=== PATIENT | male | born 1950 | race Two or more races ===

== ENCOUNTER 2024-08-26 13:01 | Outpatient (RCR) | payer MEDICAID, SELFPAY ==
--- NOTE | 2024-08-26 14:53 | CTCCONSULT_ITS ---
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 Jayden Kingston MD [facility] Referring physician. Ramesh Mercedes MD Reason for consultation. 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 History of Present Illness: Patient is a 74-year-old lady who noted a growing mass in the right groin [address] 10/04/2022 at [facility] 3 cm right groin soft tissue mass right external iliac lymphadenopathy and biopsy was performed 10/04/2022 which just revealed fibroepithelial tissue negative for malignancy. On 07/15/2024 the mass suspected to be infected underwent an excisional biopsy revealing invasive squamous SCCA moderate to poorly differentiated suspicious for lymphovascular invasion. Ultrasound and CT scan have been ordered not immediately available for my review. Patient reportedly has another CT scan and PET scan pending along with port placement. Patient now referred for radiation oncology consultation. is making daily wound bandage changes Past Medical History: Atrial fibrillation hypothyroidism hypertension acid reflux chronic constipation allergic rhinitis chronic sinusitis type 2 diabetes BPH kidney stones Medications iron Flomax levothyroxine Xarelto albuterol Cozaar Allergies none to meds Family history. Denies family history of cancer. Social History: Social drinker. Denies smoking has 5 children with current partner. Lives in [place] Review of Systems: Has right lower extremity pain headaches heartburn muscle pain cough discharge from penis easy bruising concern for sexual function rash Physical Exam: General: Well-appearing gentleman no acute distress HEENT: Atraumatic no cephalic extraocular is intact no oral lesion no cervical or supraclavicular adenopathy CV: Chest clear to auscultation heart regular rate and rhythm ABD: Soft no Juliette tenderness EXT: Right inguinal adenopathy noted with wound and packing in place. Assessment:#1. SCCA right groin and biopsy + 07/15/2024. #2. Workup including PET scan and various labs in progress under Dr. Mercedes?s direction. #3. Shall review the imaging studies already performed along with PET scan and labs pending. #4. Briefly reviewed the likely radiation therapy that would be needed for local regional control. #5, Thank you much allow me to evaluate and manage this patient Cc: Ramesh Mercedes MD: Electronically signed by: James Vasquez MD, DABR 08/26/2024 2:51 PM
--- NOTE | 2024-08-26 14:55 | CTCTXPLN_ITS ---
[facility] [place] [address] [place], [place] [address] Physician Clinical Treatment Planning Note Date of Service: 08/26/2024 Name: SIDNEY PEREZ : 1950 The patient has agreed to proceed with Radiation therapy. Tests and supporting medical records were interpreted to assist in defining the tumor location and extent of disease. Further imaging will be necessary to contour and delineate the volume to which the XRT will be provided. A. Treatment Intent: Curative B. Modality: 6 MV C. Requested Technique: VMAT D. Treatment Site: Right groin E. Critical structures to be contoured on plan: F. In order to accomplish this plan, I am ordering/Prescribing the followin. Simulations (s) will be performed to accomplish a reproducible treatment position, to determine optimal treatment portals/beam arrangements, to design beam modifying devices and verify treatment portals on patient prior to the commencement of Radiation Therapy. Pelvis 2. Devices; for immobilization and beam shaping: Right groin 3. CT Guidance for placement of XRT arguello Scan area: 4. Portal images Frequency: 5. Invivo transit dose measurement once per week on all VMAT patients. 6. Special Physics Consult Requested for: 7. Other requests: Special procedure chemo and radiation G. Dose Objectives: Palliative Electronically signed by: James Vasquez M.D. 08/26/2024 2:52 PM
--- NOTE | 2024-08-26 14:57 | CTCTXPLNST_ITS ---
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 Pt Treatment Intent: curative palliative other: Stage: Procedure CPT # Ordered Spec. Procedure 40325 1 Escobedo Complex (set-up) 84784 pelvis 1 Escobedo Simple 13448 IMRT Plan 66834 1 MLC Devices VMAT 98311 3 Escobedo 3 D 31630 TRTMT dev Complex 97039 Vac-Niurka 1 TRTMT dev simple 37712 Basic Kang 18942 9 Special Dosimetry 32536 Spec Physics 30817 Port Films 55198 SRS Cranial/1FX 36062 SBR 5 FX or Less /ex: 5 = 5 fx 04363 IMRT Simple 89342 5940 33 IMRT Complex 80240 IGRT 29008 35 Rad del com 6- 57839 Rad del com 11 98910 Cont Med Physics 60715 1 Treatment Planning 40359 1 Rad del com 20 mev 24422 Rad del inter 11-04 18486 Rad del inter 04-15 38224 Rad del simple 610 62550 Rad del simple 04-15 96823 Special Port Plan 00217 TRTMT dev inter 72347 Isodose Complex 41974 Isodose simple 85103 Resp Motion Mgmt Simulation 05912 Placement of Fiducial Markers 74022 Electronically Signed By: James Vasquez MD, ASHLEYR 08/26/2024 2:55 PM
== END 2024-09-24 23:59 | disposition home or self-care (01) ==
LOC: SCTC 13:01
PROVIDERS: PCP Internal Medicine; Referring Provider Radiology Therapeutic Radiology; Visit Provider Radiology Therapeutic Radiology
DX: C76.3 Malignant neoplasm of pelvis (principal)
CPT/HCPCS: 77470; 99213; G0463

== ENCOUNTER → 2024-09-16 | Outpatient (CLI) | payer MEDICAID, SELFPAY ==
--- NOTE | 2024-09-16 15:30 | XR_ITS ---
EXAMINATION: PET/CT FUSION SKULL TO THIGH EXAM DATE AND TIME: September 16, 2024 1550 hrs. Indications: Diagnosis unspecified cancer, prior to treatment, staging, CT pelvis October 04, 2022 right groin mass right pelvic lymphadenopathy CTDI:vol (mGy) 15.76 DLP: (mGycm) 1626 PROCEDURE: 15.7 mCi FDG was administered intravenously To allow for distribution and uptake of radiotracer, the patient was allowed to rest quietly in a shielded room. Imaging was performed on an integrated 16-slice PET/CT scanner, with scanning from the skull base to the mid thigh. Serum blood glucose at the time of the injection was measured 104 mg/dL. CT scanning was performed without oral or intravenous contrast material. FINDINGS: Head and Neck: There is no eden hypermetabolism in the neck. The visualized portions of the brain are normal in appearance on CT. Chest: 6 mm right infrahilar hypermetabolic lymph node Non hypermetabolic parenchymal disease in both lower lobes Abdomen and Pelvis: 10 mm hypermetabolic focus medial right lobe liver axial image 163 10 mm retrocaval hypermetabolic lymph node axial image 193 Multiple weakly hypermetabolic periaortic lymph nodes, the largest, axial image 197 measures 18 mm and more caudad left lateral periaortic lymph node 25 mm 15 mm hypermetabolic left common iliac lymph nodes 5 cm hypermetabolic right common femoral lymph node with multiple bilateral smaller hypermetabolic inguinal lymph nodes Anterior thigh on the right 28 mm hypermetabolic lymph node Musculoskeletal: Hypermetabolic right transverse process T1 IMPRESSION: 6 mm hypermetabolic right infrahilar lymph node 8mm hypermetabolic focus medial right lobe the liver, recommend MRI liver follow-up pre and post intravenous gadolinium Extensive hypermetabolic abdominal and pelvic lymphadenopathy as above, including large right common femoral and anterior right thigh lymphadenopathy, the latter amenable to CT-guided percutaneous biopsy as clinically warranted
== END | disposition home or self-care (01) ==
PROVIDERS: PCP Nurse Practitioner Family; Referring Provider Internal Medicine Hematology & Oncology; Visit Provider Internal Medicine Hematology & Oncology
DX: C77.4 Secondary and unspecified malignant neoplasm of inguinal and lower limb lymph nodes (principal); R59.0 Localized enlarged lymph nodes
CPT/HCPCS: 78816; A9552

== ENCOUNTER 2024-10-24 08:36 | Outpatient (RCR) | payer MEDICAID, SELFPAY ==
--- NOTE | 2024-09-26 10:22 | CTCSNOTE_ITS ---
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 (C) CT slices included pelvis (D) VMAT Will be needed for maximum sparing of adjacent normal critical structures. (E) Patient tolerated the simulation well and left the room in good condition. Electronically signed by: James Vasquez MD, MITZI 09/26/2024 10:20 AM
== END 2024-10-25 23:59 | disposition home or self-care (01) ==
LOC: SCTC 08:36
PROVIDERS: PCP Nurse Practitioner Family; Referring Provider Nurse Practitioner Family; Visit Provider Radiology Therapeutic Radiology
DX: Z51.0 Encounter for antineoplastic radiation therapy (principal); C49.5 Malignant neoplasm of connective and soft tissue of pelvis
CPT/HCPCS: 77014; 77290; 77300; 77301; 77334; 77336; 77338; 77385; 99424; 99425

== ENCOUNTER 2024-11-17 07:53 | Outpatient (RCR) | payer MEDICAID, SELFPAY ==
--- NOTE | 2024-10-27 09:59 | CTCTRTNOTE_ITS ---
[facility] [address] [place], [place] [address] Weekly Management Date: 10/27/2024 ?? Name: SIDNEY PEREZ : 1950 A. Patient is currently at 1620cGy. B. Patient is experiencing difficulty voiding urine. Also is having chest pain with imaging study showing possible aortic aneurysm. To be referred to thoracic surgery by primary MD.. BP noted to be elevated and this will be brought up with primary care physician as well. C. Resume radiation therapy. Flomax ordered. Electronically signed by: James Vasquez M.D. 10/27/2024 9:57 AM
== END 2024-11-24 23:59 | disposition home or self-care (01) ==
LOC: SCTC 07:53
PROVIDERS: PCP Nurse Practitioner Family; Referring Provider Nurse Practitioner Family; Visit Provider Radiology Therapeutic Radiology
DX: Z51.0 Encounter for antineoplastic radiation therapy (principal); C77.4 Secondary and unspecified malignant neoplasm of inguinal and lower limb lymph nodes; C80.1 Malignant (primary) neoplasm, unspecified; L59.9 Disorder of the skin and subcutaneous tissue related to radiation, unspecified; K12.33 Oral mucositis (ulcerative) due to radiation; Y84.2 Radiological procedure and radiotherapy as the cause of abnormal reaction of the patient, or of later complication, without mention of misadventure at the time of the procedure
CPT/HCPCS: 77336; 77385; 99211; G0463

== ENCOUNTER 2024-12-05 07:49 | Outpatient (CLI) | payer MEDICAID, SELFPAY ==
[2024-12-01 07:25] LABS: Basophils # (Auto) 0.1 Thou/mm3 (0.0-0.2); Basophils % (Auto) 1 % (0-2.5); Eosinophils # (Auto) 0.6 Thou/mm3 (0.0-0.5); Eosinophils % (Auto) 9 % (0-10); Hematocrit 35.5 % (41.0-53.0); Hemoglobin 11.6 g/dL (13.5-16.0); Immature Granulocytes Auto 0.01 Thou/mm3 (0.00-0.00); Lymphocytes # (Auto) 1.3 Thou/mm3 (1.0-4.8); Lymphocytes % (Auto) 21 % (10-50); Mean Corpuscular HGB Conc 32.7 g/dl (31.0-37.0); Mean Corpuscular Hemoglobin 25.3 pg (25.0-35.0); Mean Corpuscular Volume 78 fL (80-100); Monocytes # (Auto) 0.6 Thou/mm3 (0.0-0.8); Monocytes % (Auto) 9 % (0-12); Neutrophils # (Auto) 3.9 Thou/mm3 (1.8-7.7); Neutrophils % (Auto) 60 % (37-80); Nucleated Red Blood Cell # 0.00 Thou/mm3 (0.00-0.00); Nucleated Red Blood Cell % 0 /100 WBC (0); Platelet Count 245 Thou/mm3 (140-440); RDW Standard Deviation 50.8 fL (35.1-43.9); Red Blood Count 4.58 Miln/mm3 (4.50-5.90); White Blood Count 6.4 Thou/mm3 (3.8-10.6)
[2024-12-01 07:41] LABS: Anion Gap 10 (7-16); BUN/Creatinine Ratio 8 Ratio (12-20); Blood Urea Nitrogen 10 mg/dL (9-23); Calcium 9.4 mg/dL (8.3-10.6); Carbon Dioxide 25.8 mMol/L (20.0-31.0); Chloride 102 mMol/L (98-107); Creatinine (Component) 1.2 mg/dL (0.6-1.3); Glucose 102 mg/dL (74-106); INR 1.0 (0.9-1.3); Osmolality,Calculated 274 (275-295); Partial Thromboplastin Time 27.4 Seconds (22.0-36.0); Potassium 4.0 mMol/L (3.4-5.1); Prothrombin Time 10.9 Seconds (9.0-12.2); Sodium 138 mMol/L (136-145); eGFR > 60 See Note
[2024-12-02 08:58] VITALS: BP 132/78; PULSE 61; RESP 12; TEMP 36.1; O2SAT 95; BMI 31.0
--- NOTE | 2024-12-02 09:19 | PC.NURSE ---
patient scheduled for port placement and taking blood thinners. Dr. Vernon notified of patient last dose of Xarelto was 11/27/2024 and last aspirin dose sunday11/28/2024. Doctor wants patient off both blood thinners for 5 days, procedure rescheduled for 12/04/2024, patient and made aware to hold blood thinners until day of procedure.
[2024-12-05] VITALS (14 sets, daily range): BP systolic 121–134; BP diastolic 63–74; PULSE 47–64; RESP 12–22; TEMP 36.6; O2SAT 96–100; BMI 31.8
--- NOTE | 2024-12-05 09:30 | XR_ITS ---
Examination: IR venous implantation Port-A-Cath. Ultrasound-guided needle placement right internal jugular vein. Fluoroscopy AP Chest, portable single view Exam date and time: December 05, 2024 0848 hours INDICATIONS: Diagnosis squamous cell carcinoma, need for long-term intravenous chemotherapy. Informed consent provided Technique: A timeout was completed, verifying correct patient, procedure, site, positioning, and special equipment if applicable The patient was placed in a dependent position appropriate for central line placement based on the vein to be cannulated. The patient's right neck and chest was prepped and draped in sterile fashion. Maximum Sterile Barrier Technique used including cap, mask, sterile gown, sterile gloves, and sterile full body drape. If ultrasound technique used: sterile gel and sterile probe covers. Hand Hygiene performed using proper scrub, soap and water, or alcohol-based hand rub. Site right portable apparatus utilized to confirm patency of the right internal jugular vein Utilizing ultrasonographic guidance successful 21-gauge needle puncture into the right internal jugular vein Ultrasound images were recorded and stored. Successful micropuncture with a 21-gauge needle was performed. Blunt dissection utilized to form pocket in the subcutaneous chest 8 Gabonese 23 cm Port-A-Cath line connected to the Port-A-Cath reservoir and placed through a venous sheath into the superior vena cava in proper position Perfusion to the extremity distal to the point of catheter insertion was checked and found to be adequate The attending radiologist was present for the entire procedure Estimated blood loss3 cc. Findings: Under fluoroscopy, the tip of the Port-A-Cath is in good position in the vena cava. Portable chest x-ray, post Port-A-Cath, as ordered. Impression: Successful ultrasound-guided needle placement right internal jugular vein. Successful IR venous implantation [id number]-[id number]-[id number] 0.1 minute radiation dose 0.81 milligray. One spot fluoroscopic chest film AP portable chest completion procedure demonstrates satisfactory position Port-A-Cath May use Port-A-Cath.
[2024-12-05] MEDS: SODIUM CHLORIDE 0.9% 500 ML 500 ML 20 ML IV (09:34)
[2024-12-05] MEDS: fentaNYL CIT INJ 50 mCg/ML AMP 2ML 100 MCG IVP (09:57)
[2024-12-05] MEDS: LIDOCAINE INJ PF 1% 30 ML VIAL 8 ML INFL (09:59)
[2024-12-05] MEDS: LIDOCAINE 1% W/EPI 1:100K 20 ML VIAL 7 ML INFL (09:59)
[2024-12-05] MEDS: HEPARIN SOD LOCK SYR 100 UNIT/ML 500 UNIT STFIELD (09:59)
--- NOTE | 2024-12-05 17:17 | PC.NURSE ---
1022 patient is awake, alert, breathing unlabored, s/p port placement to right IJ, dressing dry with no bleeding, patient transferred to lab technician for 1hr recovery. 1155 patient is awake, alert, breathing unlabored, dressing dry with no bleeding, patient able to drink water with no nausea or vomiting, able to ambulate to bathroom with cane and void, mets discharge criteria, discharge instructions given in fijian and gibraltarian per patient' family member request, patient discharged home in wheelchair with all belongings.
== END 2024-12-05 11:55 | disposition home or self-care (01) ==
PROVIDERS: Radiology Diagnostic Radiology; PCP Nurse Practitioner Family; Referring Provider Internal Medicine Hematology & Oncology; Visit Provider Internal Medicine Hematology & Oncology
DX: C44.722 Squamous cell carcinoma of skin of right lower limb, including hip (principal); Z01.812 Encounter for preprocedural laboratory examination
CPT/HCPCS: 36558; 36415; 76937; 77001; 80048; 85025; 85610; 85730; C1769; C1788; C1894; J0689; J0690; J1642; J3010; J3490; J7050; J7999

== ENCOUNTER 2024-12-17 07:19 | Outpatient (RCR) | payer MEDICAID, SELFPAY ==
--- NOTE | 2024-11-26 08:36 | CTCTRTNOTE_ITS ---
[facility] [address] [place], [place] [address] Weekly Management Date: 11/26/2024 ?? Name: SIDNEY KWON : 1950 A. Patient is currently at 3780 cGy. B. Patient is well-healed from the period of rest. C. Resume radiation therapy. Has about 3 more weeks of radiation left. Electronically signed by: James Vasquez M.D. 11/26/2024 8:34 AM
== END 2024-12-25 23:59 | disposition home or self-care (01) ==
LOC: SCTC 07:19
PROVIDERS: PCP Nurse Practitioner Family; Referring Provider Nurse Practitioner Family; Visit Provider Radiology Therapeutic Radiology
DX: Z51.0 Encounter for antineoplastic radiation therapy (principal); C76.3 Malignant neoplasm of pelvis; L59.9 Disorder of the skin and subcutaneous tissue related to radiation, unspecified; Y84.2 Radiological procedure and radiotherapy as the cause of abnormal reaction of the patient, or of later complication, without mention of misadventure at the time of the procedure
CPT/HCPCS: 77336; 77385

== ENCOUNTER 2024-12-31 07:53 | Outpatient (RCR) | payer MEDICAID, SELFPAY ==
--- NOTE | 2024-12-31 08:36 | CTCTSUMM_ITS ---
[facility] 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 (C) Concomitant Chemotherapy: Yes (D) Radiation Dates: 10/13/2024 through 12/17/2024 patient seen for first follow-up on Treatment Prescription R groin VMAT 6 MV PHOT 5,940 cGy 33 180 cGy Approved (E) All arguello were treated using customized MLC Blocks (F) Finding at Discharge: Patient seen for first follow-up on 12/31/2024. There was significant decrease in the size of the right groin mass. (G) Discharge Instructions and F/U Appt was given: The patient was also advised to continue follow-up with Dr. Mercedes and primary care physician: Cc: Ramesh Mercedes MD Electronically signed by: James Vasquez MD, ASHLEYR 12/31/2024 8:34 AM
== END 2025-01-25 23:59 | disposition home or self-care (01) ==
LOC: SCTC 07:53
PROVIDERS: PCP Nurse Practitioner Family; Referring Provider Nurse Practitioner Family; Visit Provider Radiology Therapeutic Radiology
DX: C77.4 Secondary and unspecified malignant neoplasm of inguinal and lower limb lymph nodes (principal)
CPT/HCPCS: 99212; G0463

== ENCOUNTER → 2025-03-26 | Outpatient (CLI) | payer MEDICAID, SELFPAY ==
--- NOTE | 2025-03-26 07:30 | XR_ITS ---
Examination: CT chest, without intravenous contrast. CT abdomen, without intravenous contrast. CT pelvis, without intravenous contrast. 2-D sagittal and coronal reconstructions. 3-D reconstructions. Date and time of exam: March 26, 2025, 0737 hours, comparison October 04, 2022 CT pelvis, CT scan September 16, 2024 CTDI vol (mgy) 10.4 DLP (MGycm) 875 Technique: Multiple CT images, 3.0 mm slice thickness, obtained chest, abdomen, pelvis, with the high-resolution 64 slice scanner.. Sagittal and coronal 2-D reconstructions are obtained. 3-D reconstructions Low dose protocols were performed. One or more of the following dose reduction techniques were used; automated exposure control, adjustment of the mA and/or KV according to patient size, use of iterative reconstruction technique. Findings: Aneurysmal dilatation ascending thoracic aorta 4.3 cm Pulmonary artery segments are not enlarged On this noncontrast study no definite mediastinal lymphadenopathy Heavy calcification left anterior descending coronary artery Scarring in the upper lung zones and fairly diffusely in the left lung No pulmonary edema or yenifer lobar pneumonia Elevation left hemidiaphragm No liver lesions on this noncontrast study Gallbladder wall appears mildly thickened Spleen is not enlarged No pancreatic or adrenal mass Significant improvement in periaortic lymphadenopathy, remaining subcentimeter lymph nodes However, left common iliac lymph node measures 23 mm compared to 11 mm on September 16, 2024 with additional external iliac lymph nodes, the largest 25 mm Mild prostatomegaly Urinary bladder intact Merissa mass in the right groin is smaller, 40 mm compared with 7 cm Severe osteopenia IMPRESSION: Mild aneurysmal dilatation ascending thoracic aorta On this study no definite mediastinal lymphadenopathy Left lateral para-aortic lymphadenopathy has improved compared to the prior CT scan September 16, 2024 However, left common iliac lymph node measures 23 mm compared to 11 mm on September 16, 2024 with additional external iliac lymph nodes, the largest 25 mm Lymph merissa mass in the right groin measures 4.0 cm compared to 7.0 cm on September 16, 2024
== END | disposition home or self-care (01) ==
PROVIDERS: Referring Provider Internal Medicine Hematology & Oncology; Visit Provider Internal Medicine Hematology & Oncology
DX: I71.21 Aneurysm of the ascending aorta, without rupture (principal); R59.1 Generalized enlarged lymph nodes; R19.09 Other intra-abdominal and pelvic swelling, mass and lump; C77.4 Secondary and unspecified malignant neoplasm of inguinal and lower limb lymph nodes
CPT/HCPCS: 71250; 74176

== ENCOUNTER 2025-04-23 13:07 | Inpatient (IN) | payer MEDICAID, SELFPAY ==
[2025-04-23] VITALS (12 sets, daily range): BP systolic 95–130; BP diastolic 69–88; PULSE 78–150; RESP 16–20; TEMP 36.4–37.1; O2SAT 94–100; BMI 25.8
--- NOTE | 2025-04-23 13:40 | XR_ITS ---
EXAMINATION: AP chest single view TECHNIQUE: AP portable semiupright chest single view Date and time: April 23, 2025, 1351 hours, comparison June 07, 2020 INDICATION: Cough and chest pain beginning 2 days ago. FINDINGS: Prominent elevation left hemidiaphragm Subsegmental atelectasis left base Pneumonia right base obscuring detail lateral portion right hemidiaphragm Mild to moderate enlargement cardiac contour with ectatic enlarged thoracic aorta Right internal jugular Port-A-Cath tip SVC IMPRESSION: Pneumonia right base
--- NOTE | 2025-04-23 14:11 | PC.NURSE ---
PT REMOVED IV THAT WAS PLACED BY JALEESA MAYNARD, DR. AREVALO MADE AWARE.
--- NOTE | 2025-04-23 14:47 | PD.EDARRY ---
ED Arrhythmia Palp. 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 Per medics, [place] staff reported the patient had complained of feeling short of breath and saturating 88% on room air. State they placed the patient on oxygen prior to calling 911. On their arrival and once connected to the heart monitor, patient appeared to be in ventricular tachycardia. No other complaints reported to them. In the ED, patient reports feeling fine and has no complaints. Denies chest pain, cough, abdominal pain, n/v/d, or urinary symptoms. Related Data Home Medications ?Medication ?Instructions ?Recorded ?Confirmed amiodarone 200 mg tablet 200 mg PO QDAY 10/04/22 12/02/24 rivaroxaban 20 mg tablet (Xarelto) 20 mg PO QDAY 10/04/22 12/02/24 Held on 12/05/24. Instructions: Resume on 12/07/24. hold xarento until Sunday12/07/2024 tamsulosin 0.4 mg capsule 0.4 mg PO QDAY 10/04/22 12/02/24 aspirin 81 mg tablet,delayed 81 mg PO QDAY 12/02/24 12/02/24 release Held on 12/05/24. Instructions: Resume on 12/07/24. hold aspirin until Sunday12/07/2024 docusate sodium 100 mg capsule 100 mg PO QDAY 12/02/24 12/02/24 furosemide 20 mg tablet 20 mg PO QDAY 12/02/24 12/02/24 levothyroxine 50 mcg tablet 50 mcg PO QDAY 12/02/24 12/02/24 (Synthroid) losartan 50 mg tablet 50 mg PO QDAY 12/02/24 12/02/24 tramadol 50 mg tablet 50 mg PO Q8H 12/02/24 12/02/24 Allergies Allergy/AdvReac Type Severity Reaction Status Date / Time No Known Allergies Allergy Verified 07/11/25 09:01 Review of Systems Review of Systems Systems Reviewed: All systems reviewed, normal except as documented Past Medical History Past Medical History NEUROLOGIC: Positive Transient Ischemic Attacks (TIA) CARDIAC: Positive Atrial Fibrillation, Congestive Heart Failure and Hypertension GASTROINTESTINAL: Positive Gastrointestinal Disorders and Hiatal Hernia GENITOURINARY: Positive Benign Prostatic Hyperplasia MUSCULOSKELETAL: Positive Musculoskeletal Disorders ENT: Positive Cataracts ENDOCRINE: Positive Hypothyroidism OTHER HISTORY: Positive Chemotherapy, Radiation Therapy, Chicken Pox, Cancer and Lung Cancer Family History FAMILY HISTORY: Positive Family Cancer (mother) Surgical History SURGICAL: Positive Cardiac Surgery, Cardiac Catheterization and Angiogram (2020) Social History SMOKING STATUS: Former smoker SUBSTANCE USE: does not use ED Exam General Limitations: Present no limitations General appearance: Present alert and in no apparent distress Head Head exam: Present atraumatic Eye Eye exam: Present normal appearance, PERRL and EOMI ENT ENT exam: Present normal exam, normal oropharynx and mucous membranes moist Neck Neck exam: Present normal inspection, full ROM and trachea midline Chest Chest inspection: Present normal inspection and symmetric chest wall rise Respiratory Respiratory exam: Present normal lung sounds bilaterally Cardiovascular Cardiovascular exam: Present regular rate, normal rhythm and normal heart sounds Abdominal Exam Abdominal exam: Present soft and normal bowel sounds Extremities Exam Extremities exam: Present normal inspection, full ROM and other (No leg edema ) Back Exam Back exam: Present normal inspection and full ROM Neurological Exam Neurological exam: Present alert and CN II-XII intact Psychiatric Psychiatric exam: Present normal affect and normal mood Skin Skin exam: Present warm, dry, intact and normal color Course Quality Measures none Orders Category Date Time Status Roustabout Supervisor NOW Care 04/23/25 13:40 Active Continuous Pulse Oximetry NOW Care 04/23/25 13:40 Completed EKG (ED ONLY) *Do not use* NOW Care 04/23/25 13:09 Completed Insert IV NOW Care 04/23/25 13:40 Active EKG (ED Only) Stat Exams 04/23/25 13:09 Ordered XR chest 1V portable Stat Exams 04/23/25 13:40 Taken CBC Stat Lab 04/23/25 13:40 Ordered Comprehensive Metabolic Panel Stat Lab 04/23/25 13:40 Ordered Partial Thromboplastin Time Stat Lab 04/23/25 13:40 Ordered Prothrombin Time with INR Stat Lab 04/23/25 13:40 Ordered Troponin I Stat Lab 04/23/25 13:40 Ordered Urinalysis Stat Lab 04/23/25 13:40 Ordered Amiodarone Inj [Cordarone Inj] 200 mg Med 04/23/25 13:43 Discontinued Dextrose 5%-Water [D5w] 100 ml IV X1 Amiodarone [Cordarone] Med 04/23/25 14:22 Discontinued 200 mg PO X1 ONE LORazepam [Ativan] Med 04/23/25 14:22 Discontinued 1 mg PO X1 ONE Sodium Chloride 0.9% 1000 ml [Ns] 1,000 ml Med 04/23/25 13:40 Active IV 50 mls/hr Oxygen Delivery NOW RT 04/23/25 13:40 Active Vital Signs Vital signs: Vital Signs Temperature 98.5 F 04/23/25 13:15 Pulse Rate 150 H 04/23/25 13:15 Respiratory Rate 20 04/23/25 13:15 Blood Pressure 112/77 04/23/25 13:15 Pulse Oximetry (%) 98 04/23/25 13:15 Oxygen Delivery Method Room Air 04/23/25 13:15 Arrhythmia/Palpitations MDM Narrative MDM Narrative:: Fátima Krause am scribing for and in the presence of Dr. Turk. 1811: I spoke with hospitalist team C for admission. 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 ) Lab and/or radiology exams considered but not ordered:: None Interpretation Summary: Ordering Physician: Macario Turk MD Date of Service: 04/23/25 Procedure(s): XR chest 1V portable Accession Number(s): [id number] cc: Macario Turk MD; Nathan Sigala MD; Zay Vernon MD~ EXAMINATION: AP chest single view TECHNIQUE: AP portable semiupright chest single view Date and time: April 23, 2025, 1351 hours, comparison June 07, 2020 INDICATION: Cough and chest pain beginning 2 days ago. FINDINGS: Prominent elevation left hemidiaphragm Subsegmental atelectasis left base Pneumonia right base obscuring detail lateral portion right hemidiaphragm Mild to moderate enlargement cardiac contour with ectatic enlarged thoracic aorta Right internal jugular Port-A-Cath tip SVC IMPRESSION: Pneumonia right base Dictated By: Zay Vernon MD Signed By: <Electronically signed by Zay Vernon MD in OV> 04/23/25 1507 Medications / Prescriptions Medications or Prescriptions considered but not ordered:: None Medication administrations:: Medication Administration History Sodium Chloride (Ns) 1,000 mls @ 50 mls/hr IV .Q20H ONE Stop: 04/24/25 09:39 Discontinued Medications Amiodarone HCl (Amiodarone Hcl 200 Mg Tablet) 200 mg PO X1 ONE Stop: 04/23/25 14:23 Amiodarone HCl 200 mg/ (Dextrose) 104 mls @ 600 mls/hr IV X1 ONE Stop: 04/23/25 13:53 Lorazepam (Lorazepam 0.5 Mg Tablet) 1 mg PO X1 ONE Stop: 04/23/25 14:23 Consultations Consultation(s) initiated? (list below): No Diagnosis Most likely diagnosis given after review of the tests above:: Rapid afib/aflutter dementia Admission Indicated Admission indicated?: indicated Admission Request Was there a request for admission?: Yes Admission Attestation Admission request attestation: Discussed case with [] from Hospitalist service regarding admission. Discussed patients ED course, exam findings, labs, and radiology results. The Hospitalist [agrees,declines] to accept the patient for admission. Disposition Plan Disposition Plan: Admit Discharge Plan Plan Patient Disposition: Admit Acute Care w/in Hospital Prescriptions/Referrals Prescriptions/Med Rec: No Action amiodarone 200 mg Tablet 200 mg PO QDAY tamsulosin 0.4 mg Capsule 0.4 mg PO QDAY Xarelto 20 mg Tablet 20 mg PO QDAY Rx Instructions: must administer with evening meal docusate sodium 100 mg capsule 100 mg PO QDAY tramadol 50 mg tablet 50 mg PO Q8H levothyroxine [Synthroid] 50 mcg tablet 50 mcg PO QDAY furosemide 20 mg tablet 20 mg PO QDAY aspirin 81 mg tablet,delayed release (DR/EC) 81 mg PO QDAY Patient Comments: TAKE 1 TABLET BY MOUTH ONCE DAILY losartan 50 mg tablet 50 mg PO QDAY Referrals: Nathan Sigala MD [Primary Care Provider] - In 1 week Problem List Clinical Impression: Rapid atrial fibrillation, Dementia Patient/Caregiver Discharge Instructions Print Language: Nauruan Stand Alone Forms: Nedra Award Info., Patient Portal Info Letter
[2025-04-23] MEDS: AMIODARONE HCL 200 MG TABLET PO (15:11)
--- NOTE | 2025-04-23 16:59 | PC.NURSE ---
Pt. pulled out IV and pulled off all cardiac monitor technician leads as well as Sp02. Pt. is confused and trying to get out of bed. Pt. has a philippe draining to bag below bed. Pt. has a brief and had another BM. Pt. cleaned and brief changed. Pt. has BM today X 3. Pt. has a port to left upper chest.
--- NOTE | 2025-04-23 17:04 | XR_ITS ---
Examination: CT brain head without contrast. 2-D sagittal coronal reconstructions Date and time of exam: April 23, 2025, 1956 hours INDICATIONS: Altered mental status today CTDI: vol (mGy): 56 DLP: (mGycm): 1126 Technique: Multiple CT axial sections of the brain have been obtained, 5 mm slice thickness. Contrast has not been administered. 2-D sagittal, coronal reconstructions have been obtained Low dose protocols were performed. One or more of the following dose reduction techniques were used; automated exposure control, adjustment of the mA and/or KV according to patient size, use of iterative reconstruction technique. Findings: No significant ventricular enlargement. Frontal atrophy Intra-axial or extra-axial hemorrhage density is not seen. No mass effect or midline shift Basal cisterns are not remarkable. Fourth ventricle is midline. Cranial vault intact. Impression: Negative for acute hemorrhage, mass effect or midline shift
[2025-04-23 17:10] LABS: Collection Type, Urine Clean Catch
[2025-04-23 17:27] LABS: Bilirubin,Urine Negative (Negative); Blood,Urine Trace (Negative); Calcium Oxalate Crystals,Urine 2+; Clarity,Urine Turbid (Clear/Hazy); Color,Urine Yellow (Lt Yel-Yel); Glucose, Urine Negative (Negative); Ketones,Urine Negative (Negative); Leukocyte Esterase,Urine Positive (Negative); Nitrite,Urine Negative (Negative); PH,Urine 7.0 (5.0-7.0); Protein,Urine Trace (Neg - Trace); RBC,Urine 29 /hpf (0-3); Specific Gravity,Urine 1.018 (1.001-1.035); Squamous Epithelial Cell,Urine < 1 /hpf (0-5); Urobilinogen,Urine Negative mg/dL (0.0-1.0); WBC,Urine 20 /hpf (0-5)
[2025-04-23] MEDS: LORazepam 2 MG/ML VIAL 1 MG IVP (17:42)
[2025-04-23] MEDS: AMIODARONE 150 MG IVPB 150 MG/100 ML BAG 600 MG IV (17:45)
[2025-04-23 17:54] LABS: Basophils # (Auto) 0.1 Thou/mm3 (0.0-0.2); Basophils % (Auto) 1 % (0-2.5); Eosinophils # (Auto) 0.1 Thou/mm3 (0.0-0.5); Eosinophils % (Auto) 1 % (0-10); Hematocrit 33.0 % (41.0-53.0); Hemoglobin 10.6 g/dL (13.5-16.0); Immature Granulocytes Auto 0.05 Thou/mm3 (0.00-0.00); Lymphocytes # (Auto) 0.6 Thou/mm3 (1.0-4.8); Lymphocytes % (Auto) 6 % (10-50); Mean Corpuscular HGB Conc 32.1 g/dl (31.0-37.0); Mean Corpuscular Hemoglobin 26.6 pg (25.0-35.0); Mean Corpuscular Volume 83 fL (80-100); Monocytes # (Auto) 0.6 Thou/mm3 (0.0-0.8); Monocytes % (Auto) 6 % (0-12); Neutrophils # (Auto) 9.4 Thou/mm3 (1.8-7.7); Neutrophils % (Auto) 87 % (37-80); Nucleated Red Blood Cell # 0.00 Thou/mm3 (0.00-0.00); Nucleated Red Blood Cell % 0 /100 WBC (0); Platelet Count 259 Thou/mm3 (140-440); RDW Standard Deviation 51.3 fL (35.1-43.9); Red Blood Count 3.98 Miln/mm3 (4.50-5.90); White Blood Count 10.9 Thou/mm3 (3.8-10.6)
[2025-04-23] MEDS: AMIODARONE 360 MG IVPB 360 MG/200 ML BAG 33.333 MG IV (18:03)
[2025-04-23 18:05] LABS: Alanine Aminotransferase 30 U/L (10-49); Albumin, Serum 4.4 gm/dL (3.4-4.8); Albumin/Globulin Ratio 1.1 (1.2-2.2); Alkaline Phosphatase 125 U/L (46-116); Anion Gap 11 (7-16); Aspartate Amino Transferase 38 U/L (0-34); BUN/Creatinine Ratio 12 Ratio (12-20); Bilirubin,Total 0.7 mg/dL (0.3-1.2); Blood Urea Nitrogen 22 mg/dL (9-23); Calcium 9.2 mg/dL (8.3-10.6); Calcium (Corrected) 9.2 mg/dL (8.5-10.1); Carbon Dioxide 25.5 mMol/L (20.0-31.0); Chloride 100 mMol/L (98-107); Creatinine (Component) 1.8 mg/dL (0.6-1.3); Estimated Creatinine Clearance 33.3 mL/min (>60); Globulin 3.9 gm/dL (2.3-3.5); Glucose 133 mg/dL (74-106); Osmolality,Calculated 277 (275-295); Potassium 4.4 mMol/L (3.4-5.1); Sodium 136 mMol/L (136-145); Total Protein 8.3 gm/dL (5.7-8.2); Troponin I < 0.020 ng/mL (0.0-0.045); eGFR 38 See Note
[2025-04-23 18:08] LABS: INR 1.0 (0.9-1.3); Partial Thromboplastin Time 29.6 Seconds (22.0-36.0); Prothrombin Time 10.8 Seconds (9.0-12.2)
[2025-04-23] MEDS: ZIPRASIDONE INJ 20 MG/ML VIAL (NON-FORMULARY) 10 MG IM (18:08)
--- NOTE | 2025-04-23 18:12 | PC.NURSE ---
Pt. resting in bed, pt. is confused he asked me how much for an oil change? Pt.'s is bedside and states that pt. was in [facility] and fell last night trying to get out of bed. Vanna GOULD is bedside watching pt. for his safety.
[2025-04-23] MEDS: SODIUM CHLORIDE 0.9% 1000 ML 1,000 ML 999 ML IV (21:50)
--- NOTE | 2025-04-23 21:58 | PD.RESHP ---
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 Patient admitted for a fib with RVR. ED Course Summary Vitals: BP 112/77 HR 150 RR 20 R 98.5F O2 sat 98% RA Labs: WBC 10.9 Hgb 10.6 coag wnl BUN 22 Cr 1.8 Cr Cl 33.3 AST 38 ALP 125 UA Turbid LE + 29 RBC 20 WBC +2 calcium oxalate Imaging: Head CT negative for acute hemorrhage, mass effect or midline shift CXR pneumonia right base EKG (in ED chart) HR 146 QTC 413 Treatment: NaCl 1 L, ziprasidone 10mg, amiodarone drip started, lorazepam 1mgx2, amiodarone 200mg Per medics, [place] staff reported the patient had complained of feeling short of breath and saturating 88% on room air. State they placed the patient on oxygen prior to calling 911. On their arrival and once connected to the heart monitor, patient appeared to be in ventricular tachycardia. No other complaints reported to them. Per ED note, patient reports feeling fine and has no complaints. Denies chest pain, cough, abdominal pain, n/v/d, or urinary symptoms. Dr. Patel is his ward assistant. On initial evaluation the patient is AOx1 and GCS 15 however incredibly somnolent most likely secondary to the 2mg of lorzaepam and 10mg of ziprasidone given due to his immense agitation on arrival. Fortunately his was present and assisted with the interview, unfortunately she is not able to articulate most of his medical history because she has been so stressed dealing with his health the last few weeks. Their eldest daughter is the most apt at explaining the recent events but she was unable to be reached by phone at the moment. The history the interviewer could obtain was that the patient was admitted to [facility] recently for about 3 weeks and was discharged to a rehab where he then needed a kidney stents due to a bladder infection. It is unclear how accurate this narrative is. Now at the rehab he had shortness of breath for the past day and was found to be in ventricular tachycardia. His reports patient has urinary discomfort but no chest pain. Family reports he drinks 12-24 beers most days. He has never had any withdrawals or seizures. The is unsure if that is too many beers, states he does not drink when he is sick like this in the hospital but cannot find other exceptions. Of note he drinks more beers when the day is hotter out. Code: Full per , but please re-check with patient when he is able to be more successfully roused and oriented Insulin: None Medical Hx: Please see 1-liner above Medications: metoprolol 25mg BID - all other meds family is unaware of - pending med rec Allergies: NKA Surgical history: Bx of squamous cell cancer Fhx: Noncontributory Living: with Work: [employer] Alcohol: 12-24 beers/ day Cigarettes/tobacco: None Recreational drugs: None All 12 systems reviewed and were negative except otherwise stated in HPI. Exam Vital Signs Temp Pulse Resp BP Pulse Ox O2 Del Method 97.7 F 78 20 107/73 97 Room Air 04/23/25 20:58 04/23/25 20:58 04/23/25 20:58 04/23/25 20:58 04/23/25 20:58 04/23/25 20:58 Narrative Exam GENERAL APPEARANCE: AOx1. Patient is deeply somnolent, however arousable. HEENT: Normocephalic atraumatic, no facial trauma, neck is supple. Lids/conjunctiva normal. Mucous membranes moist, nares normal, lips/teeth normal uvula midline without oral pharyngeal erythema, exudate or swelling TMs normal bilaterally. No lymphangitis/lymphedema. CARDIAC: Regular rate and rhythm, S1+S2 heard. No murmurs, rubs, or gallops noted RESPIRATORY: respiratory effort normal, speaks in full sentences, no tripod position, no accessory muscle use. R lung rales ABDOMINAL: NBS. Soft, ND/NT. No evidence of fluid wave. No pulsatile masses on exam, rebound tenderness, Bullock sign or pain over Mcburney's point. MUSCLES/EXTREMITIES: No abnormal range of motion, no swelling. +Suprapubic tenderness DERM: Warm, pink and dry. No rashes, dermatoses, petechiae or lesions. NEUROLOGICAL: Speech is clear and appropriate. Normal level of consciousness. Gait and coordination are normal. 5/5 strength in all extremities. PSYCH: Normal mood and affect. Judgement/competence is appropriate Results: Labs 04/25/25 03:17 04/25/25 03:17 Labs: Short CBC 04/23/25 Range/Units 17:25 WBC 10.9 H (3.8-10.6) Thou/mm3 Hgb 10.6 L (13.5-16.0) g/dL Hct 33.0 L (41.0-53.0) % Plt Count 259 (140-440) Thou/mm3 BMP 04/23/25 17:25 Sodium 136 Potassium 4.4 Chloride 100 Carbon Dioxide 25.5 BUN 22 Creatinine 1.8 H Glucose 133 H Calcium 9.2 Cardiac Enzymes 04/23/25 Range/Units 17:25 Troponin I < 0.020 (0.0-0.045) ng/mL Liver Function 04/23/25 Range/Units 17:25 Total Bilirubin 0.7 (0.3-1.2) mg/dL AST 38 H (0-34) U/L ALT 30 (10-49) U/L Alkaline Phosphatase 125 H (46-116) U/L Albumin 4.4 (3.4-4.8) gm/dL Urine 04/23/25 Range/Units 16:54 Urine Color Yellow (Lt Yel-Yel) Urine Clarity Turbid A (Clear/Hazy) Urine pH 7.0 (5.0-7.0) Ur Specific Aurora 1.018 (1.001-1.035) Urine Protein Trace (Neg - Trace) Urine Glucose (UA) Negative (Negative) Quality Measures Quality Measures VTE prophylaxis and none Advance care planning discussed with:: spouse Medications Home Medications and Allergies Home Medications ?Medication ?Instructions ?Recorded ?Confirmed ?Type amiodarone 200 mg tablet 200 mg PO QDAY 10/04/22 04/24/25 History rivaroxaban 20 mg tablet (Xarelto) 20 mg PO QDAY 10/04/22 04/24/25 History tamsulosin 0.4 mg capsule 0.4 mg PO QDAY 10/04/22 04/24/25 History aspirin 81 mg tablet,delayed 81 mg PO QDAY 12/02/24 04/24/25 History release docusate sodium 100 mg capsule 100 mg PO QDAY 12/02/24 04/24/25 History furosemide 20 mg tablet 20 mg PO QDAY 12/02/24 04/24/25 History levothyroxine 50 mcg tablet 50 mcg PO QDAY 12/02/24 04/24/25 History (Synthroid) losartan 50 mg tablet 50 mg PO QDAY 12/02/24 04/24/25 History tramadol 50 mg tablet 50 mg PO Q8H 12/02/24 04/24/25 History magnesium hydroxide 400 mg/5 mL 5 ml PO QDAY PRN constipation 04/24/25 04/24/25 History oral suspension (Gentle Laxative (magnesium hydroxide)) metoprolol tartrate 50 mg tablet 25 mg PO BID 04/24/25 04/24/25 History (Lopressor) montelukast 10 mg tablet 10 mg PO QDAY 04/24/25 04/24/25 History quetiapine 25 mg tablet 50 mg PO BID 04/24/25 04/24/25 History Allergies Allergy/AdvReac Type Severity Reaction Status Date / Time No Known Allergies Allergy Verified 12/05/24 09:01 Visit Medications Acetaminophen (Acetaminophen 325 Mg Tablet) 650 mg PO Q6H PRN PRN Reason: Fever >101.5 Stop: 05/23/25 21:23 Diazepam (Diazepam Inj 5 Mg/Ml Vial 2 Ml) 10 mg IVP X1 PRN PRN Reason: Breakthrough Agitation Folic Acid (Folic Acid 1 Mg Tablet) 1 mg PO QDAY SHONA Stop: 05/24/25 08:59 Sodium Chloride (Ns) 1,000 mls @ 50 mls/hr IV .Q20H ONE Stop: 04/24/25 09:39 Last Admin: 04/23/25 15:13 Dose: Not Given Amiodarone HCl/Dextrose (Nexterone Ivpb) 360 mg in 200 mls @ 33.333 mls/hr IV .Q6H ONE Stop: 04/23/25 23:02 Last Admin: 04/23/25 18:03 Dose: 33.333 mls/hr Amiodarone HCl/Dextrose (Nexterone Ivpb) 360 mg in 200 mls @ 16.667 mls/hr IV .Q12H SHONA Stop: 04/24/25 23:02 Sodium Chloride (Ns) 1,000 mls @ 999 mls/hr IV .Q1H1M ONE Stop: 04/23/25 22:33 Last Admin: 04/23/25 21:50 Dose: 999 mls/hr Ceftriaxone Sodium/Dextrose (Rocephin/D5w 1gm Iv Premix) 1 gm in 50 mls @ 100 mls/hr IV QDAY [facility] Stop: 04/30/25 21:57 Lorazepam (Lorazepam 0.5 Mg Tablet) 0.5 mg PO Q4HR PRN PRN Reason: CIWA Score 2-6 Stop: 04/28/25 21:23 Lorazepam (Lorazepam 0.5 Mg Tablet) 1 mg PO Q4HR PRN PRN Reason: CIWA SCORE 7-11 Stop: 04/28/25 21:29 Lorazepam (Lorazepam 0.5 Mg Tablet) 2 mg PO Q4HR PRN PRN Reason: CIWA SCORE 12-15 Stop: 04/28/25 21:29 Thiamine HCl (Thiamine Inj 100 Mg/Ml Vial 2 Ml) 100 mg IVP QDAY [facility] Stop: 05/24/25 08:59 Discontinued Medications Amiodarone HCl (Amiodarone Hcl 200 Mg Tablet) 200 mg PO X1 ONE Stop: 04/23/25 14:23 Last Admin: 04/23/25 15:11 Dose: 200 mg Amiodarone HCl 200 mg/ (Dextrose) 104 mls @ 600 mls/hr IV X1 ONE Stop: 04/23/25 13:53 Last Admin: 04/23/25 15:14 Dose: Not Given Amiodarone HCl/Dextrose (Nexterone Ivpb) 150 mg in 100 mls @ 600 mls/hr IV .Q10M ONE Stop: 04/23/25 17:10 Last Infusion: 04/23/25 17:56 Dose: Infused Lorazepam (Lorazepam 0.5 Mg Tablet) 1 mg PO X1 ONE Stop: 04/23/25 14:23 Last Admin: 04/23/25 15:11 Dose: 1 mg Lorazepam (Lorazepam 2 Mg/Ml Vial) 1 mg IVP X1 ONE Stop: 04/23/25 17:06 Last Admin: 04/23/25 17:42 Dose: 1 mg Ziprasidone (Ziprasidone Inj 20 Mg/Ml Vial (Non-Formulary)) 10 mg IM X1 ONE Stop: 04/23/25 17:19 Last Admin: 04/23/25 18:08 Dose: 10 mg Assessment & Plan Plan 75 year old male with history of atrial fibrillation, hypertension, diabetes, hyperlipidemia, hypothyroidism, BPH, 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 #A fib with RVR EKG (in ED chart) HR 146 QTC 413. Amiodarone drip started in ED HR resolved from 150 to 65. Plan: -Continue amio drip for 24 hours -Holding home metoprolol -Please consider speaking with Dr. Patel his ward assistant. #Acyte hypoxic respiratory failure #Squamous cell carcinoma malignant neoplasm with liver lung and bone metastasis and lower limb lymph nodes Ddx CAP atypicals gram negatives, or pulm mets [place] staff reported the patient had complained of feeling short of breath and saturating 88% on room air. Has lung pulmonary metastases. Rales heard on physical exam. CXR pneumonia right base, could be volume overload. Plan: -No antibiotics at the moment - patient just completed augmentin at [facility] -FUP sputum cx:___ #SITA Cr 1.6 Most likely secondary to volume depletion Plan: -IVF #UTI reports dysuria. Suprapubic tenderness on physical exam. UA Turbid LE + 29 RBC 20 WBC +2 calcium oxalate. No stones seen on imaging. Please consider CTAP for best visualization or concern for stones is enhanced. Plan: -Ceftriaxone 1g IV QD -FUP urine cx:___ #Alcohol abuse #[facility] Patient drinks 12-24 beers/day has never had alcohol withdrawals. Plan: -[facility] -Folic acid -Thiamine #Hypertension Patient family unable to assist with medications Plan -Restart pending med rec #Noninsulin dependent diabetes Patient was noted to be pre-diabetic. A1c 6.2 Plan: -Diabetes education #Hyperlipidemia Patient family unable to assist with medications Plan -Restart pending med rec #Hypothyroidism Patient family unable to assist with medications Plan -Restart pending med rec #BPH Patient family unable to assist with medications Plan -Restart pending med rec Health Maintenance: Code status: Full DVT prophylaxis: Heparin subq GI prophylaxis: protonix Diet: carb consistent Hearn: yes Lines: PIV Supplemental O2: NC Disposition: Tele bed afib with RVR Patient seen and reviewed with attending Dr. Hall. Note written by Ildefonso Konstantin MD PGY-1 Attending Provider Attestation/Addendum After examination of the patient and review of the clinical data I feel that this patient needs admission to the hospital for further treatment/evaluation. Plan of care discussed with patient and is in agreement. I Jericho Hall MD, attest that I was physically present for gruber portions of evaluation, and examined patient, labs and imagings and plan of care were discussed with IM residents team, and I agree with the findings and plans documented above.
[2025-04-23 22:46] LABS: Procalcitonin 0.13 ng/ml (0.0-0.49)
[2025-04-23 23:52] LABS: COVID-19 Antigen (In-House) Negative (Negative)
[2025-04-24] VITALS (13 sets, daily range): BP systolic 113–149; BP diastolic 54–85; PULSE 65–82; RESP 14–98; TEMP 36.1–36.7; O2SAT 92–98
[2025-04-24 01:09] LABS: Alcohol, Urine Negative (Negative)
[2025-04-24] MEDS: cefTRIAXone/D5w 1gm IV premix 1 GM/50 ML BAG IV ×2 (01:09→08:36)
[2025-04-24] MEDS: AMIODARONE 360 MG IVPB 360 MG/200 ML BAG 16.667 MG IV ×2 (01:16→14:24)
--- NOTE | 2025-04-24 01:22 | PC.NURSE ---
Late Note Entry: Normal Saline infused on left IV site.
[2025-04-24 05:00] LABS: Basophils # (Auto) 0.1 Thou/mm3 (0.0-0.2); Basophils % (Auto) 1 % (0-2.5); Eosinophils # (Auto) 0.3 Thou/mm3 (0.0-0.5); Eosinophils % (Auto) 4 % (0-10); Hematocrit 28.3 % (41.0-53.0); Hemoglobin 9.2 g/dL (13.5-16.0); Immature Granulocytes Auto 0.03 Thou/mm3 (0.00-0.00); Lymphocytes # (Auto) 0.6 Thou/mm3 (1.0-4.8); Lymphocytes % (Auto) 7 % (10-50); Mean Corpuscular HGB Conc 32.5 g/dl (31.0-37.0); Mean Corpuscular Hemoglobin 27.0 pg (25.0-35.0); Mean Corpuscular Volume 83 fL (80-100); Monocytes # (Auto) 0.5 Thou/mm3 (0.0-0.8); Monocytes % (Auto) 6 % (0-12); Neutrophils # (Auto) 6.5 Thou/mm3 (1.8-7.7); Neutrophils % (Auto) 82 % (37-80); Nucleated Red Blood Cell # 0.02 Thou/mm3 (0.00-0.00); Nucleated Red Blood Cell % 0 /100 WBC (0); Platelet Count 197 Thou/mm3 (140-440); RDW Standard Deviation 50.9 fL (35.1-43.9); Red Blood Count 3.41 Miln/mm3 (4.50-5.90); White Blood Count 7.9 Thou/mm3 (3.8-10.6)
[2025-04-24 05:22] LABS: Glucose Estimated Average 131 mg/dL (80-131); Hemoglobin A1C 6.2 % Hgb (4.8-6.0)
[2025-04-24 05:29] LABS: Alanine Aminotransferase 25 U/L (10-49); Albumin, Serum 3.7 gm/dL (3.4-4.8); Albumin/Globulin Ratio 1.2 (1.2-2.2); Alkaline Phosphatase 104 U/L (46-116); Anion Gap 11 (7-16); Aspartate Amino Transferase 35 U/L (0-34); BUN/Creatinine Ratio 14 Ratio (12-20); Bilirubin,Total 0.4 mg/dL (0.3-1.2); Blood Urea Nitrogen 23 mg/dL (9-23); Calcium 8.5 mg/dL (8.3-10.6); Calcium (Corrected) 8.7 mg/dL (8.5-10.1); Carbon Dioxide 24.6 mMol/L (20.0-31.0); Chloride 101 mMol/L (98-107); Creatinine (Component) 1.6 mg/dL (0.6-1.3); Estimated Creatinine Clearance 37.4 mL/min (>60); Globulin 3.1 gm/dL (2.3-3.5); Glucose 118 mg/dL (74-106); Magnesium 2.0 mg/dL (1.6-2.6); Osmolality,Calculated 278 (275-295); Phosphorous 3.4 mg/dL (2.4-5.1); Potassium 4.3 mMol/L (3.4-5.1); Sodium 137 mMol/L (136-145); Total Protein 6.8 gm/dL (5.7-8.2); eGFR 44 See Note
--- NOTE | 2025-04-24 07:55 | EKG_ITS ---
[facility] Test Date: 2025-04-24 Pat Name: SIDNEY KWON [facility] [employer] Photographer: SHANA : 1950 Requested By: Vamshi Ahn Order Number: [id number] Reading MD: Vamshi Ahn Measurements Intervals Anza Rate: 65 P: 25 CT: 187 QRS: -88 QRSD: 165 T: 59 QT: 496 QTc: 519 Interpretive Statements SINUS RHYTHM INTRAVENTRICULAR CONDUCTION DELAY No previous ECG available for comparison /[id number]/S0/[id number]
--- NOTE | 2025-04-24 07:56 | ECHO_ITS ---
Patient Info Name: Kraig Saul Age: 75 years : 1950 Gender: Male Ht: 173 cm Wt: 77 kg BSA: 1.93 m2 BP: 128 / 68 mmHg HR: 71 bpm Exam Date: 04/24/2025 1:04 PM Admit Date: 04/23/2025 Site: [facility] Room Number: [id number] Patient Status: I Technical Quality: Poor Exam Type: CA echo doppler complete Reason for Poor Study: poor echocardiographic windows [employer] Teacher: Viviana Jeffrey Ordering Physician: Vamshi Ahn Study Info Indications A Fib - Primary Location: S2NX Left Ventricular Outflow Tract Name Value Normal LVOT 2D LVOT Diameter 1.8 cm LVOT Doppler LVOT Peak Velocity 121 cm/s LVOT Mean Gradient 3 mmHg LVOT VTI 21 cm LVOT VTI/AV VTI Ratio 0.9 LVOT Stroke Volume 52 ml Mitral Valve Name Value Normal MV Doppler MV Decel [place] 315 cm/s2 MV PHT 54 ms MV Area (PHT) 4.1 cm2 4.0-5.0 MV Diastolic Function MV E Peak Velocity 59 cm/s MV A Peak Velocity 56 cm/s MV E/A 1.0 MV Annular TDI MV Septal e' Velocity 6.7 cm/s MV E/e' (Septal) 8.7 MV Lateral e' Velocity 5.4 cm/s MV E/e' (Lateral) 10.8 MV e' Average 6.09 cm/s MV E/e' (Average) 9.7 Tricuspid Valve Name Value Normal Estimated PAP/RSVP RA Pressure 3 mmHg <=5 TV Annular TDI TV Lateral Hannah s' Velocity 9.2 cm/s >=9.5 Aortic Valve Name Value Normal AV Doppler AV Peak Velocity 142 cm/s AV Mean Gradient 4 mmHg AV VTI 22 cm AV Area (Cont Eq VTI) 2.4 cm2 >=3.0 AV Area (Cont Eq Enoch) 2.2 cm2 AV DI (Enoch) 0.85 AV Regurgitation 2D LVOT Area 2.5 cm2 AV Regurgitation Doppler AR Decel [place] 155 cm/s2 AR PHT 438 ms Ventricles Name Value Normal LV Dimensions 2D/MM LVOT Diameter 1.8 cm LV Fractional Shortening/Ejection Fraction 2D/MM LV Diastolic Volume (4C MOD) 54 ml LV EF (4C MOD) 56 % LV Diastolic Volume (2C MOD) 47 ml LV EF (2C MOD) 55 % LV Diastolic Volume (BP MOD) 52 ml 62-150 LV Diastolic Volume Index (BP MOD) 27 ml/m2 34-74 LV Systolic Volume (BP MOD) 22 ml 21-61 LV Systolic Volume Index (BP MOD) 12 ml/m2 11-31 LV EF (BP MOD) 57 % 52-72 LV Diastolic Length (4C) 5.6 cm LV Systolic Length (4C) 5.9 cm LV Stroke Volume (4C MOD) 30 ml RV Dimensions 2D/MM TV Lateral Hannah s' Velocity 9.2 cm/s >=9.5 Atria Name Value Normal LA Dimensions LA Volume (4C A-L) 22 ml LA Volume (BP A-L) 34 ml Left Ventricle Left ventricular chamber dimension is decreased. Left ventricular systolic function is normal with visually estimated ejection fraction of 50-55%. There is normal geometry noted in the left ventricle. Left ventricular segmental wall motion is normal. There is normal diastolic function in the left ventricle. Right Ventricle Right ventricular chamber dimension is normal. Right ventricular systolic function is reduced. Left Atrium Left atrial chamber dimension is normal. Right Atrium Right atrial chamber dimension is normal. Aortic Valve The aortic valve is trileaflet. There is no aortic valve sclerosis. There is no aortic valve stenosis with a peak velocity of 142 cm/s, mean gradient of 4 mmHg, and aortic valve area of 2.4 cm2. There is mild aortic valve regurgitation. Pulmonic Valve The pulmonic valve is normal. There is no pulmonic valve stenosis. There is no pulmonic regurgitation. Mitral Valve The mitral valve has normal leaflets. There is no mitral valve stenosis. There is trace mitral valve regurgitation. Tricuspid Valve The tricuspid valve leaflets are normal. There is no tricuspid valve stenosis. There is trace tricuspid valve regurgitation. Unable to estimate pulmonary artery systolic pressure due to inadequate tricuspid regurgitant envelope. Pericardium/Pleural The pericardium appears normal. There is trivial pericardial effusion with no tamponade. No pleural effusion visualized. Inferior Vena Cava Normal inferior vena cava with >50% collapse upon inspiration consistent with normal right atrial pressure, 3 mmHg. Aorta The aortic measurements are indexed to age and body surface area. The aortic root at the sinus of Valsalva is not well visualized. The prox ascending aorta is not well visualized. Summary 1. Normal Left ventricle size and systolic function is normal. Estimated ejection fraction is 50-55%. 2. The right ventricle not well visualized but function appears normal. 3. There is mild aortic valve regurgitation. Mild AV sclerosis without stenosis. 4. There is trace mitral valve regurgitation. Mild MAC. 5. There is trace tricuspid valve regurgitation. Report Signatures Finalized by Jakob Milian on 04/25/2025 12:18 PM
[2025-04-24 08:34] LABS: Cardiac Risk Estimate 3.4 RATIO (4.0-6.7); Cholesterol 124 mg/dL (132-200); Free T4 (Free Thyroxine) 1.73 ng/dL (0.89-1.76); HDL Cholesterol 36 mg/dL (40-60); LDL Cholesterol,Calculated 74 mg/dL (0-130); Thyroid Stimulating Hormone 3.16 uIU/mL (0.55-4.78); Triglycerides 71 mg/dL (30-150)
[2025-04-24] MEDS: THIAMINE INJ 100 MG/ML VIAL 2 ML IVP (08:36)
[2025-04-24] MEDS: Magnesium Sulfate 2 GM Ivpb 2 GM/50 ML BAG IV (08:37)
[2025-04-24] MEDS: FOLIC ACID 1 MG TABLET PO (08:37)
[2025-04-24] MEDS: HEPARIN SOD INJ 5000 UNIT/ML VIAL SC (08:38)
--- NOTE | 2025-04-24 08:44 | PC.SS ---
Follow up note: On Amidodarone drip. On IV antibiotic. ECHO pending.
[2025-04-24 09:35] LABS: Iron 13 mcg/dL (65-175); Percent Iron Saturation 4 % (20-55); Total Iron Binding Capacity 271 mcg/dL (250-425); Unsaturated Iron Binding 258 (225-295)
[2025-04-24 09:50] LABS: Folate 21.18 ng/mL (>5.38); Vitamin B12 564 pg/mL (211-911)
[2025-04-24 10:27] LABS: Path Review Blood Smear Sent to Pathologist
[2025-04-24 12:40] LABS: Partial Thromboplastin Time 31.0 Seconds (22.0-36.0)
--- NOTE | 2025-04-24 12:56 | PD.RESCONSUL ---
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 The patient has completed radiation therapy under the care of Dr. Vasquez. He also has a history of atrial fibrillation hypertension, diabetes, hyperlipidemia, hypothyroidism, BPH, and dementia. The patient presents to the emergency department for evaluation of an abnormal heart rate. The patient is alert and oriented only to person and birthday and is a poor historian, with baseline confusion and dementia. He denies chest pain, palpitations, shortness of breath, dizziness, paroxysmal nocturnal dyspnea , or other associated symptoms. [facility] staff reported that the patient had complained of feeling short of breath and desaturated to 88%. He was placed on oxygen, and EMS was called. On EMS arrival, the patient was found to be in ventricular tachycardia, though he denied any associated symptoms such as chest pain or shortness of breath. The patient was recently admitted to [facility] for A-fib RVR, NSTEMI and SITA. Additional history is unavailable at this time. Recent Imaging: Chest CT (03/26/2025): Mild aneurysmal dilatation of the ascending thoracic aorta. Left lateral para-aortic lymphadenopathy has improved compared to the prior scan (August 2024). Notably, the left common iliac node measures 23 mm (compared to 11 mm in August 2024) and additional external iliac lymph nodes, with the largest measuring 25 mm. Lymph eden mass in the right groin measures 4 cm (down from 7 cm in August 2024). ED Course: Vitals: BP 112/77 mmHg, HR 150 bpm, RR 20, Temp 98.5?F, O2 saturation 98% on room air. Labs:WBC 10.9 x 10?/?L,Hemoglobin 10.6 g/dL, Coagulation profile within normal limits.BUN 22 mg/dL, Creatinine 1.8 mg/dL (Creatinine Clearance 33.3 mL/min),AST 38 U/L, ALP 125 U/L,Troponin: Negative Urinalysis: Turbid, leukocyte esterase (LE) +, 29 RBCs, 20 WBCs, calcium oxalate crystals. Imaging: Head CT: No acute hemorrhage, mass effect, or midline shift.,Chest X-ray: Pneumonia in the right base. EKG: Vtach vs Aflutter with 2;2;1 block, underlying RBBB. HR 146 bpm, QTc 413 ms. Treatment in ED:1 L Normal Saline bolus. Ziprasidone 10 mg for agitation..Amiodarone drip started. Lorazepam 1 mg x2 for anxiety/agitation. Amiodarone 200 mg IV bolus. Past medical history as above Home Medications:Amiodarone 200 mg daily.Aspirin 81 mg daily.Losartan 50 mg daily.Metoprolol tartrate 25 mg twice daily.Quetiapine 50 mg twice daily.Tamsulosin 0.4 mg daily.Tramadol (unspecified dosing).Xarelto 20 mg daily. Past Surgical History:Patient is unable to provide any surgical history at this time. Allergies: NKDA. Family History:The patient denies any history of heart disease in the family. Social History:The patient lives with his and has a history of alcohol use, consuming 12-24 beers daily. He denies smoking or recreational drug use. cc:: cc: Jericho Hall MD Review of Systems Review of Systems Systems Reviewed: All systems reviewed, normal except as documented Exam Vital Signs Temp Pulse Resp BP Pulse Ox O2 Del Method 96.9 F 68 19 128/68 97 Room Air 04/24/25 08:00 04/24/25 08:00 04/24/25 08:00 04/24/25 08:00 04/24/25 08:00 04/24/25 08:00 Narrative Exam GENERAL: no acute distress, AAO x2, well nourished. HEENT: Head AT/ NC. Mucous membranes moist. PERRL. NECK: Supple, no lymphadenopathy, no carotid bruits. CARDIOVASCULAR: RRR. Normal S1/S2, No m/r/g. No pitting edema of bilateral LEs. RESPIRATORY: CTAB. No wheezing, rhonchi, crackles. GASTROINTESTINAL: Abdomen soft, non tender no palpable masses. Bowel sounds present in all 4 quadrants. MUSCULOSKELETAL:? No cyanosis or edema, no visible joint swelling. NEUROLOGICAL: CN II-XII grossly intact. No focal deficits. Sensation intact, symmetric. PSYCHIATRIC: Awake and alert, not agitated, normal mood and affect. INTEGUMENTARY: No obvious rashes, no jaundice, normal turgor. Results Labs 04/25/25 03:17 04/25/25 03:17 Labs: Short CBC 04/23/25 04/24/25 Range/Units 17:25 04:20 WBC 10.9 H 7.9 (3.8-10.6) Thou/mm3 Hgb 10.6 L 9.2 L (13.5-16.0) g/dL Hct 33.0 L 28.3 L (41.0-53.0) % Plt Count 259 197 D (140-440) Thou/mm3 BMP 04/23/25 04/24/25 17:25 04:20 Sodium 136 137 Potassium 4.4 4.3 Chloride 100 101 Carbon Dioxide 25.5 24.6 BUN 22 23 Creatinine 1.8 H 1.6 H Glucose 133 H 118 H Calcium 9.2 8.5 Cardiac Enzymes 04/23/25 Range/Units 17:25 Troponin I < 0.020 (0.0-0.045) ng/mL Liver Function 04/23/25 04/24/25 Range/Units 17:25 04:20 Total Bilirubin 0.7 0.4 (0.3-1.2) mg/dL AST 38 H 35 H (0-34) U/L ALT 30 25 (10-49) U/L Alkaline Phosphatase 125 H 104 D (46-116) U/L Albumin 4.4 3.7 D (3.4-4.8) gm/dL Urine 04/23/25 Range/Units 16:54 Urine Color Yellow (Lt Yel-Yel) Urine Clarity Turbid A (Clear/Hazy) Urine pH 7.0 (5.0-7.0) Ur Specific Pierce 1.018 (1.001-1.035) Urine Protein Trace (Neg - Trace) Urine Glucose (UA) Negative (Negative) Quality Measures Quality Measures none Advance care planning discussed with:: patient Medications Home Medications and Allergies Home Medications ?Medication ?Instructions ?Recorded ?Confirmed ?Type amiodarone 200 mg tablet 200 mg PO QDAY 10/04/22 04/24/25 History rivaroxaban 20 mg tablet (Xarelto) 20 mg PO QDAY 10/04/22 04/24/25 History tamsulosin 0.4 mg capsule 0.4 mg PO QDAY 10/04/22 04/24/25 History aspirin 81 mg tablet,delayed 81 mg PO QDAY 12/02/24 04/24/25 History release docusate sodium 100 mg capsule 100 mg PO QDAY 12/02/24 04/24/25 History furosemide 20 mg tablet 20 mg PO QDAY 12/02/24 04/24/25 History levothyroxine 50 mcg tablet 50 mcg PO QDAY 12/02/24 04/24/25 History (Synthroid) losartan 50 mg tablet 50 mg PO QDAY 12/02/24 04/24/25 History tramadol 50 mg tablet 50 mg PO Q8H 12/02/24 04/24/25 History magnesium hydroxide 400 mg/5 mL 5 ml PO QDAY PRN constipation 04/24/25 04/24/25 History oral suspension (Gentle Laxative (magnesium hydroxide)) metoprolol tartrate 50 mg tablet 25 mg PO BID 04/24/25 04/24/25 History (Lopressor) montelukast 10 mg tablet 10 mg PO QDAY 04/24/25 04/24/25 History quetiapine 25 mg tablet 50 mg PO BID 04/24/25 04/24/25 History Allergies Allergy/AdvReac Type Severity Reaction Status Date / Time No Known Allergies Allergy Verified 12/05/24 09:01 Visit Medications Acetaminophen (Acetaminophen 325 Mg Tablet) 650 mg PO Q6H PRN PRN Reason: Fever >101.5 Stop: 05/23/25 21:23 Aspirin (Aspirin Ec 81 Mg Tabec) 81 mg PO QDAY SHONA Stop: 05/24/25 12:59 Diazepam (Diazepam Inj 5 Mg/Ml Vial 2 Ml) 10 mg IVP X1 PRN PRN Reason: Breakthrough Agitation Folic Acid (Folic Acid 1 Mg Tablet) 1 mg PO QDAY SHONA Stop: 05/24/25 08:59 Last Admin: 04/24/25 08:37 Dose: 1 mg Amiodarone HCl/Dextrose (Nexterone Ivpb) 360 mg in 200 mls @ 16.667 mls/hr IV .Q12H SHONA Stop: 04/24/25 23:02 Last Admin: 04/24/25 01:16 Dose: 16.667 mls/hr Ceftriaxone Sodium/Dextrose (Rocephin/D5w 1gm Iv Premix) 1 gm in 50 mls @ 100 mls/hr IV QDAY SHONA Stop: 04/30/25 21:57 Last Admin: 04/24/25 08:36 Dose: 100 mls/hr Heparin Sodium/Dextrose (Heparin In D5w Ivpb) 25,000 unit in 250 mls @ 9.24 mls/hr IV .Q24H SHONA; Protocol Stop: 05/08/25 12:14 Amiodarone HCl/Dextrose (Nexterone Ivpb) 360 mg in 200 mls @ 16.667 mls/hr IV .Q12H SHONA Stop: 04/25/25 10:59 Levothyroxine Sodium (Levothyroxine Sodium 25 Mcg Tablet) 50 mcg PO ACBR SHONA Stop: 05/24/25 11:44 Lorazepam (Lorazepam 0.5 Mg Tablet) 0.5 mg PO Q4HR PRN PRN Reason: CIWA Score 2-6 Stop: 04/28/25 21:23 Lorazepam (Lorazepam 0.5 Mg Tablet) 1 mg PO Q4HR PRN PRN Reason: CIWA SCORE 7-11 Stop: 04/28/25 21:29 Lorazepam (Lorazepam 0.5 Mg Tablet) 2 mg PO Q4HR PRN PRN Reason: CIWA SCORE 12-15 Stop: 04/28/25 21:29 Montelukast Sodium (Montelukast Sodium 10 Mg Tablet) 10 mg PO QPM SHONA Stop: 05/25/25 20:59 Pantoprazole Sodium (Pantoprazole Inj 40 Mg Vial) 40 mg IVP QDAY SHONA Stop: 05/24/25 08:59 Last Admin: 04/24/25 08:36 Dose: 40 mg Quetiapine Fumarate (Quetiapine Fumarate 25 Mg Tablet) 50 mg PO BID SHONA Stop: 05/24/25 11:44 Tamsulosin HCl (Tamsulosin Hcl 0.4 Mg Capsule) 0.4 mg PO QDAY SHONA Stop: 05/24/25 11:59 Thiamine HCl (Thiamine Inj 100 Mg/Ml Vial 2 Ml) 100 mg IVP QDAY SHONA Stop: 05/24/25 08:59 Last Admin: 04/24/25 08:36 Dose: 100 mg Discontinued Medications Amiodarone HCl (Amiodarone Hcl 200 Mg Tablet) 200 mg PO X1 ONE Stop: 04/23/25 14:23 Last Admin: 04/23/25 15:11 Dose: 200 mg Aspirin (Aspirin Ec 81 Mg Tabec) 81 mg PO QDAY SHONA Stop: 05/24/25 12:14 Heparin Sodium (Porcine) (Heparin Sod Inj 5000 Unit/Ml Vial) 5,000 unit SC Q12HR SHONA Stop: 05/08/25 08:59 Last Admin: 04/24/25 08:38 Dose: 5,000 unit Heparin Sodium (Porcine) (Heparin Sod Inj 5000 Unit/Ml Vial) 4,000 unit IV X1 ONE; Protocol Stop: 04/24/25 12:16 Sodium Chloride (Ns) 1,000 mls @ 50 mls/hr IV .Q20H ONE Stop: 04/24/25 09:39 Last Admin: 04/23/25 15:13 Dose: Not Given Amiodarone HCl 200 mg/ (Dextrose) 104 mls @ 600 mls/hr IV X1 ONE Stop: 04/23/25 13:53 Last Admin: 04/23/25 15:14 Dose: Not Given Amiodarone HCl/Dextrose (Nexterone Ivpb) 150 mg in 100 mls @ 600 mls/hr IV .Q10M ONE Stop: 04/23/25 17:10 Last Infusion: 04/23/25 17:56 Dose: Infused Amiodarone HCl/Dextrose (Nexterone Ivpb) 360 mg in 200 mls @ 33.333 mls/hr IV .Q6H ONE Stop: 04/23/25 23:02 Last Infusion: 04/24/25 01:19 Dose: Infused Sodium Chloride (Ns) 1,000 mls @ 999 mls/hr IV .Q1H1M ONE Stop: 04/23/25 22:33 Last Infusion: 04/23/25 22:51 Dose: Infused Magnesium Sulfate (Magnesium Sulfate Ivpb) 2 gm in 50 mls @ 25 mls/hr IV X1 ONE Stop: 04/24/25 09:54 Last Admin: 04/24/25 08:37 Dose: 25 mls/hr Lorazepam (Lorazepam 0.5 Mg Tablet) 1 mg PO X1 ONE Stop: 04/23/25 14:23 Last Admin: 04/23/25 15:11 Dose: 1 mg Lorazepam (Lorazepam 2 Mg/Ml Vial) 1 mg IVP X1 ONE Stop: 04/23/25 17:06 Last Admin: 04/23/25 17:42 Dose: 1 mg Rivaroxaban (Rivaroxaban 10 Mg Tablet) 20 mg PO QDAY SHONA Stop: 05/24/25 12:14 Sodium Chloride (Sodium Chloride Rt 10% 15 Ml Nebu) 5 ml INH X1 ONE Stop: 04/24/25 05:34 Ziprasidone (Ziprasidone Inj 20 Mg/Ml Vial (Non-Formulary)) 10 mg IM X1 ONE Stop: 04/23/25 17:19 Last Admin: 04/23/25 18:08 Dose: 10 mg Assessment & Plan Plan A 74-year-old male with a significant past medical history of 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 The patient has completed radiation therapy under the care of Dr. Vasquez. He also has a history of atrial fibrillation hypertension, diabetes, hyperlipidemia, hypothyroidism, BPH, and dementia was admitted for V. tach versus a flutter with 2-1 block treatment and management. 1 A-flutter with a 2:1 block with underlying RBBB(as a DDx) 2. Paroxysmal atrial fibrillation 3. Acute kidney injury 4. Hypertension 5. Hyperlipidemia 6. Diabetes mellitus type 2 7. Metastatic squamous cell carcinoma stage IV 8. BPH 9: Possible UTI, 10 Iron deficiency anemia The patient presents with abnormal heart rate and upon EMS arrival was found to be ventricular tachycardia. However considering the patient history of A-fib, a flutter with 2-1 block and underlying right bundle branch block is more likely as noted on the rhythm strip Patient denies any chest pain, shortness of breath, palpitation which is atypical for V. tach, vitals were appeared to be stable Troponin x 1 was negative, Home medication is metoprolol, amiodarone, Xarelto Recommendations Given the hx there is a likelihood of a flutter with 2-1 block and underlying RBBB, patient is currently rate controlled, Continue amiodarone drip for rhythm stabilization, patient responded well, we will consider adding metoprolol as an additionall antiarrhythmic therapy based on response Continue conveyor monitor, repeat EKG Will recommend to repeat the troponin, BNP Continue aspirin, Start heparin drip, hold Xarelto Oxygen support Strict control of risk factors such as hypertension, hyperlipidemia, diabetes Keep electrolytes within normal limits, magnesium above 2 and potassium above 4 We will obtain echo to evaluate LVEF, structural abnormalities, RV function. We will recommend to obtain the records, cardiology notes from [facility] Given patient history of recent hospitalization for non-STEMI, arrhythmia event, coronary artery disease is a strong differential diagnosis. Patient will need further evaluation for coronary artery disease with echo which will be obtained here to assess for any regional wall motion abnormalities or evidence of ischemia. And if there is a concern for significant coronary artery disease and evidence of ischemia further evaluation with [facility] will be discussed after. The rest of the chronic condition to be managed by primary team. Patient care was discussed with attending physician Dr. Rukhsana Lucas MD PGY-3 I have carefully reviewed this document. Due to imperfections in the voice software, there could be grammatical errors including phonetic/typographic errors. This in no way compromises the medical care the patient is receiving Attending Provider Attestation/Addendum I have personally seen and examined the patient separately on the above date of service and discussed the plan of care with the resident. I reviewed the resident Dr. Beth Rivera consultation progress note and agree with the resident findings and plan in the note above and have also edited the documentation to reflect my findings and plan. A 75-year-old male with a past medical history of metastatic squamous cell carcinoma stage IV of right inguinal region metastasis to bone and lung s/p radiation therapy and follows Dr. Vasquez, paroxysmal atrial fibrillation, mild CAD by cardiac cath in 2020, dilated dilated ascending thoracic aorta at 4.5 cm, essential hypertension, type 2 diabetes mellitus, hyperlipidemia, SITA on CKD, hydronephrosis with ureteral stent in 03/2025 at [facility], BPH, mild cognitive deficiency versus dementia, significant lymphadenopathy including para-aortic as well as, iliac and external iliac lymph nodes, history of alcohol abuse for many years 12-24 beers daily presented to the emergency department for further evaluation of abnormal and elevated heart rate. Initial EKG in the emergency department showed, wide-complex tachycardia with regular rhythm and mostly atrial flutter with 2 is to [address]-T changes., Mild elevated WBC at 11, BP 112/77 mmHg, rest of vital stable, mild SITA with creatinine of 1.8. ALP of 125, troponin was negative.. UA was positive with leuk esterase as well as WBC. CT head negative. Cardiology was consulted for further evaluation of wide-complex tachycardia with possible VT versus atrial fibrillation. Reviewed the EKG and patient mostly has atrial flutter with 2 is to 1 block and underlying right bundle branch block giving the appearance of wide-complex tachycardia. Unlikely VT given the heart rate and the presentation with hemodynamic stability and his history of previous paroxysmal atrial fibrillation. Recent admission to [facility] when patient had hydronephrosis status post ureteral stent and developed atrial fibrillation with RVR during this admission and was started on amiodarone at that point of time. Acute kidney injury with electrolyte abnormalities is probably provoking the atrial fibrillation/flutter with RVR. Started on amiodarone drip and will completed as per protocol. Will need to be on amiodarone 200 mg twice daily as the patient needs complete loading. After a month patient should be converted to amiodarone 200 mg once daily. Keep potassium greater than 4 and magnesium greater than 2.2. Continue telemetry. Heparin drip for anticoagulation and eventually can be changed to Eliquis 5 mg twice daily rather than Xarelto. Echo ordered and showed normal LV function with the same as before [facility]. Patient does have a history of dilated ascending aorta at 4.5 cm. He does have a kaiako kohanga reo Dr. Patel who he follows regularly. Patient did have cardiac catheterization done in 2020 which showed only mild CAD around 20% stenosis in the distal RCA and some mild diffuse disease. He will need further ischemic workup given the nonspecific ST-T changes as well as some chest pain which can be completed as outpatient as troponins have been negative. Management of rest of the medical conditions as per primary team and other consultants. Thank you for the consult and allowing me to participate in the care of the patient. Cardiology will continue to follow. Jakob Milian M.D. Interventional Cardiology
[2025-04-24] MEDS: LEVOTHYROXINE SODIUM 25 MCG TABLET 50 MCG PO (13:03)
[2025-04-24] MEDS: ASPIRIN EC 81 MG TABEC PO (13:04)
[2025-04-24] MEDS: TAMSULOSIN HCL 0.4 MG CAPSULE PO (13:04)
[2025-04-24] MEDS: HEPARIN SOD INJ 5000 UNIT/ML VIAL 4000 UNIT IV (13:07)
[2025-04-24] MEDS: Heparin/D5w 25K 250 ML Ivpb 25,000 UNIT/250 ML BAG 9.24 UNIT IV (13:08)
--- NOTE | 2025-04-24 13:08 | PD.RESPRO ---
Documentation for date of: 04/24/25 Subjective Subjective Interval history: 75-year-old male admitted overnight for episode of V. tach, sinus rhythm noted on EKG obtained today. Patient denies any symptoms, on amiodarone drip, cardiology was consulted Will start patient on heparin drip due to high CHADVasc, will hold Xarelto will continue aspirin Pending echocardiogram Home levothyroxine, tamsulosin, quetiapine resumed Exam Vital Signs Temp Pulse Resp BP Pulse Ox O2 Del Method 96.9 F 68 19 128/68 97 Room Air 04/24/25 08:00 04/24/25 08:00 04/24/25 08:00 04/24/25 08:00 04/24/25 08:00 04/24/25 08:00 Narrative Exam GENERAL: no acute distress, AAO x2, well nourished. HEENT: Head AT/ NC. Mucous membranes moist. PERRL. NECK: Supple, no lymphadenopathy, no carotid bruits. CARDIOVASCULAR: RRR. Normal S1/S2, No m/r/g. No pitting edema of bilateral LEs. RESPIRATORY: CTAB. No wheezing, rhonchi, crackles. GASTROINTESTINAL: Abdomen soft, non tender no palpable masses. Bowel sounds present in all 4 quadrants. MUSCULOSKELETAL:? No cyanosis or edema, no visible joint swelling. NEUROLOGICAL: CN II-XII grossly intact. No focal deficits. Sensation intact, symmetric. PSYCHIATRIC: Awake and alert, not agitated, normal mood and affect. INTEGUMENTARY: No obvious rashes, no jaundice, normal turgor. Objective Labs 04/25/25 03:17 04/25/25 03:17 Labs: Laboratory Results - last 24 hr 04/23/25 04/23/25 04/23/25 00:15 16:54 17:25 WBC 10.9 H RBC 3.98 L Hgb 10.6 L Hct 33.0 L MCV 83 MCH 26.6 MCHC 32.1 RDW Std Deviation 51.3 H Plt Count 259 Neut % (Auto) 87 H Lymph % (Auto) 6 L Roberts % (Auto) 6 Eos % (Auto) 1 Baso % (Auto) 1 Neut # (Auto) 9.4 H Lymph # (Auto) 0.6 L Roberts # (Auto) 0.6 Eos # (Auto) 0.1 Baso # (Auto) 0.1 Immature Gran # (Auto) 0.05 H Absolute Nucleated RBC 0.00 Immature Gran % 1 H Nucleated RBC % 0 Smear Path Review PT 10.8 INR 1.0 APTT 29.6 Sodium 136 Potassium 4.4 Chloride 100 Carbon Dioxide 25.5 Anion Gap 11 BUN 22 Creatinine 1.8 H Estim Creat Clear Calc 33.3 L eGFR 38 L BUN/Creatinine Ratio 12 [address] Glu mg/dL Hemoglobin A1c Calculated Osmolality 277 Calcium 9.2 Corrected Calcium 9.2 Phosphorus Magnesium Iron TIBC Iron Saturation Unsat Iron Binding Total Bilirubin 0.7 AST 38 H ALT 30 Alkaline Phosphatase 125 H Troponin I < 0.020 Total Protein 8.3 H Albumin 4.4 Globulin 3.9 H Albumin/Globulin Ratio 1.1 L Triglycerides Cholesterol LDL Cholesterol, Calc HDL Cholesterol Cholesterol/HDL Ratio Vitamin B12 Folate Procalcitonin 0.13 TSH Free T4 Ur Collection Type Clean Catch Urine Color Yellow Urine Clarity Turbid A Urine pH 7.0 Ur Specific [place] 1.018 Urine Protein Trace Urine Glucose (UA) Negative Urine Ketones Negative Urine Blood Trace Urine Nitrite Negative Urine Bilirubin Negative Urine Urobilinogen (Auto) Negative Ur Leukocyte Esterase Positive Urine RBC 29 H Urine WBC 20 H Ur Squamous Epith Cells < 1 Calcium Oxalate Crystal 2+ A Urine Bacteria None Urine Alcohol Negative SARS-CoV-2 Ag (Rapid) 04/23/25 04/24/25 04/24/25 22:24 04:20 04:40 WBC 7.9 RBC 3.41 L Hgb 9.2 L Hct 28.3 L MCV 83 MCH 27.0 MCHC 32.5 RDW Std Deviation 50.9 H Plt Count 197 D Neut % (Auto) 82 H Lymph % (Auto) 7 L Roberts % (Auto) 6 Eos % (Auto) 4 Baso % (Auto) 1 Neut # (Auto) 6.5 Lymph # (Auto) 0.6 L Roberts # (Auto) 0.5 Eos # (Auto) 0.3 Baso # (Auto) 0.1 Immature Gran # (Auto) 0.03 H Absolute Nucleated RBC 0.02 H Immature Gran % 0 Nucleated RBC % 0 Smear Path Review Sent to Pathologist PT INR APTT Sodium 137 Potassium 4.3 Chloride 101 Carbon Dioxide 24.6 Anion Gap 11 BUN 23 Creatinine 1.6 H Estim Creat Clear Calc 37.4 L eGFR 44 L BUN/Creatinine Ratio 14 [address]ucose [address] Glu mg/dL 131 Hemoglobin A1c 6.2 H Calculated Osmolality 278 Calcium 8.5 Corrected Calcium 8.7 Phosphorus 3.4 Magnesium 2.0 Iron TIBC Iron Saturation Unsat Iron Binding Total Bilirubin 0.4 AST 35 H ALT 25 Alkaline Phosphatase 104 D Troponin I Total Protein 6.8 Albumin 3.7 D Globulin 3.1 Albumin/Globulin Ratio 1.2 Triglycerides 71 Cholesterol 124 L LDL Cholesterol, Calc 74 HDL Cholesterol 36 L Cholesterol/HDL Ratio 3.4 L Vitamin B12 Folate Procalcitonin TSH 3.16 Free T4 1.73 Ur Collection Type Urine Color Urine Clarity Urine pH Ur Specific [place] Urine Protein Urine Glucose (UA) Urine Ketones Urine Blood Urine Nitrite Urine Bilirubin Urine Urobilinogen (Auto) Ur Leukocyte Esterase Urine RBC Urine WBC Ur Squamous Epith Cells Calcium Oxalate Crystal Urine Bacteria Urine Alcohol SARS-CoV-2 Ag (Rapid) Negative 04/24/25 08:47 WBC RBC Hgb Hct MCV MCH MCHC RDW Std Deviation Plt Count Neut % (Auto) Lymph % (Auto) Roberts % (Auto) Eos % (Auto) Baso % (Auto) Neut # (Auto) Lymph # (Auto) Roberts # (Auto) Eos # (Auto) Baso # (Auto) Immature Gran # (Auto) Absolute Nucleated RBC Immature Gran % Nucleated RBC % Smear Path Review Cancelled PT INR APTT 31.0 Sodium Potassium Chloride Carbon Dioxide Anion Gap BUN Creatinine Estim Creat Clear Calc eGFR BUN/Creatinine Ratio Glucose Estimated Ave Glu mg/dL Hemoglobin A1c Calculated Osmolality Calcium Corrected Calcium Phosphorus Magnesium Iron 13 L TIBC 271 Iron Saturation 4 L Unsat Iron Binding 258 Total Bilirubin AST ALT Alkaline Phosphatase Troponin I Total Protein Albumin Globulin Albumin/Globulin Ratio Triglycerides Cholesterol LDL Cholesterol, Calc HDL Cholesterol Cholesterol/HDL Ratio Vitamin B12 564 Folate 21.18 Procalcitonin TSH Free T4 Ur Collection Type Urine Color Urine Clarity Urine pH Ur Specific [place] Urine Protein Urine Glucose (UA) Urine Ketones Urine Blood Urine Nitrite Urine Bilirubin Urine Urobilinogen (Auto) Ur Leukocyte Esterase Urine RBC Urine WBC Ur Squamous Epith Cells Calcium Oxalate Crystal Urine Bacteria Urine Alcohol SARS-CoV-2 Ag (Rapid) Quality Measures Quality Measures none Advance care planning discussed with:: patient Assessment & Plan Assessment Current Active Medications: Generic Name Dose Route Start Last Admin Trade Name Freq PRN Reason Stop Dose Admin Acetaminophen 650 mg 04/23/25 21:24 Acetaminophen 325 Mg Tablet PO 05/23/25 21:23 Q6H PRN Fever >101.5 Aspirin 81 mg 04/24/25 13:00 04/24/25 13:04 Aspirin Ec 81 Mg Tabec PO 05/24/25 12:59 81 mg QDAY SHONA Administration Diazepam 10 mg 04/23/25 21:24 Diazepam Inj 5 Mg/Ml Vial 2 Ml IVP X1 PRN Breakthrough Agitation Folic Acid 1 mg 04/24/25 09:00 04/24/25 08:37 Folic Acid 1 Mg Tablet PO 05/24/25 08:59 1 mg QDAY SHONA Administration Amiodarone HCl/Dextrose 360 mg in 200 mls @ 16.667 mls/hr 04/23/25 23:03 04/24/25 01:16 Nexterone Ivpb IV 04/24/25 23:02 16.667 mls/hr .Q12H SHONA Administration Ceftriaxone Sodium/Dextrose 1 gm in 50 mls @ 100 mls/hr 04/23/25 21:58 04/24/25 08:36 Rocephin/D5w 1gm Iv Premix IV 04/30/25 21:57 100 mls/hr QDAY SHONA Administration Heparin Sodium/Dextrose 25,000 unit in 250 mls @ 9.24 mls/hr 04/24/25 12:15 Heparin In D5w Ivpb IV 05/08/25 12:14 .Q24H SHONA Protocol 12 UNITS/KG/HR Amiodarone HCl/Dextrose 360 mg in 200 mls @ 16.667 mls/hr 04/24/25 23:00 Nexterone Ivpb IV 04/25/25 10:59 .Q12H SHONA Levothyroxine Sodium 50 mcg 04/24/25 11:45 04/24/25 13:03 Levothyroxine Sodium 25 Mcg Tablet PO 05/24/25 11:44 50 mcg ACBR SHONA Administration Lorazepam 0.5 mg 04/23/25 21:24 Lorazepam 0.5 Mg Tablet PO 04/28/25 21:23 Q4HR PRN CIWA Score 2-6 Lorazepam 1 mg 04/23/25 21:30 Lorazepam 0.5 Mg Tablet PO 04/28/25 21:29 Q4HR PRN CIWA SCORE 7-11 Lorazepam 2 mg 04/23/25 21:30 Lorazepam 0.5 Mg Tablet PO 04/28/25 21:29 Q4HR PRN CIWA SCORE 12-15 Montelukast Sodium 10 mg 04/25/25 21:00 Montelukast Sodium 10 Mg Tablet PO 05/25/25 20:59 QPM SHONA Pantoprazole Sodium 40 mg 04/24/25 09:00 04/24/25 08:36 Pantoprazole Inj 40 Mg Vial IVP 05/24/25 08:59 40 mg QDAY SHONA Administration Quetiapine Fumarate 50 mg 04/24/25 11:45 04/24/25 13:03 Quetiapine Fumarate 25 Mg Tablet PO 05/24/25 11:44 50 mg BID SHONA Administration Tamsulosin HCl 0.4 mg 04/24/25 12:00 04/24/25 13:04 Tamsulosin Hcl 0.4 Mg Capsule PO 05/24/25 11:59 0.4 mg QDAY SHONA Administration Thiamine HCl 100 mg 04/24/25 09:00 04/24/25 08:36 Thiamine Inj 100 Mg/Ml Vial 2 Ml IVP 05/24/25 08:59 100 mg QDAY SHONA Administration Plan 75 year old male with history of atrial fibrillation, hypertension, diabetes, hyperlipidemia, hypothyroidism, BPH, 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 #A fib with RVR, resolved #?V. tach episode, by history EKG (in ED chart) HR 146 QTC 413. Amiodarone drip started in ED HR resolved from 150 to 65. Patient in sinus rhythm today, going in and out of A-fib likely, possible V. 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 Has lung pulmonary metastases. Rales heard on physical exam. CXR pneumonia right base, could be volume overload. Plan: -No antibiotics at the moment - patient just completed augmentin at [facility] - Follow-up sputum culture #SITA Cr 1.6 Most likely secondary to volume depletion -suspicion of prerenal Plan: - Follow renal panel in a.m. - If creatinine is therapeutic we will consider renal ultrasound to rule out CKD #UTI reports dysuria. Suprapubic tenderness on physical exam. UA Turbid LE + 29 RBC 20 WBC +2 calcium oxalate. No stones seen on imaging. Please consider CTAP for best visualization or concern for stones is enhanced. Plan: -Ceftriaxone 1g IV QD - Follow-up urine culture #Alcohol dependence Patient drinks 12-24 beers/day has never had alcohol withdrawals. Plan: -CIWA -Folic acid -Thiamine #Hypertension Patient family unable to assist with medications Plan - Hold antihypertensive for now #Prediabetic Patient was noted to be pre-diabetic. A1c 6.2 Plan: -Diabetes education #Hyperlipidemia Patient family unable to assist with medications Plan - Lipid panel shows LDL 74, start atorvastatin 40 nightly #hx hypothyroidism Patient family unable to assist with medications Plan - Resume home levothyroxine #hx of BPH Patient family unable to assist with medications Plan - Resume home tamsulosin Health Maintenance: Code status: Full DVT prophylaxis: Heparin GTT GI prophylaxis: protonix Diet: carb consistent [place]: yes Lines: PIV Supplemental O2: NC Disposition: Tele bed afib with RVR Case discussed with Attending Physician Dr. Ernie Ahn MD Internal Medicine PGY-2 Disclaimer: This note was dictated by speech recognition. Minor errors in clothes marker may be present due to voice recognition software. Attending Provider Attestation/Addendum 75 mlae with SCC with liver, lung solomon involvement admitted for possible VT. HJe has afib on anticoagulation BP stable, Cardio consult requested, ? syncope. Treat UTI. Discussed with housestaff. Continue cardiac monitoring Check echocardiogram.
--- NOTE | 2025-04-24 13:20 | PD.ONCCONS ---
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 Has been receiving chemo with Dr. Mago Ndiaye and completed radiation therapy to the right groin November 2024. Patient was experiencing side effects and has been staying at [facility]. There was abnormal rhythm A-fib with rapid ventricular rate 146 and was referred to [facility] ER and now admitted. Was found to be in V. tach, but thought to be A flutter with 2-1 block and underlying right bundle branch block noted by supervisor cold rolling. Currently on amiodarone drip, and other antiarrhythmic therapy being considered. Most recent imaging studies 03/26/2025 showed improvement in the right groin and para-aortic but increase in size of left common iliac node. Patient now referred for oncological consultation. cc:: cc: Jericho Hall MD Past Medical History Past Medical History Comments PMH COMMENT: History of metastatic squamous SCCA received radiation undergoing chemo. Hypertension insulin dependent diabetes BPH hypothyroidism Meds Home Medications and Allergies Home Medications ?Medication ?Instructions ?Recorded ?Confirmed ?Type amiodarone 200 mg tablet 200 mg PO QDAY 10/04/22 04/24/25 History rivaroxaban 20 mg tablet (Xarelto) 20 mg PO QDAY 10/04/22 04/24/25 History tamsulosin 0.4 mg capsule 0.4 mg PO QDAY 10/04/22 04/24/25 History aspirin 81 mg tablet,delayed 81 mg PO QDAY 12/02/24 04/24/25 History release docusate sodium 100 mg capsule 100 mg PO QDAY 12/02/24 04/24/25 History furosemide 20 mg tablet 20 mg PO QDAY 12/02/24 04/24/25 History levothyroxine 50 mcg tablet 50 mcg PO QDAY 12/02/24 04/24/25 History (Synthroid) losartan 50 mg tablet 50 mg PO QDAY 12/02/24 04/24/25 History tramadol 50 mg tablet 50 mg PO Q8H 12/02/24 04/24/25 History magnesium hydroxide 400 mg/5 mL 5 ml PO QDAY PRN constipation 04/24/25 04/24/25 History oral suspension (Gentle Laxative (magnesium hydroxide)) metoprolol tartrate 50 mg tablet 25 mg PO BID 04/24/25 04/24/25 History (Lopressor) montelukast 10 mg tablet 10 mg PO QDAY 04/24/25 04/24/25 History quetiapine 25 mg tablet 50 mg PO BID 04/24/25 04/24/25 History Allergies Allergy/AdvReac Type Severity Reaction Status Date / Time No Known Allergies Allergy Verified 12/05/24 09:01 Exam Vital Signs Temp Pulse Resp BP Pulse Ox O2 Del Method 96.9 F 68 19 128/68 97 Room Air 04/24/25 08:00 04/24/25 08:00 04/24/25 08:00 04/24/25 08:00 04/24/25 08:00 04/24/25 08:00 Narrative Exam Appearing comfortable in no acute distress Results Labs 04/24/25 04:20 04/24/25 04:20 Labs: Short CBC 04/23/25 04/24/25 Range/Units 17:25 04:20 WBC 10.9 H 7.9 (3.8-10.6) Thou/mm3 Hgb 10.6 L 9.2 L (13.5-16.0) g/dL Hct 33.0 L 28.3 L (41.0-53.0) % Plt Count 259 197 D (140-440) Thou/mm3 BMP 04/23/25 04/24/25 17:25 04:20 Sodium 136 137 Potassium 4.4 4.3 Chloride 100 101 Carbon Dioxide 25.5 24.6 BUN 22 23 Creatinine 1.8 H 1.6 H Glucose 133 H 118 H Calcium 9.2 8.5 Cardiac Enzymes 04/23/25 Range/Units 17:25 Troponin I < 0.020 (0.0-0.045) ng/mL Liver Function 04/23/25 04/24/25 Range/Units 17:25 04:20 Total Bilirubin 0.7 0.4 (0.3-1.2) mg/dL AST 38 H 35 H (0-34) U/L ALT 30 25 (10-49) U/L Alkaline Phosphatase 125 H 104 D (46-116) U/L Albumin 4.4 3.7 D (3.4-4.8) gm/dL Urine 04/23/25 Range/Units 16:54 Urine Color Yellow (Lt Yel-Yel) Urine Clarity Turbid A (Clear/Hazy) Urine pH 7.0 (5.0-7.0) Ur Specific [place] 1.018 (1.001-1.035) Urine Protein Trace (Neg - Trace) Urine Glucose (UA) Negative (Negative) Assessment and Plan Additional Assessment & Plan Additional Plan: 1. History of stage IV metastatic squamous cell CA. completed palliative radiation therapy to the right groin earlier this summer. Still undergoing chemo with Dr. Mercedes in [place]. Last treatment 3 weeks ago. 2. Admitted with cardiac arrhythmia A-fib with rapid ventricular rate, meds being adjusted by the cardiology team. 3. Hypertension diabetes SITA problems being addressed. 4. Spoke with daughter today about follow-up upon discharge. Thank you for allowing me to evaluate this patient.
--- NOTE | 2025-04-24 13:54 | PC.SS ---
Pt is from [facility]. SS spoke to Veena from [facility] who explained they recently received pt on Sunday from [facility]. Pt had PT evaluation at [facility]. Per Veena, pt is modified assist, transfer sit to stand and transfers into chair. Pt is alert/oriented. Pt was admitted for Abnormal Rhythm. Veena from [facility] confirmed demographic and contact information is correct on facesheet. Per Veena from [facility], patient's Joanne Saul is his medical decision maker if he is unable. Per Veena from [facility], pt does not require insurance authorization to return over the weekend. D/C plan: Return to [facility] Next of Kin: Shalom Saul, , phone# [phone] PCP: Dr. Sigala Address: Correct on facesheet
[2025-04-24 14:44] LABS: Troponin I < 0.020 ng/mL (0.0-0.045)
[2025-04-24 15:37] LABS: Cocci Serology, IgM Negative (Negative)
[2025-04-24 16:18] LABS: B-Type Natriuretic Peptide 234 pg/mL (0-100)
[2025-04-24] MEDS: ATORVASTATIN CALCIUM 20 MG TABLET 40 MG PO (20:30)
[2025-04-24 21:11] LABS: Partial Thromboplastin Time 51.2 Seconds (22.0-36.0)
[2025-04-25] VITALS (15 sets, daily range): BP systolic 114–139; BP diastolic 70–86; PULSE 38–135; RESP 16–97; TEMP 35.8–36.7; O2SAT 95–97; BMI 30.2
[2025-04-25] MEDS: METOPROLOL TARTRATE 25 MG TABLET PO (01:32)
[2025-04-25] MEDS: AMIODARONE 360 MG IVPB 360 MG/200 ML BAG 16.667 MG IV (01:33)
[2025-04-25 04:15] LABS: Basophils # (Auto) 0.1 Thou/mm3 (0.0-0.2); Basophils % (Auto) 1 % (0-2.5); Eosinophils # (Auto) 0.4 Thou/mm3 (0.0-0.5); Eosinophils % (Auto) 5 % (0-10); Hematocrit 28.7 % (41.0-53.0); Hemoglobin 9.3 g/dL (13.5-16.0); Immature Granulocytes Auto 0.03 Thou/mm3 (0.00-0.00); Lymphocytes # (Auto) 0.9 Thou/mm3 (1.0-4.8); Lymphocytes % (Auto) 11 % (10-50); Mean Corpuscular HGB Conc 32.4 g/dl (31.0-37.0); Mean Corpuscular Hemoglobin 26.7 pg (25.0-35.0); Mean Corpuscular Volume 83 fL (80-100); Monocytes # (Auto) 0.5 Thou/mm3 (0.0-0.8); Monocytes % (Auto) 6 % (0-12); Neutrophils # (Auto) 6.4 Thou/mm3 (1.8-7.7); Neutrophils % (Auto) 77 % (37-80); Nucleated Red Blood Cell # 0.00 Thou/mm3 (0.00-0.00); Nucleated Red Blood Cell % 0 /100 WBC (0); Platelet Count 208 Thou/mm3 (140-440); RDW Standard Deviation 51.1 fL (35.1-43.9); Red Blood Count 3.48 Miln/mm3 (4.50-5.90); White Blood Count 8.3 Thou/mm3 (3.8-10.6)
[2025-04-25 04:34] LABS: Partial Thromboplastin Time 62.8 Seconds (22.0-36.0)
[2025-04-25 04:44] LABS: Alanine Aminotransferase 20 U/L (10-49); Albumin, Serum 3.8 gm/dL (3.4-4.8); Albumin/Globulin Ratio 1.1 (1.2-2.2); Alkaline Phosphatase 119 U/L (46-116); Anion Gap 10 (7-16); Aspartate Amino Transferase 29 U/L (0-34); BUN/Creatinine Ratio 9 Ratio (12-20); Bilirubin,Total 0.4 mg/dL (0.3-1.2); Blood Urea Nitrogen 17 mg/dL (9-23); Calcium 8.7 mg/dL (8.3-10.6); Calcium (Corrected) 8.9 mg/dL (8.5-10.1); Carbon Dioxide 24.1 mMol/L (20.0-31.0); Chloride 100 mMol/L (98-107); Creatinine (Component) 1.8 mg/dL (0.6-1.3); Estimated Creatinine Clearance 33.3 mL/min (>60); Globulin 3.5 gm/dL (2.3-3.5); Glucose 119 mg/dL (74-106); Magnesium 2.0 mg/dL (1.6-2.6); Osmolality,Calculated 270 (275-295); Phosphorous 3.1 mg/dL (2.4-5.1); Potassium 3.9 mMol/L (3.4-5.1); Sodium 134 mMol/L (136-145); Total Protein 7.3 gm/dL (5.7-8.2); eGFR 38 See Note
[2025-04-25] MEDS: LEVOTHYROXINE SODIUM 25 MCG TABLET 50 MCG PO (05:51)
[2025-04-25] MEDS: cefTRIAXone/D5w 1gm IV premix 1 GM/50 ML BAG IV (09:34)
[2025-04-25] MEDS: THIAMINE INJ 100 MG/ML VIAL 2 ML IVP (09:34)
[2025-04-25] MEDS: TAMSULOSIN HCL 0.4 MG CAPSULE PO (09:35)
[2025-04-25] MEDS: FOLIC ACID 1 MG TABLET PO (09:35)
[2025-04-25] MEDS: ASPIRIN EC 81 MG TABEC PO (09:35)
[2025-04-25] MEDS: Magnesium Sulfate 4 GM Ivpb 4 GM/50 ML BAG IV (09:55)
[2025-04-25] MEDS: POTASSIUM CHLORIDE 10% 20 MEQ/15 ML UDC PO (09:55)
--- NOTE | 2025-04-25 11:17 | ESPR_ITS ---
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 The patient has completed radiation therapy under the care of Dr. Vasquez. He also has a history of atrial fibrillation hypertension, diabetes, hyperlipidemia, hypothyroidism, BPH, and dementia. The patient presents to the emergency department for evaluation of an abnormal heart rate. The patient is alert and oriented only to person and birthday and is a poor historian, with baseline confusion and dementia. He denies chest pain, palpitations, shortness of breath, dizziness, paroxysmal nocturnal dyspnea , or other associated symptoms. [facility] staff reported that the patient had complained of feeling short of breath and desaturated to 88%. He was placed on oxygen, and EMS was called. On EMS arrival, the patient was found to be in ventricular tachycardia, though he denied any associated symptoms such as chest pain or shortness of breath. The patient was recently admitted to [facility] for A-fib RVR, NSTEMI and SITA. Additional history is unavailable at this time. Recent Imaging: Chest CT (03/26/2025): Mild aneurysmal dilatation of the ascending thoracic aorta. Left lateral para-aortic lymphadenopathy has improved compared to the prior scan (August 2024). Notably, the left common iliac node measures 23 mm (compared to 11 mm in August 2024) and additional external iliac lymph nodes, with the largest measuring 25 mm. Lymph [place] mass in the right groin measures 4 cm (down from 7 cm in August 2024). ED Course: Vitals: BP 112/77 mmHg, HR 150 bpm, RR 20, Temp 98.5?F, O2 saturation 98% on room air. Labs:WBC 10.9 x 10?/?L,Hemoglobin 10.6 g/dL, Coagulation profile within normal limits.BUN 22 mg/dL, Creatinine 1.8 mg/dL (Creatinine Clearance 33.3 mL/min),AST 38 U/L, ALP 125 U/L,Troponin: Negative Urinalysis: Turbid, leukocyte esterase (LE) +, 29 RBCs, 20 WBCs, calcium oxalate crystals. Imaging: Head CT: No acute hemorrhage, mass effect, or midline shift.,Chest X- ray: Pneumonia in the right base. EKG: Vtach vs Aflutter with 2;2;1 block, underlying RBBB. HR 146 bpm, QTc 413 ms. Treatment in ED:1 L Normal Saline bolus. Ziprasidone 10 mg for agitation..Amiodarone drip started. Lorazepam 1 mg x2 for anxiety/agitation. Amiodarone 200 mg IV bolus. Past medical history as above Home Medications:Amiodarone 200 mg daily.Aspirin 81 mg daily.Losartan 50 mg daily.Metoprolol tartrate 25 mg twice daily.Quetiapine 50 mg twice daily.Tamsulosin 0.4 mg daily.Tramadol (unspecified dosing).Xarelto 20 mg daily. Past Surgical History:Patient is unable to provide any surgical history at this time. Allergies: NKDA. Family History:The patient denies any history of heart disease in the family. Social History:The patient lives with his and has a history of alcohol use, consuming 12-24 beers daily. He denies smoking or recreational drug use. 04/25/2025. No acute overnight. Patient was seen and examined. On telemetry patient is found sinus rhythm, patient completed amiodarone drip, overnight patient had A-fib with RVR, received additional metoprolol tartrate 25 mg, recommend to restart home metoprolol tartrate 25 mg twice daily and amiodarone 200 mg twice daily. Can be transitioned from heparin drip to Xarelto. Patient will need extensive cardiac ischemic workup outpatient including LHC. However will need to follow-up with oncology regarding the treatment plan and prognosis before proceeding with invasive procedures. Exam Vital Signs Temp Pulse Resp BP Pulse Ox O2 Del Method 97.3 F 74 22 H 125/75 95 Room Air 04/25/25 08:00 04/25/25 08:11 04/25/25 08:11 04/25/25 08:00 04/25/25 08:00 04/25/25 08:00 Narrative Exam GENERAL: no acute distress, AAO x2, well nourished. HEENT: Head AT/ NC. Mucous membranes moist. PERRL. NECK: Supple, no lymphadenopathy, no carotid bruits. CARDIOVASCULAR: RRR. Normal S1/S2, No m/r/g. No pitting edema of bilateral LEs. RESPIRATORY: CTAB. No wheezing, rhonchi, crackles. GASTROINTESTINAL: Abdomen soft, non tender no palpable masses. Bowel sounds present in all 4 quadrants. MUSCULOSKELETAL:? No cyanosis or edema, no visible joint swelling. NEUROLOGICAL: CN II-XII grossly intact. No focal deficits. Sensation intact, symmetric. PSYCHIATRIC: Awake and alert, not agitated, normal mood and affect. INTEGUMENTARY: No obvious rashes, no jaundice, normal turgor. Objective Labs 04/25/25 03:17 04/25/25 03:17 Labs: Laboratory Results - last 24 hr 04/24/25 04/24/25 04/24/25 08:47 12:30 19:44 WBC RBC Hgb Hct MCV MCH MCHC RDW Std Deviation Plt Count Neut % (Auto) Lymph % (Auto) [place] % (Auto) Eos % (Auto) Baso % (Auto) Neut # (Auto) Lymph # (Auto) [place] # (Auto) Eos # (Auto) Baso # (Auto) Immature Gran # (Auto) Absolute Nucleated RBC Immature Gran % Nucleated RBC % APTT 31.0 51.2 H D Sodium Potassium Chloride Carbon Dioxide Anion Gap BUN Creatinine Estim Creat Clear Calc eGFR BUN/Creatinine Ratio Glucose Calculated Osmolality Calcium Corrected Calcium Phosphorus Magnesium Total Bilirubin AST ALT Alkaline Phosphatase Troponin I < 0.020 B-Natriuretic Peptide 234 H Total Protein Albumin Globulin Albumin/Globulin Ratio Coccidioides IgM Ab Negative 04/25/25 03:17 WBC 8.3 RBC 3.48 L Hgb 9.3 L Hct 28.7 L MCV 83 MCH 26.7 MCHC 32.4 RDW Std Deviation 51.1 H Plt Count 208 Neut % (Auto) 77 Lymph % (Auto) 11 [place] % (Auto) 6 Eos % (Auto) 5 Baso % (Auto) 1 Neut # (Auto) 6.4 Lymph # (Auto) 0.9 L [place] # (Auto) 0.5 Eos # (Auto) 0.4 Baso # (Auto) 0.1 Immature Gran # (Auto) 0.03 H Absolute Nucleated RBC 0.00 Immature Gran % 0 Nucleated RBC % 0 APTT 62.8 H D Sodium 134 L Potassium 3.9 Chloride 100 Carbon Dioxide 24.1 Anion Gap 10 BUN 17 Creatinine 1.8 H Estim Creat Clear Calc 33.3 L eGFR 38 L BUN/Creatinine Ratio 9 L Glucose 119 H Calculated Osmolality 270 L Calcium 8.7 Corrected Calcium 8.9 Phosphorus 3.1 Magnesium 2.0 Total Bilirubin 0.4 AST 29 ALT 20 Alkaline Phosphatase 119 H Troponin I B-Natriuretic Peptide Total Protein 7.3 Albumin 3.8 Globulin 3.5 Albumin/Globulin Ratio 1.1 L Coccidioides IgM Ab Quality Measures Quality Measures none Advance care planning discussed with:: patient Assessment & Plan Assessment Current Active Medications: Generic Name Dose Route Start Last Admin Trade Name Freq PRN Reason Stop Dose Admin Acetaminophen 650 mg 04/23/25 21:24 Acetaminophen 325 Mg Tablet PO 05/23/25 21:23 Q6H PRN Fever >101.5 Aspirin 81 mg 04/24/25 13:00 04/25/25 09:35 Aspirin Ec 81 Mg Tabec PO 05/24/25 12:59 81 mg QDAY SHONA Administration Atorvastatin Calcium 40 mg 04/24/25 21:00 04/24/25 20:30 Atorvastatin Calcium 20 Mg Tablet PO 05/24/25 20:59 40 mg HS SHONA Administration Diazepam 10 mg 04/23/25 21:24 Diazepam Inj 5 Mg/Ml Vial 2 Ml IVP X1 PRN Breakthrough Agitation Folic Acid 1 mg 04/24/25 09:00 04/25/25 09:35 Folic Acid 1 Mg Tablet PO 05/24/25 08:59 1 mg QDAY SHONA Administration Ceftriaxone Sodium/Dextrose 1 gm in 50 mls @ 100 mls/hr 04/23/25 21:58 04/25/25 09:34 Rocephin/D5w 1gm Iv Premix IV 04/30/25 21:57 100 mls/hr QDAY SHONA Administration Heparin Sodium/Dextrose 25,000 unit in 250 mls @ 9.24 mls/hr 04/24/25 12:15 04/25/25 07:25 Heparin In D5w Ivpb IV 05/08/25 12:14 12 units/kg/hr .Q24H SHONA 9.24 mls/hr Protocol Titration 12 UNITS/KG/HR Magnesium Sulfate 4 gm in 50 mls @ 12.5 mls/hr 04/25/25 09:33 04/25/25 09:55 Magnesium Sulfate Ivpb IV 04/25/25 13:32 12.5 mls/hr X1 ONE Administration Levothyroxine Sodium 50 mcg 04/24/25 11:45 04/25/25 05:51 Levothyroxine Sodium 25 Mcg Tablet PO 05/24/25 11:44 50 mcg ACBR SHONA Administration Lorazepam 0.5 mg 04/23/25 21:24 Lorazepam 0.5 Mg Tablet PO 04/28/25 21:23 Q4HR PRN CIWA Score 2-6 Lorazepam 1 mg 04/23/25 21:30 Lorazepam 0.5 Mg Tablet PO 04/28/25 21:29 Q4HR PRN CIWA SCORE 7-11 Lorazepam 2 mg 04/23/25 21:30 04/25/25 02:05 Lorazepam 0.5 Mg Tablet PO 04/28/25 21:29 2 mg Q4HR PRN Administration CIWA SCORE 12-15 Montelukast Sodium 10 mg 04/25/25 21:00 Montelukast Sodium 10 Mg Tablet PO 05/25/25 20:59 QPM SHONA Pantoprazole Sodium 40 mg 04/24/25 09:00 04/25/25 09:34 Pantoprazole Inj 40 Mg Vial IVP 05/24/25 08:59 40 mg QDAY SHONA Administration Quetiapine Fumarate 50 mg 04/24/25 11:45 04/25/25 09:35 Quetiapine Fumarate 25 Mg Tablet PO 05/24/25 11:44 50 mg BID SHONA Administration Tamsulosin HCl 0.4 mg 04/24/25 12:00 04/25/25 09:35 Tamsulosin Hcl 0.4 Mg Capsule PO 05/24/25 11:59 0.4 mg QDAY SHONA Administration Thiamine HCl 100 mg 04/24/25 09:00 04/25/25 09:34 Thiamine Inj 100 Mg/Ml Vial 2 Ml IVP 05/24/25 08:59 100 mg QDAY SHONA Administration Plan A 74-year-old male with a significant past medical history of 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 The patient has completed radiation therapy under the care of Dr. Vasquez. He also has a history of atrial fibrillation hypertension, diabetes, hyperlipidemia, hypothyroidism, BPH, and dementia was admitted for V. tach versus a flutter with 2-1 block treatment and management. 1 ventricular tachycardia 2 A-flutter with a 2:1 block with underlying RBBB(as a DDx) 3 history of A-fib with RVR 4 hypertension 5 hyperlipidemia 6 diabetes(A1c 6.2) 7 metastatic squamous cell carcinoma 8 BPH 9 SITA 10 Iron deficiency anemia The patient presents with abnormal heart rate and upon EMS arrival was found to be ventricular tachycardia. However considering the patient history of A-fib, a flutter with 2-1 block and underlying right bundle branch block is more likely as noted on the rhythm strip Patient denies any chest pain, shortness of breath, palpitation which is atypical for V. tach, vitals were appeared to be stable Troponin x 1 was negative, Home medication is metoprolol, amiodarone, Xarelto ECHO:04/24/25: Summary 1. Normal Left ventricle size and systolic function is normal. Estimated ejection fraction is 50-55%. 2. The right ventricle not well visualized but function appears normal. 3. There is mild aortic valve regurgitation. Mild AV sclerosis without stenosis. 4. There is trace mitral valve regurgitation. Mild MAC. 5. There is trace tricuspid valve regurgitation. Recommendations Given the hx there is a likelihood of a flutter with 2-1 block and underlying RBBB, patient is currently rate controlled, Completed amiodarone drip, can be transition to home regimen 200 mg amiodarone twice daily for now, continue with metoprolol to tartrate 25 mg twice daily, on DC decrease Amiodoron to 200 qday. Continue cardiac sonographer, repeat EKG Continue aspirin, Hep gtt can be switch to Xarelto Oxygen support Strict control of risk factors such as hypertension, hyperlipidemia, diabetes Keep electrolytes within normal limits, magnesium above 2 and potassium above 4 We will obtain echo to evaluate LVEF, structural abnormalities, RV function. We will recommend to obtain the records, cardiology notes from [facility] Given patient history of recent hospitalization for non-STEMI, arrhythmia event, coronary artery disease is a strong differential diagnosis. Patient will need further evaluation for coronary artery disease. Given the clinical presentation, risk factors patient will need extensive outpatient ischemic cardiac workup. However we need to follow-up with oncology Dr. Vasquez regarding the further treatment plan and prognosis before proceeding with any invasive procedures. The rest of the chronic condition to be managed by primary team. Patient care was discussed with attending physician Dr. Rukhsana Lucas MD PGY-3 I have carefully reviewed this document. Due to imperfections in the voice software, there could be grammatical errors including phonetic/typographic errors. This in no way compromises the medical care the patient is receiving Attending Provider Attestation/Addendum I have personally seen and examined the patient separately on the above date of service and discussed the plan of care with the resident. I reviewed the resident Dr. Beth Rivera consultation progress note and agree with the resident findings and plan in the note above and have also edited the documentation to reflect my findings and plan. A 75-year-old male with a past medical history of metastatic squamous cell carcinoma stage IV of right inguinal region metastasis to bone and lung s/p radiation therapy and follows Dr. Vasquez, paroxysmal atrial fibrillation, mild CAD by cardiac cath in 2020, dilated dilated ascending thoracic aorta at 4.5 cm, essential hypertension, type 2 diabetes mellitus, hyperlipidemia, SITA on CKD, hydronephrosis with ureteral stent in 03/2025 at [facility], BPH, mild cognitive deficiency versus dementia, significant lymphadenopathy including para-aortic as well as, iliac and external iliac lymph nodes, history of alcohol abuse for many years 12-24 beers daily presented to the emergency department for further evaluation of abnormal and elevated heart rate. Initial EKG in the emergency department showed, wide-complex tachycardia with regular rhythm and mostly atrial flutter with 2 is to [address]- T changes., Mild elevated WBC at 11, BP 112/77 mmHg, rest of vital stable, mild SITA with creatinine of 1.8. ALP of 125, troponin was negative.. UA was positive with leuk esterase as well as WBC. CT head negative. Cardiology was consulted for further evaluation of wide-complex tachycardia with possible VT versus atrial fibrillation. Reviewed the EKG and patient mostly has atrial flutter with 2 is to 1 block and underlying right bundle branch block giving the appearance of wide-complex tachycardia. Unlikely VT given the heart rate and the presentation with hemodynamic stability and his history of previous paroxysmal atrial fibrillation. Recent admission to [facility] when patient had hydronephrosis status post ureteral stent and developed atrial fibrillation with RVR during this admission and was started on amiodarone at that point of time. Acute kidney injury with electrolyte abnormalities is probably provoking the atrial fibrillation/flutter with RVR. Started on amiodarone drip and will completed as per protocol. Will need to be on amiodarone 200 mg twice daily as the patient needs complete loading. After a month patient should be converted to amiodarone 200 mg once daily. Keep potassium greater than 4 and magnesium greater than 2.2. Continue telemetry. Heparin drip for anticoagulation and eventually can be changed to Eliquis 5 mg twice daily rather than Xarelto. Echo ordered and showed normal LV function with the same as before [facility]. Patient does have a history of dilated ascending aorta at 4.5 cm. 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 Patient did have cardiac catheterization done in 2020 which showed only mild CAD around 20% stenosis in the distal RCA and some mild diffuse disease. He will need further ischemic workup given the nonspecific ST-T changes as well as some chest pain which can be completed as outpatient as troponins have been negative. Management of rest of the medical conditions as per primary team and other consultants. Thank you for the consult and allowing me to participate in the care of the patient. Cardiology will continue to follow. Jakob Milian M.D. Interventional Cardiology
[2025-04-25 11:33] LABS: Partial Thromboplastin Time 62.3 Seconds (22.0-36.0)
--- NOTE | 2025-04-25 11:39 | PC.RT ---
sputum sample collected and sent to lab.
[2025-04-25] MEDS: Heparin/D5w 25K 250 ML Ivpb 25,000 UNIT/250 ML BAG 9.24 UNIT IV (12:09)
--- NOTE | 2025-04-25 14:47 | PD.RESPRO ---
Documentation for date of: 04/25/25 Exam Vital Signs Temp Pulse Resp BP Pulse Ox O2 Del Method 97.3 F 65 22 H 125/75 95 Room Air 04/25/25 08:00 04/25/25 12:00 04/25/25 08:11 04/25/25 08:00 04/25/25 08:00 04/25/25 08:00 Objective Labs 04/25/25 03:17 04/25/25 03:17 Labs: Laboratory Results - last 24 hr 04/24/25 04/24/25 04/25/25 08:47 19:44 03:17 WBC 8.3 RBC 3.48 L Hgb 9.3 L Hct 28.7 L MCV 83 MCH 26.7 MCHC 32.4 RDW Std Deviation 51.1 H Plt Count 208 Neut % (Auto) 77 Lymph % (Auto) 11 [place] % (Auto) 6 Eos % (Auto) 5 Baso % (Auto) 1 Neut # (Auto) 6.4 Lymph # (Auto) 0.9 L [place] # (Auto) 0.5 Eos # (Auto) 0.4 Baso # (Auto) 0.1 Immature Gran # (Auto) 0.03 H Absolute Nucleated RBC 0.00 Immature Gran % 0 Nucleated RBC % 0 APTT 51.2 H D 62.8 H D Sodium 134 L Potassium 3.9 Chloride 100 Carbon Dioxide 24.1 Anion Gap 10 BUN 17 Creatinine 1.8 H Estim Creat Clear Calc 33.3 L eGFR 38 L BUN/Creatinine Ratio 9 L Glucose 119 H Calculated Osmolality 270 L Calcium 8.7 Corrected Calcium 8.9 Phosphorus 3.1 Magnesium 2.0 Total Bilirubin 0.4 AST 29 ALT 20 Alkaline Phosphatase 119 H B-Natriuretic Peptide 234 H Total Protein 7.3 Albumin 3.8 Globulin 3.5 Albumin/Globulin Ratio 1.1 L Coccidioides IgM Ab Negative 04/25/25 10:46 WBC RBC Hgb Hct MCV MCH MCHC RDW Std Deviation Plt Count Neut % (Auto) Lymph % (Auto) [place] % (Auto) Eos % (Auto) Baso % (Auto) Neut # (Auto) Lymph # (Auto) [place] # (Auto) Eos # (Auto) Baso # (Auto) Immature Gran # (Auto) Absolute Nucleated RBC Immature Gran % Nucleated RBC % APTT 62.3 H Sodium Potassium Chloride Carbon Dioxide Anion Gap BUN Creatinine Estim Creat Clear Calc eGFR BUN/Creatinine Ratio Glucose Calculated Osmolality Calcium Corrected Calcium Phosphorus Magnesium Total Bilirubin AST ALT Alkaline Phosphatase B-Natriuretic Peptide Total Protein Albumin Globulin Albumin/Globulin Ratio Coccidioides IgM Ab Quality Measures Quality Measures none Assessment & Plan Assessment Current Active Medications: Generic Name Dose Route Start Last Admin Trade Name Freq PRN Reason Stop Dose Admin Acetaminophen 650 mg 04/23/25 21:24 Acetaminophen 325 Mg Tablet PO 05/23/25 21:23 Q6H PRN Fever >101.5 Amiodarone HCl 200 mg 04/25/25 14:45 Amiodarone Hcl 200 Mg Tablet PO 05/25/25 14:44 BID SHONA Aspirin 81 mg 04/24/25 13:00 04/25/25 09:35 Aspirin Ec 81 Mg Tabec PO 05/24/25 12:59 81 mg QDAY SHONA Administration Atorvastatin Calcium 40 mg 04/24/25 21:00 04/24/25 20:30 Atorvastatin Calcium 20 Mg Tablet PO 05/24/25 20:59 40 mg HS SHONA Administration Diazepam 10 mg 04/23/25 21:24 Diazepam Inj 5 Mg/Ml Vial 2 Ml IVP X1 PRN Breakthrough Agitation Folic Acid 1 mg 04/24/25 09:00 04/25/25 09:35 Folic Acid 1 Mg Tablet PO 05/24/25 08:59 1 mg QDAY SHONA Administration Ceftriaxone Sodium/Dextrose 1 gm in 50 mls @ 100 mls/hr 04/23/25 21:58 04/25/25 09:34 Rocephin/D5w 1gm Iv Premix IV 04/30/25 21:57 100 mls/hr QDAY SHONA Administration Levothyroxine Sodium 50 mcg 04/24/25 11:45 04/25/25 05:51 Levothyroxine Sodium 25 Mcg Tablet PO 05/24/25 11:44 50 mcg ACBR SHONA Administration Lorazepam 0.5 mg 04/23/25 21:24 Lorazepam 0.5 Mg Tablet PO 04/28/25 21:23 Q4HR PRN CIWA Score 2-6 Lorazepam 1 mg 04/23/25 21:30 Lorazepam 0.5 Mg Tablet PO 04/28/25 21:29 Q4HR PRN CIWA SCORE 7-11 Lorazepam 2 mg 04/23/25 21:30 04/25/25 02:05 Lorazepam 0.5 Mg Tablet PO 04/28/25 21:29 2 mg Q4HR PRN Administration CIWA SCORE 12-15 Metoprolol Succinate 25 mg 04/25/25 14:45 Metoprolol Succinate Xl 25 Mg Tabcr PO 05/25/25 14:44 QDAY SHONA Montelukast Sodium 10 mg 04/25/25 21:00 Montelukast Sodium 10 Mg Tablet PO 05/25/25 20:59 QPM SHONA Pantoprazole Sodium 40 mg 04/24/25 09:00 04/25/25 09:34 Pantoprazole Inj 40 Mg Vial IVP 05/24/25 08:59 40 mg QDAY SHONA Administration Quetiapine Fumarate 50 mg 04/24/25 11:45 04/25/25 09:35 Quetiapine Fumarate 25 Mg Tablet PO 05/24/25 11:44 50 mg BID SHONA Administration Tamsulosin HCl 0.4 mg 04/24/25 12:00 04/25/25 09:35 Tamsulosin Hcl 0.4 Mg Capsule PO 05/24/25 11:59 0.4 mg QDAY SHONA Administration Thiamine HCl 100 mg 04/24/25 09:00 04/25/25 09:34 Thiamine Inj 100 Mg/Ml Vial 2 Ml IVP 05/24/25 08:59 100 mg QDAY SHONA Administration
--- NOTE | 2025-04-25 14:55 | ESPR_ITS ---
Documentation for date of: 04/25/25 Subjective Subjective Interval history: Patient was seen and examined at bedside. No acute events took place overnight. Patient has been resting well. He is lethargic. Denies chest pain right now and denies shortness of breath. On the last bag of amiodarone drip. Admits to lower abdominal pain, pain with urination and bowel movements. Pending echocardiogram will wait for normalization of kidney fx in the AM lab DC after PT eval tomorrow Exam Vital Signs Temp Pulse Resp BP Pulse Ox O2 Del Method 97.3 F 65 22 H 125/75 95 Room Air 04/25/25 08:00 04/25/25 12:00 04/25/25 08:11 04/25/25 08:00 04/25/25 08:00 04/25/25 08:00 Narrative Exam GENERAL: no acute distress, AAO x2, well nourished. HEENT: Head AT/ NC. Mucous membranes moist. PERRL. NECK: Supple, no lymphadenopathy, no carotid bruits. CARDIOVASCULAR: RRR. Normal S1/S2, No m/r/g. No pitting edema of bilateral LEs. RESPIRATORY: CTAB. No wheezing, rhonchi, crackles. GASTROINTESTINAL: Abdomen soft, non tender no palpable masses. Bowel sounds present in all 4 quadrants. MUSCULOSKELETAL:? No cyanosis or edema, no visible joint swelling. NEUROLOGICAL: CN II-XII grossly intact. No focal deficits. Sensation intact, symmetric. PSYCHIATRIC: Awake and alert, not agitated, normal mood and affect. INTEGUMENTARY: No obvious rashes, no jaundice, normal turgor. Objective Labs 04/25/25 03:17 04/25/25 03:17 Labs: Laboratory Results - last 24 hr 04/24/25 04/24/25 04/25/25 08:47 19:44 03:17 WBC 8.3 RBC 3.48 L Hgb 9.3 L Hct 28.7 L MCV 83 MCH 26.7 MCHC 32.4 RDW Std Deviation 51.1 H Plt Count 208 Neut % (Auto) 77 Lymph % (Auto) 11 [place] % (Auto) 6 Eos % (Auto) 5 Baso % (Auto) 1 Neut # (Auto) 6.4 Lymph # (Auto) 0.9 L [place] # (Auto) 0.5 Eos # (Auto) 0.4 Baso # (Auto) 0.1 Immature Gran # (Auto) 0.03 H Absolute Nucleated RBC 0.00 Immature Gran % 0 Nucleated RBC % 0 APTT 51.2 H D 62.8 H D Sodium 134 L Potassium 3.9 Chloride 100 Carbon Dioxide 24.1 Anion Gap 10 BUN 17 Creatinine 1.8 H Estim Creat Clear Calc 33.3 L eGFR 38 L BUN/Creatinine Ratio 9 L Glucose 119 H Calculated Osmolality 270 L Calcium 8.7 Corrected Calcium 8.9 Phosphorus 3.1 Magnesium 2.0 Total Bilirubin 0.4 AST 29 ALT 20 Alkaline Phosphatase 119 H B-Natriuretic Peptide 234 H Total Protein 7.3 Albumin 3.8 Globulin 3.5 Albumin/Globulin Ratio 1.1 L Coccidioides IgM Ab Negative 04/25/25 10:46 WBC RBC Hgb Hct MCV MCH MCHC RDW Std Deviation Plt Count Neut % (Auto) Lymph % (Auto) [place] % (Auto) Eos % (Auto) Baso % (Auto) Neut # (Auto) Lymph # (Auto) [place] # (Auto) Eos # (Auto) Baso # (Auto) Immature Gran # (Auto) Absolute Nucleated RBC Immature Gran % Nucleated RBC % APTT 62.3 H Sodium Potassium Chloride Carbon Dioxide Anion Gap BUN Creatinine Estim Creat Clear Calc eGFR BUN/Creatinine Ratio Glucose Calculated Osmolality Calcium Corrected Calcium Phosphorus Magnesium Total Bilirubin AST ALT Alkaline Phosphatase B-Natriuretic Peptide Total Protein Albumin Globulin Albumin/Globulin Ratio Coccidioides IgM Ab Quality Measures Quality Measures none Advance care planning discussed with:: patient Assessment & Plan Assessment Current Active Medications: Generic Name Dose Route Start Last Admin Trade Name Freq PRN Reason Stop Dose Admin Acetaminophen 650 mg 04/23/25 21:24 Acetaminophen 325 Mg Tablet PO 05/23/25 21:23 Q6H PRN Fever >101.5 Amiodarone HCl 200 mg 04/25/25 14:45 Amiodarone Hcl 200 Mg Tablet PO 05/25/25 14:44 BID SHONA Aspirin 81 mg 04/24/25 13:00 04/25/25 09:35 Aspirin Ec 81 Mg Tabec PO 05/24/25 12:59 81 mg QDAY SHONA Administration Atorvastatin Calcium 40 mg 04/24/25 21:00 04/24/25 20:30 Atorvastatin Calcium 20 Mg Tablet PO 05/24/25 20:59 40 mg HS SHONA Administration Diazepam 10 mg 04/23/25 21:24 Diazepam Inj 5 Mg/Ml Vial 2 Ml IVP X1 PRN Breakthrough Agitation Folic Acid 1 mg 04/24/25 09:00 04/25/25 09:35 Folic Acid 1 Mg Tablet PO 05/24/25 08:59 1 mg QDAY SHONA Administration Ceftriaxone Sodium/Dextrose 1 gm in 50 mls @ 100 mls/hr 04/23/25 21:58 04/25/25 09:34 Rocephin/D5w 1gm Iv Premix IV 04/30/25 21:57 100 mls/hr QDAY SHONA Administration Levothyroxine Sodium 50 mcg 04/24/25 11:45 04/25/25 05:51 Levothyroxine Sodium 25 Mcg Tablet PO 05/24/25 11:44 50 mcg ACBR SHONA Administration Lorazepam 0.5 mg 04/23/25 21:24 Lorazepam 0.5 Mg Tablet PO 04/28/25 21:23 Q4HR PRN CIWA Score 2-6 Lorazepam 1 mg 04/23/25 21:30 Lorazepam 0.5 Mg Tablet PO 04/28/25 21:29 Q4HR PRN CIWA SCORE 7-11 Lorazepam 2 mg 04/23/25 21:30 04/25/25 02:05 Lorazepam 0.5 Mg Tablet PO 04/28/25 21:29 2 mg Q4HR PRN Administration CIWA SCORE 12-15 Metoprolol Succinate 25 mg 04/25/25 14:45 Metoprolol Succinate Xl 25 Mg Tabcr PO 05/25/25 14:44 QDAY SHONA Montelukast Sodium 10 mg 04/25/25 21:00 Montelukast Sodium 10 Mg Tablet PO 05/25/25 20:59 QPM SHONA Pantoprazole Sodium 40 mg 04/24/25 09:00 04/25/25 09:34 Pantoprazole Inj 40 Mg Vial IVP 05/24/25 08:59 40 mg QDAY SHONA Administration Quetiapine Fumarate 50 mg 04/24/25 11:45 04/25/25 09:35 Quetiapine Fumarate 25 Mg Tablet PO 05/24/25 11:44 50 mg BID SHONA Administration Rivaroxaban 10 mg/ Rivaroxaban 15 mg 04/25/25 15:00 5 mg PO 05/25/25 14:59 QDAY SHONA Tamsulosin HCl 0.4 mg 04/24/25 12:00 04/25/25 09:35 Tamsulosin Hcl 0.4 Mg Capsule PO 05/24/25 11:59 0.4 mg QDAY SHONA Administration Thiamine HCl 100 mg 04/24/25 09:00 04/25/25 09:34 Thiamine Inj 100 Mg/Ml Vial 2 Ml IVP 05/24/25 08:59 100 mg QDAY SHONA Administration Plan 75 year old male with history of atrial fibrillation, hypertension, diabetes, hyperlipidemia, hypothyroidism, BPH, 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 for evaluation of abnormal heart rhythm today, admitted for a fib with rvr. #A fib with RVR, resolved #?V. tach episode, by history EKG (in ED chart) HR 146 QTC 413. Amiodarone drip started in ED HR resolved from 150 to 65. Patient in sinus rhythm today, going in and out of A-fib likely, possible V. tach episode at halfway facility Trops negative and BNP 234 Echocardiogram showed normal left ventricular size and systolic function. EF 50 to 55%. Mild aortic valve regurg. RV size and fx normal as it appeared. Plan: - Patient completed amiodarone drip, and transition to home regiment amiodarone 200 mg twice daily. - Decrease amiodarone to 200 mg daily at discharge. 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 Has lung pulmonary metastases. Rales heard on physical exam. CXR pneumonia right base, could be volume overload. Plan: -No antibiotics at the moment - patient just completed augmentin at [facility] - Follow-up sputum culture #SITA Cr 1.8 today, 1.6 Most likely secondary to volume depletion -suspicion of prerenal Plan: - Follow renal panel in a.m. - If creatinine is therapeutic we will consider renal ultrasound to rule out CKD #UTI reports dysuria. Suprapubic tenderness on physical exam. UA Turbid LE + 29 RBC 20 WBC +2 calcium oxalate. No stones seen on imaging. Please consider CTAP for best visualization or concern for stones is enhanced. Plan: -Ceftriaxone 1g IV QD - Follow-up urine culture #Alcohol dependence Patient drinks 12-24 beers/day has never had alcohol withdrawals. Plan: -CIWA -Folic acid -Thiamine #Hypertension Patient family unable to assist with medications Plan - Hold antihypertensive for now #Prediabetic Patient was noted to be pre-diabetic. A1c 6.2 Plan: -Diabetes education #Hyperlipidemia Patient family unable to assist with medications Plan - Lipid panel shows LDL 74, start atorvastatin 40 nightly #hx hypothyroidism Patient family unable to assist with medications Plan - Resume home levothyroxine #hx of BPH Patient family unable to assist with medications Plan - Resume home tamsulosin Health Maintenance: Code status: Full DVT prophylaxis: Heparin GTT GI prophylaxis: protonix Diet: carb consistent [place]: yes Lines: PIV Supplemental O2: NC Disposition: Tele bed afib with RVR Case discussed with Attending Physician Dr. Ernie Ahn MD Internal Medicine PGY-2 Disclaimer: This note was dictated by speech recognition. Minor errors in mechanical design engineer facilities may be present due to voice recognition software. Attending Provider Attestation/Addendum I have discussed and was present for the essential components of the history, physical examination, diagnosis, and treatment plan with the resident. I agree with the patient's care as documented by the resident and amended herein by me. Caesar Faulkner DO. Although this document has been carefully reviewed, there may still be some phonetic and other typographical errors. These errors are purely grammatical due to imperfections in the software program and should not be construed in any way to compromise the substance of the patient's medical care during this visit. Patient seen and evaluated this AM. No acute events overnight, vital signs stable, patient afebrile, significant labs included WBC 8.3, hemoglobin low but stable at 9.3, sodium 134, BUN 1.7 and uptrending creatinine to 1.8. Sputum culture still pending, MRSA nares negative and urine culture also pending. Will transition amiodarone drip to home amiodarone regimen which is 200 mg twice daily, will also add metoprolol succinate 25 mg daily for now. Heparin drip will also be discontinued and the patient switched to renally dosed Xarelto, patient will also continue continue aspirin for now. Echocardiogram was performed demonstrated normal LV size and function, EF estimated at 50 to 55%. Per cardiology, no left heart cath needed for now. Physical therapy is pending. Will continue ceftriaxone for potential UTI, will also follow with urine culture results. Likely DC in 1 to 2 days pending clinical improvement
[2025-04-25] MEDS: METOPROLOL SUCCINATE XL 25 MG TABCR PO (15:48)
[2025-04-25] MEDS: RIVAROXABAN 10 MG, RIVAROXABAN 5 MG 15 MG PO (15:51)
[2025-04-25] MEDS: AMIODARONE HCL 200 MG TABLET PO ×2 (15:51→20:15)
[2025-04-25] MEDS: MONTELUKAST SODIUM 10 MG TABLET PO (20:16)
[2025-04-25] MEDS: ATORVASTATIN CALCIUM 20 MG TABLET 40 MG PO (20:16)
[2025-04-26] VITALS (12 sets, daily range): BP systolic 115–154; BP diastolic 72–84; PULSE 58–71; RESP 16–97; TEMP 36.1–36.8; O2SAT 95–98; BMI 30.7
[2025-04-26 05:29] LABS: Basophils # (Auto) 0.1 Thou/mm3 (0.0-0.2); Basophils % (Auto) 1 % (0-2.5); Eosinophils # (Auto) 0.4 Thou/mm3 (0.0-0.5); Eosinophils % (Auto) 5 % (0-10); Hematocrit 26.5 % (41.0-53.0); Immature Granulocytes Auto 0.02 Thou/mm3 (0.00-0.00); Lymphocytes # (Auto) 0.8 Thou/mm3 (1.0-4.8); Lymphocytes % (Auto) 10 % (10-50); Mean Corpuscular HGB Conc 32.5 g/dl (31.0-37.0); Mean Corpuscular Hemoglobin 27.4 pg (25.0-35.0); Mean Corpuscular Volume 84 fL (80-100); Monocytes # (Auto) 0.5 Thou/mm3 (0.0-0.8); Monocytes % (Auto) 7 % (0-12); Neutrophils # (Auto) 6.0 Thou/mm3 (1.8-7.7); Neutrophils % (Auto) 77 % (37-80); Nucleated Red Blood Cell # 0.00 Thou/mm3 (0.00-0.00); Nucleated Red Blood Cell % 0 /100 WBC (0); Platelet Count 192 Thou/mm3 (140-440); RDW Standard Deviation 52.7 fL (35.1-43.9); Red Blood Count 3.14 Miln/mm3 (4.50-5.90); White Blood Count 7.8 Thou/mm3 (3.8-10.6)
[2025-04-26 05:33] LABS: Hemoglobin 8.6 g/dL (13.5-16.0)
[2025-04-26] MEDS: LEVOTHYROXINE SODIUM 25 MCG TABLET 50 MCG PO (05:35)
[2025-04-26 05:40] LABS: INR 1.2 (0.9-1.3); Partial Thromboplastin Time 42.2 Seconds (22.0-36.0); Prothrombin Time 12.8 Seconds (9.0-12.2)
[2025-04-26 05:46] LABS: Alanine Aminotransferase 19 U/L (10-49); Albumin, Serum 3.6 gm/dL (3.4-4.8); Albumin/Globulin Ratio 1.2 (1.2-2.2); Alkaline Phosphatase 118 U/L (46-116); Anion Gap 9 (7-16); Aspartate Amino Transferase 24 U/L (0-34); BUN/Creatinine Ratio 12 Ratio (12-20); Bilirubin,Total 0.6 mg/dL (0.3-1.2); Blood Urea Nitrogen 20 mg/dL (9-23); Calcium 8.9 mg/dL (8.3-10.6); Calcium (Corrected) 9.2 mg/dL (8.5-10.1); Carbon Dioxide 24.2 mMol/L (20.0-31.0); Chloride 102 mMol/L (98-107); Creatinine (Component) 1.7 mg/dL (0.6-1.3); Estimated Creatinine Clearance 40.0 mL/min (>60); Globulin 3.0 gm/dL (2.3-3.5); Glucose 93 mg/dL (74-106); Magnesium 2.3 mg/dL (1.6-2.6); Osmolality,Calculated 272 (275-295); Phosphorous 3.6 mg/dL (2.4-5.1); Potassium 3.9 mMol/L (3.4-5.1); Sodium 135 mMol/L (136-145); Total Protein 6.6 gm/dL (5.7-8.2); eGFR 41 See Note
[2025-04-26] MEDS: cefTRIAXone/D5w 1gm IV premix 1 GM/50 ML BAG IV (08:09)
[2025-04-26] MEDS: THIAMINE INJ 100 MG/ML VIAL 2 ML IVP (08:09)
[2025-04-26] MEDS: METOPROLOL SUCCINATE XL 25 MG TABCR PO (08:10)
[2025-04-26] MEDS: FOLIC ACID 1 MG TABLET PO (08:10)
[2025-04-26] MEDS: TAMSULOSIN HCL 0.4 MG CAPSULE PO (08:10)
[2025-04-26] MEDS: RIVAROXABAN 10 MG, RIVAROXABAN 5 MG 15 MG PO (08:10)
[2025-04-26] MEDS: ASPIRIN EC 81 MG TABEC PO (08:11)
[2025-04-26] MEDS: AMIODARONE HCL 200 MG TABLET PO ×2 (08:11→20:30)
[2025-04-26] MEDS: MAGNESIUM CITRATE 300 ML BTL PO (13:04)
--- NOTE | 2025-04-26 15:01 | ESPR_ITS ---
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 The patient has completed radiation therapy under the care of Dr. Vasquez. He also has a history of atrial fibrillation hypertension, diabetes, hyperlipidemia, hypothyroidism, BPH, and dementia. The patient presents to the emergency department for evaluation of an abnormal heart rate. The patient is alert and oriented only to person and birthday and is a poor historian, with baseline confusion and dementia. He denies chest pain, palpitations, shortness of breath, dizziness, paroxysmal nocturnal dyspnea , or other associated symptoms. long-term staff reported that the patient had complained of feeling short of breath and desaturated to 88%. He was placed on oxygen, and EMS was called. On EMS arrival, the patient was found to be in ventricular tachycardia, though he denied any associated symptoms such as chest pain or shortness of breath. The patient was recently admitted to [facility] for A-fib RVR, NSTEMI and SITA. Additional history is unavailable at this time. Recent Imaging: Chest CT (03/26/2025): Mild aneurysmal dilatation of the ascending thoracic aorta. Left lateral para-aortic lymphadenopathy has improved compared to the prior scan (August 2024). Notably, the left common iliac node measures 23 mm (compared to 11 mm in August 2024) and additional external iliac lymph nodes, with the largest measuring 25 mm. Lymph [place] mass in the right groin measures 4 cm (down from 7 cm in August 2024). ED Course: Vitals: BP 112/77 mmHg, HR 150 bpm, RR 20, Temp 98.5?F, O2 saturation 98% on room air. Labs:WBC 10.9 x 10?/?L,Hemoglobin 10.6 g/dL, Coagulation profile within normal limits.BUN 22 mg/dL, Creatinine 1.8 mg/dL (Creatinine Clearance 33.3 mL/min),AST 38 U/L, ALP 125 U/L,Troponin: Negative Urinalysis: Turbid, leukocyte esterase (LE) +, 29 RBCs, 20 WBCs, calcium oxalate crystals. Imaging: Head CT: No acute hemorrhage, mass effect, or midline shift.,Chest X- ray: Pneumonia in the right base. EKG: Vtach vs Aflutter with 2;2;1 block, underlying RBBB. HR 146 bpm, QTc 413 ms. Treatment in ED:1 L Normal Saline bolus. Ziprasidone 10 mg for agitation..Amiodarone drip started. Lorazepam 1 mg x2 for anxiety/agitation. Amiodarone 200 mg IV bolus. Past medical history as above Home Medications:Amiodarone 200 mg daily.Aspirin 81 mg daily.Losartan 50 mg daily.Metoprolol tartrate 25 mg twice daily.Quetiapine 50 mg twice daily.Tamsulosin 0.4 mg daily.Tramadol (unspecified dosing).Xarelto 20 mg daily. Past Surgical History:Patient is unable to provide any surgical history at this time. Allergies: NKDA. Family History:The patient denies any history of heart disease in the family. Social History:The patient lives with his and has a history of alcohol use, consuming 12-24 beers daily. He denies smoking or recreational drug use. 04/25/2025. No acute overnight. Patient was seen and examined. On telemetry patient is found sinus rhythm, patient completed amiodarone drip, overnight patient had A-fib with RVR, received additional metoprolol tartrate 25 mg, recommend to restart home metoprolol tartrate 25 mg twice daily and amiodarone 200 mg twice daily. Can be transitioned from heparin drip to Xarelto. Patient will need extensive cardiac ischemic workup outpatient including [facility]. However will need to follow-up with oncology regarding the treatment plan and prognosis before proceeding with invasive procedures. 04/26/2025 No acute overnight events. Patient was seen and examined at bedside and found to be in normal sinus rhythm on telemetry. Currently on Xarelto 15 mg, tamsulosin 0.4 mg, amiodarone 200 mg twice daily. He needs workup cardiology workup from outpatient given his significant cardiac history and multiple episodes of A-fib with RVR and nonspecific ST?T wave changes with complaints of some chest pain with negative troponins. Exam Vital Signs Temp Pulse Resp BP Pulse Ox O2 Del Method 97.4 F 65 18 140/80 H 95 Room Air 04/26/25 12:00 04/26/25 12:00 04/26/25 12:00 04/26/25 12:00 04/26/25 12:00 04/26/25 12:00 Objective Labs 04/26/25 04:43 04/26/25 04:43 Labs: Laboratory Results - last 24 hr 04/26/25 04:43 WBC 7.8 RBC 3.14 L Hgb 8.6 L Hct 26.5 L MCV 84 MCH 27.4 MCHC 32.5 RDW Std Deviation 52.7 H Plt Count 192 Neut % (Auto) 77 Lymph % (Auto) 10 [place] % (Auto) 7 Eos % (Auto) 5 Baso % (Auto) 1 Neut # (Auto) 6.0 Lymph # (Auto) 0.8 L [place] # (Auto) 0.5 Eos # (Auto) 0.4 Baso # (Auto) 0.1 Immature Gran # (Auto) 0.02 H Absolute Nucleated RBC 0.00 Immature Gran % 0 Nucleated RBC % 0 PT 12.8 H INR 1.2 APTT 42.2 H D Sodium 135 L Potassium 3.9 Chloride 102 Carbon Dioxide 24.2 Anion Gap 9 BUN 20 Creatinine 1.7 H Estim Creat Clear Calc 40.0 L eGFR 41 L BUN/Creatinine Ratio 12 Glucose 93 Calculated Osmolality 272 L Calcium 8.9 Corrected Calcium 9.2 Phosphorus 3.6 Magnesium 2.3 Total Bilirubin 0.6 AST 24 ALT 19 Alkaline Phosphatase 118 H Total Protein 6.6 Albumin 3.6 Globulin 3.0 Albumin/Globulin Ratio 1.2 Quality Measures Quality Measures VTE prophylaxis and none Advance care planning discussed with:: patient Assessment & Plan Assessment Current Active Medications: Generic Name Dose Route Start Last Admin Trade Name Freq PRN Reason Stop Dose Admin Acetaminophen 650 mg 04/23/25 21:24 Acetaminophen 325 Mg Tablet PO 05/23/25 21:23 Q6H PRN Fever >101.5 Amiodarone HCl 200 mg 04/25/25 14:45 04/26/25 08:11 Amiodarone Hcl 200 Mg Tablet PO 05/25/25 14:44 200 mg BID SHONA Administration Aspirin 81 mg 04/24/25 13:00 04/26/25 08:11 Aspirin Ec 81 Mg Tabec PO 05/24/25 12:59 81 mg QDAY SHONA Administration Atorvastatin Calcium 40 mg 04/24/25 21:00 04/25/25 20:16 Atorvastatin Calcium 20 Mg Tablet PO 05/24/25 20:59 40 mg HS SHONA Administration Diazepam 10 mg 04/23/25 21:24 Diazepam Inj 5 Mg/Ml Vial 2 Ml IVP X1 PRN Breakthrough Agitation Folic Acid 1 mg 04/24/25 09:00 04/26/25 08:10 Folic Acid 1 Mg Tablet PO 05/24/25 08:59 1 mg QDAY SHONA Administration Ceftriaxone Sodium/Dextrose 1 gm in 50 mls @ 100 mls/hr 04/23/25 21:58 04/26/25 08:09 Rocephin/D5w 1gm Iv Premix IV 04/30/25 21:57 100 mls/hr QDAY SHONA Administration Levothyroxine Sodium 50 mcg 04/24/25 11:45 04/26/25 05:35 Levothyroxine Sodium 25 Mcg Tablet PO 05/24/25 11:44 50 mcg ACBR SHONA Administration Lorazepam 0.5 mg 04/23/25 21:24 Lorazepam 0.5 Mg Tablet PO 04/28/25 21:23 Q4HR PRN CIWA Score 2-6 Lorazepam 1 mg 04/23/25 21:30 Lorazepam 0.5 Mg Tablet PO 04/28/25 21:29 Q4HR PRN CIWA SCORE 7-11 Lorazepam 2 mg 04/23/25 21:30 04/25/25 02:05 Lorazepam 0.5 Mg Tablet PO 04/28/25 21:29 2 mg Q4HR PRN Administration CIWA SCORE 12-15 Metoprolol Succinate 25 mg 04/25/25 14:45 04/26/25 08:10 Metoprolol Succinate Xl 25 Mg Tabcr PO 05/25/25 14:44 25 mg QDAY SHONA Administration Montelukast Sodium 10 mg 04/25/25 21:00 04/25/25 20:16 Montelukast Sodium 10 Mg Tablet PO 05/25/25 20:59 10 mg QPM SHONA Administration Pantoprazole Sodium 40 mg 04/27/25 09:00 Pantoprazole 40 Mg Tablet PO 05/27/25 08:59 QDAY SHONA Rivaroxaban 10 mg/ Rivaroxaban 15 mg 04/25/25 15:00 04/26/25 08:10 5 mg PO 05/25/25 14:59 15 mg QDAY SHONA Administration Tamsulosin HCl 0.4 mg 04/24/25 12:00 04/26/25 08:10 Tamsulosin Hcl 0.4 Mg Capsule PO 05/24/25 11:59 0.4 mg QDAY SHONA Administration Thiamine HCl 100 mg 04/24/25 09:00 04/26/25 08:09 Thiamine Inj 100 Mg/Ml Vial 2 Ml IVP 05/24/25 08:59 100 mg QDAY SHONA Administration Plan A 74-year-old male with a significant past medical history of 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 The patient has completed radiation therapy under the care of Dr. Vasquez. He also has a history of atrial fibrillation hypertension, diabetes, hyperlipidemia, hypothyroidism, BPH, and dementia was admitted for V. tach versus a flutter with 2-1 block treatment and management. 1 A-flutter with a 2:1 block with underlying RBBB(as a DDx) 2 history of A-fib with RVR 3 hypertension 4 hyperlipidemia 6 diabetes(A1c 6.2) 7 metastatic squamous cell carcinoma 8 BPH 9 SITA 10 Iron deficiency anemia The patient presents with abnormal heart rate and upon EMS arrival was found to be ventricular tachycardia. However considering the patient history of A-fib, a flutter with 2-1 block and underlying right bundle branch block is more likely as noted on the rhythm strip Patient denies any chest pain, shortness of breath, palpitation which is atypical for V. tach, vitals were appeared to be stable Troponin x 1 was negative, Home medication is metoprolol, amiodarone, Xarelto ECHO:04/24/25: Summary 1. Normal Left ventricle size and systolic function is normal. Estimated ejection fraction is 50-55%. 2. The right ventricle not well visualized but function appears normal. 3. There is mild aortic valve regurgitation. Mild AV sclerosis without stenosis. 4. There is trace mitral valve regurgitation. Mild MAC. 5. There is trace tricuspid valve regurgitation. Recommendations Given the hx of A-fib with RVR it is possible that current rhythm during admission is A- flutter with 2 to 1 block, with RBBB presenting as wide-complex tachycardia Completed amiodarone drip, can be transition to home regimen 200 mg amiodarone twice daily for now, and can be switched to amiodarone 200 mg once a day after a month, continue with metoprolol succinate 25 mg , start on lasix 40mg daily on discharge. Continue engine monitor. Continue aspirin, Start on Eliquis 5 mg twice daily rather than Xarelto Oxygen support Strict control of risk factors such as hypertension, hyperlipidemia, diabetes Keep electrolytes within normal limits, magnesium above 2 and potassium above 4 Patient does have a history of dilated ascending aorta at 4.5 cm. He does have a bi developer Dr. Patel who he follows regularly. Patient did have cardiac catheterization done in 2020 which showed only mild CAD around 20% stenosis in the distal RCA and some mild diffuse disease. Given patient history of recent hospitalization for non-STEMI, arrhythmia event, coronary artery disease is a strong differential diagnosis. Patient will need further evaluation for coronary artery disease. Given the clinical presentation, risk factors patient will need extensive outpatient ischemic cardiac workup. However we need to follow-up with oncology Dr. Vasquez regarding the further treatment plan and prognosis before proceeding with any invasive procedures. The rest of the chronic condition to be managed by primary team. Patient care was discussed with attending physician Dr. Rukhsana Alba MD PGY-1 Attending Provider Attestation/Addendum I have personally seen and examined the patient separately on the above date of service and discussed the plan of care with the resident. I reviewed the resident Dr. Fausto Alba consultation progress note and agree with the resident findings and plan in the note above and have also edited the documentation to reflect my findings and plan. A 75-year-old male with a past medical history of metastatic squamous cell carcinoma stage IV of right inguinal region metastasis to bone and lung s/p radiation therapy and follows Dr. Vasquez, paroxysmal atrial fibrillation, mild CAD by cardiac cath in 2020, dilated dilated ascending thoracic aorta at 4.5 cm, essential hypertension, type 2 diabetes mellitus, hyperlipidemia, SITA on CKD, hydronephrosis with ureteral stent in 03/2025 at [facility], BPH, mild cognitive deficiency versus dementia, significant lymphadenopathy including para-aortic as well as, iliac and external iliac lymph nodes, history of alcohol abuse for many years 12-24 beers daily presented to the emergency department for further evaluation of abnormal and elevated heart rate. Initial EKG in the emergency department showed, wide-complex tachycardia with regular rhythm and mostly atrial flutter with 2 is to [address]- T changes., Mild elevated WBC at 11, BP 112/77 mmHg, rest of vital stable, mild SITA with creatinine of 1.8. ALP of 125, troponin was negative.. UA was positive with leuk esterase as well as WBC. CT head negative. Cardiology was consulted for further evaluation of wide-complex tachycardia with possible VT versus atrial fibrillation. Reviewed the EKG and patient mostly has atrial flutter with 2 is to 1 block and underlying right bundle branch block giving the appearance of wide-complex tachycardia. Unlikely VT given the heart rate and the presentation with hemodynamic stability and his history of previous paroxysmal atrial fibrillation. Recent admission to [facility] when patient had hydronephrosis status post ureteral stent and developed atrial fibrillation with RVR during this admission and was started on amiodarone at that point of time. Acute kidney injury with electrolyte abnormalities is probably provoking the atrial fibrillation/flutter with RVR. Started on amiodarone drip and will completed as per protocol. Will need to be on amiodarone 200 mg twice daily as the patient needs complete loading. After a month patient should be converted to amiodarone 200 mg once daily. Keep potassium greater than 4 and magnesium greater than 2.2. Continue telemetry. Heparin drip for anticoagulation and eventually can be changed to Eliquis 5 mg twice daily rather than Xarelto. Echo ordered and showed normal LV function with the same as before [facility]. Patient does have a history of dilated ascending aorta at 4.5 cm. He does have a bi developer Dr. Patel who he follows regularly. Patient did have cardiac catheterization done in 2020 which showed only mild CAD around 20% stenosis in the distal RCA and some mild diffuse disease. He will need further ischemic workup given the nonspecific ST-T changes as well as some chest pain which can be completed as outpatient as troponins have been negative. Management of rest of the medical conditions as per primary team and other consultants. Thank you for the consult and allowing me to participate in the care of the patient. Cardiology will continue to follow. Jakob Milian M.D. Interventional Cardiology
--- NOTE | 2025-04-26 15:07 | ESPR_ITS ---
<Statement entered by Angelo Tellez MD - 04/26/25 17:53> Patient seen and examined at bedside. I discussed and supervised with the engineer intern physician who took care of this patient. I personally saw and examined the patient. I agree with most of the assessment and plan. Pending PT eval. Kidney function unchanged, will give IV fluid. Plan of care discussed with attending Dr. Faulkner. Angelo Tellez MD PGY-2 Documentation for date of: 04/26/25 Subjective Subjective Interval history: Patient was seen and examined at bedside. No acute events took place overnight. Patient has been resting well. His lethargy is improved. Denies chest pain right now and denies shortness of breath. Patient reports right upper extremity pain due to infiltration from the amiodarone drip yesterday, which has since improved. Admits to lower abdominal pain, pain with urination and bowel movements. will wait for normalization of kidney fx in the AM lab Anticipate discharge within the next 24 hours after PT evaluation. Will need home health. Ordered magnesium citrate to stimulate bowel movements. Exam Vital Signs Temp Pulse Resp BP Pulse Ox O2 Del Method 97.4 F 65 18 140/80 H 95 Room Air 04/26/25 12:00 04/26/25 12:00 04/26/25 12:00 04/26/25 12:00 04/26/25 12:00 04/26/25 12:00 Narrative Exam GENERAL: no acute distress, AAO x2, well nourished. HEENT: Head AT/ NC. Mucous membranes moist. PERRL. NECK: Supple, no lymphadenopathy, no carotid bruits. CARDIOVASCULAR: RRR. Normal S1/S2, No m/r/g. No pitting edema of bilateral LEs. RESPIRATORY: CTAB. No wheezing, rhonchi, crackles. GASTROINTESTINAL: Abdomen soft, non tender no palpable masses. Bowel sounds present in all 4 quadrants. MUSCULOSKELETAL:? No cyanosis or edema, no visible joint swelling. NEUROLOGICAL: CN II-XII grossly intact. No focal deficits. Sensation intact, symmetric. PSYCHIATRIC: Awake and alert, not agitated, normal mood and affect. INTEGUMENTARY: No obvious rashes, no jaundice, normal turgor. Objective Labs 04/28/25 04:35 04/28/25 04:35 Labs: Laboratory Results - last 24 hr 04/26/25 04:43 WBC 7.8 RBC 3.14 L Hgb 8.6 L Hct 26.5 L MCV 84 MCH 27.4 MCHC 32.5 RDW Std Deviation 52.7 H Plt Count 192 Neut % (Auto) 77 Lymph % (Auto) 10 [place] % (Auto) 7 Eos % (Auto) 5 Baso % (Auto) 1 Neut # (Auto) 6.0 Lymph # (Auto) 0.8 L [place] # (Auto) 0.5 Eos # (Auto) 0.4 Baso # (Auto) 0.1 Immature Gran # (Auto) 0.02 H Absolute Nucleated RBC 0.00 Immature Gran % 0 Nucleated RBC % 0 PT 12.8 H INR 1.2 APTT 42.2 H D Sodium 135 L Potassium 3.9 Chloride 102 Carbon Dioxide 24.2 Anion Gap 9 BUN 20 Creatinine 1.7 H Estim Creat Clear Calc 40.0 L eGFR 41 L BUN/Creatinine Ratio 12 Glucose 93 Calculated Osmolality 272 L Calcium 8.9 Corrected Calcium 9.2 Phosphorus 3.6 Magnesium 2.3 Total Bilirubin 0.6 AST 24 ALT 19 Alkaline Phosphatase 118 H Total Protein 6.6 Albumin 3.6 Globulin 3.0 Albumin/Globulin Ratio 1.2 Quality Measures Quality Measures VTE prophylaxis and none Advance care planning discussed with:: patient Assessment & Plan Assessment Current Active Medications: Generic Name Dose Route Start Last Admin Trade Name Freq PRN Reason Stop Dose Admin Acetaminophen 650 mg 04/23/25 21:24 Acetaminophen 325 Mg Tablet PO 05/23/25 21:23 Q6H PRN Fever >101.5 Amiodarone HCl 200 mg 04/25/25 14:45 04/26/25 08:11 Amiodarone Hcl 200 Mg Tablet PO 05/25/25 14:44 200 mg BID SHONA Administration Aspirin 81 mg 04/24/25 13:00 04/26/25 08:11 Aspirin Ec 81 Mg Tabec PO 05/24/25 12:59 81 mg QDAY SHONA Administration Atorvastatin Calcium 40 mg 04/24/25 21:00 04/25/25 20:16 Atorvastatin Calcium 20 Mg Tablet PO 05/24/25 20:59 40 mg HS SHONA Administration Diazepam 10 mg 04/23/25 21:24 Diazepam Inj 5 Mg/Ml Vial 2 Ml IVP X1 PRN Breakthrough Agitation Folic Acid 1 mg 04/24/25 09:00 04/26/25 08:10 Folic Acid 1 Mg Tablet PO 05/24/25 08:59 1 mg QDAY SHONA Administration Ceftriaxone Sodium/Dextrose 1 gm in 50 mls @ 100 mls/hr 04/23/25 21:58 04/26/25 08:09 Rocephin/D5w 1gm Iv Premix IV 04/30/25 21:57 100 mls/hr QDAY SHONA Administration Levothyroxine Sodium 50 mcg 04/24/25 11:45 04/26/25 05:35 Levothyroxine Sodium 25 Mcg Tablet PO 05/24/25 11:44 50 mcg ACBR SHONA Administration Lorazepam 0.5 mg 04/23/25 21:24 Lorazepam 0.5 Mg Tablet PO 04/28/25 21:23 Q4HR PRN CIWA Score 2-6 Lorazepam 1 mg 04/23/25 21:30 Lorazepam 0.5 Mg Tablet PO 04/28/25 21:29 Q4HR PRN CIWA SCORE 7-11 Lorazepam 2 mg 04/23/25 21:30 04/25/25 02:05 Lorazepam 0.5 Mg Tablet PO 04/28/25 21:29 2 mg Q4HR PRN Administration CIWA SCORE 12-15 Metoprolol Succinate 25 mg 04/25/25 14:45 04/26/25 08:10 Metoprolol Succinate Xl 25 Mg Tabcr PO 05/25/25 14:44 25 mg QDAY SHONA Administration Montelukast Sodium 10 mg 04/25/25 21:00 04/25/25 20:16 Montelukast Sodium 10 Mg Tablet PO 05/25/25 20:59 10 mg QPM SHONA Administration Pantoprazole Sodium 40 mg 04/27/25 09:00 Pantoprazole 40 Mg Tablet PO 05/27/25 08:59 QDAY SHONA Rivaroxaban 10 mg/ Rivaroxaban 15 mg 04/25/25 15:00 04/26/25 08:10 5 mg PO 05/25/25 14:59 15 mg QDAY SHONA Administration Tamsulosin HCl 0.4 mg 04/24/25 12:00 04/26/25 08:10 Tamsulosin Hcl 0.4 Mg Capsule PO 05/24/25 11:59 0.4 mg QDAY SHONA Administration Thiamine HCl 100 mg 04/24/25 09:00 04/26/25 08:09 Thiamine Inj 100 Mg/Ml Vial 2 Ml IVP 05/24/25 08:59 100 mg QDAY SHONA Administration Plan 75 year old male with history of atrial fibrillation, hypertension, diabetes, hyperlipidemia, hypothyroidism, BPH, squamous cell carcinoma malignant neoplasm with liver lung and bone metastasis and lower limb lymph nodes undergoing chemotherapy presents to the ED BIBA from [facility] for evaluation of abnormal heart rhythm today, admitted for a fib with rvr. #A fib with RVR, history of #?V. tach episode, by history EKG (in ED chart) HR 146 QTC 413. Amiodarone drip started in ED HR resolved from 150 to 65. Patient in sinus rhythm today, going in and out of A-fib likely, possible V. tach episode at custodial facility Trops negative and BNP 234 Echocardiogram showed normal left ventricular size and systolic function. EF 50 to 55%. Mild aortic valve regurg. RV size and fx normal as it appeared. In the context of history of A-fib, A-flutter with 2-1 block and underlying right bundle branch block is more likely to be be the predominant rhythm at presentation Patient denies any chest pain, shortness of breath, palpitation which is atypical for V. tach, vitals were appeared to be stable. Plan: - Patient completed amiodarone drip, and transitioned to home regiment amiodarone 200 mg twice daily. - Decrease amiodarone to 200 mg daily after a month from discharge. - Continued with metoprolol succinate 25 mg Qdaily - Will switch from Xeralto 15mg Qday to Eliquis 5 mg bid - Consulted cardiology, appreciate recommendations #Acyte hypoxic respiratory failure #Pneumonia Rt base #hx of squamous cell carcinoma malignant neoplasm with liver lung and bone metastasis and lower limb lymph nodes Ddx CAP atypicals gram negatives, or pulm mets NH staff reported the patient had complained of feeling short of breath and saturating 88% on room air. Has lung pulmonary metastases. Rales heard on physical exam. CXR pneumonia right base, could be volume overload. Plan: - No antibiotics at the moment - patient just completed augmentin at [facility] - Follow-up sputum culture #SITA Cr 1.7/1.8.BUN 20, and BUN/Cr 12. As such likely related to be intrarenal etiology. Plan: - Follow renal panel in a.m. - If creatinine is therapeutic we will consider renal ultrasound to rule out CKD #UTI reports dysuria. Suprapubic tenderness on physical exam. UA Turbid LE + 29 RBC 20 WBC +2 calcium oxalate. No stones seen on imaging. Please consider CTAP for best visualization or concern for stones is enhanced. U ctx negative 04/26, however urine sample was collected after initiation of antibiotic therapy. Plan: -Ceftriaxone 1g IV QD, will complete a 5-day course 04/23-04/27 #Alcohol dependence Patient drinks 12-24 beers/day has never had alcohol withdrawals. Plan: -CIWA -Folic acid -Thiamine #Hypertension Patient family unable to assist with medications Plan - Hold antihypertensive for now #Prediabetic Patient was noted to be pre-diabetic. A1c 6.2 Plan: -Diabetes education #Hyperlipidemia Patient family unable to assist with medications Plan - Lipid panel shows LDL 74, start atorvastatin 40 nightly #hx hypothyroidism Patient family unable to assist with medications Plan - Resume home levothyroxine #hx of BPH Patient family unable to assist with medications Plan - Resume home tamsulosin Health Maintenance: Code status: Full DVT prophylaxis: Heparin GTT GI prophylaxis: protonix Diet: carb consistent [place]: yes Lines: PIV Supplemental O2: NC Disposition: Tele bed afib with RVR Case discussed with Attending Physician Dr. Ernie Ahn MD Internal Medicine PGY-2 Disclaimer: This note was dictated by speech recognition. Minor errors in instructional services librarian may be present due to voice recognition software. Attending Provider Attestation/Addendum I have discussed and was present for the essential components of the history, physical examination, diagnosis, and treatment plan with the resident. I agree with the patient's care as documented by the resident and amended herein by me. Caesar Faulkner DO. Although this document has been carefully reviewed, there may still be some phonetic and other typographical errors. These errors are purely grammatical due to imperfections in the software program and should not be construed in any way to compromise the substance of the patient's medical care during this visit.
[2025-04-26] MEDS: SODIUM CHLORIDE 0.9% 500 ML 500 ML 250 ML IV (17:24)
[2025-04-26] MEDS: MONTELUKAST SODIUM 10 MG TABLET PO (20:30)
[2025-04-26] MEDS: ATORVASTATIN CALCIUM 20 MG TABLET 40 MG PO (20:30)
[2025-04-27] VITALS (11 sets, daily range): BP systolic 98–122; BP diastolic 66–98; PULSE 66–135; RESP 16–97; TEMP 36.1–36.4; O2SAT 97–99; BMI 30.7; BMI 30.5
--- NOTE | 2025-04-27 04:35 | EKG_ITS ---
[facility] Test Date: 2025-04-27 Pat Name: SIDNEY KWON [facility] Gender: Male [place]: REX : 1950 Requested By: Daphnie Mcclelland Order Number: [id number] Reading MD: Daphnie Mcclelland Measurements Intervals [place] Rate: 129 P: -72 AL: 209 QRS: 264 QRSD: 152 T: 76 QT: 359 QTc: 527 Interpretive Statements ECTOPIC ATRIAL TACHYCARDIA MARKED RIGHT AXIS DEVIATION RIGHT BUNDLE BRANCH BLOCK POSSIBLE SEPTAL MYOCARDIAL INFARCTION , PROBABLY OLD Compared to ECG 04/24/2025 11:40:57 Right-axis deviation now present Right bundle-branch block now present Myocardial infarct finding now present Sinus rhythm no longer present Intraventricular conduction delay no longer present /store/S0/[id number].pdf
[2025-04-27] MEDS: LEVOTHYROXINE SODIUM 25 MCG TABLET 50 MCG PO (05:39)
[2025-04-27 05:42] LABS: Basophils # (Auto) 0.1 Thou/mm3 (0.0-0.2); Basophils % (Auto) 1 % (0-2.5); Eosinophils # (Auto) 0.3 Thou/mm3 (0.0-0.5); Eosinophils % (Auto) 3 % (0-10); Hematocrit 29.9 % (41.0-53.0); Hemoglobin 9.7 g/dL (13.5-16.0); Immature Granulocytes Auto 0.04 Thou/mm3 (0.00-0.00); Lymphocytes # (Auto) 0.9 Thou/mm3 (1.0-4.8); Lymphocytes % (Auto) 9 % (10-50); Mean Corpuscular HGB Conc 32.4 g/dl (31.0-37.0); Mean Corpuscular Hemoglobin 27.3 pg (25.0-35.0); Mean Corpuscular Volume 84 fL (80-100); Monocytes # (Auto) 0.6 Thou/mm3 (0.0-0.8); Monocytes % (Auto) 6 % (0-12); Neutrophils # (Auto) 7.4 Thou/mm3 (1.8-7.7); Neutrophils % (Auto) 80 % (37-80); Nucleated Red Blood Cell # 0.00 Thou/mm3 (0.00-0.00); Nucleated Red Blood Cell % 0 /100 WBC (0); Platelet Count 224 Thou/mm3 (140-440); RDW Standard Deviation 51.6 fL (35.1-43.9); Red Blood Count 3.55 Miln/mm3 (4.50-5.90); White Blood Count 9.2 Thou/mm3 (3.8-10.6)
[2025-04-27 06:19] LABS: Alanine Aminotransferase 39 U/L (10-49); Albumin, Serum 4.0 gm/dL (3.4-4.8); Albumin/Globulin Ratio 1.2 (1.2-2.2); Alkaline Phosphatase 170 U/L (46-116); Anion Gap 10 (7-16); Aspartate Amino Transferase 57 U/L (0-34); BUN/Creatinine Ratio 11 Ratio (12-20); Bilirubin,Total 0.7 mg/dL (0.3-1.2); Blood Urea Nitrogen 18 mg/dL (9-23); Calcium 8.7 mg/dL (8.3-10.6); Calcium (Corrected) 8.7 mg/dL (8.5-10.1); Carbon Dioxide 25.2 mMol/L (20.0-31.0); Chloride 102 mMol/L (98-107); Creatinine (Component) 1.6 mg/dL (0.6-1.3); Estimated Creatinine Clearance 42.5 mL/min (>60); Globulin 3.4 gm/dL (2.3-3.5); Glucose 104 mg/dL (74-106); Magnesium 2.4 mg/dL (1.6-2.6); Osmolality,Calculated 275 (275-295); Phosphorous 2.7 mg/dL (2.4-5.1); Potassium 4.0 mMol/L (3.4-5.1); Sodium 137 mMol/L (136-145); Total Protein 7.4 gm/dL (5.7-8.2); eGFR 44 See Note
[2025-04-27] MEDS: METOPROLOL SUCCINATE XL 25 MG TABCR PO ×2 (08:40→11:21)
[2025-04-27] MEDS: PANTOPRAZOLE 40 MG TABLET PO (08:41)
[2025-04-27] MEDS: AMIODARONE HCL 200 MG TABLET PO ×2 (08:41→20:38)
[2025-04-27] MEDS: APIXABAN 2.5 MG TABLET 5 MG PO ×2 (08:41→20:38)
[2025-04-27] MEDS: TAMSULOSIN HCL 0.4 MG CAPSULE PO (08:41)
[2025-04-27] MEDS: ASPIRIN EC 81 MG TABEC PO (08:42)
[2025-04-27] MEDS: FOLIC ACID 1 MG TABLET PO (08:42)
[2025-04-27] MEDS: cefTRIAXone/D5w 1gm IV premix 1 GM/50 ML BAG IV (08:43)
[2025-04-27] MEDS: THIAMINE INJ 100 MG/ML VIAL 2 ML IVP (08:43)
--- NOTE | 2025-04-27 09:26 | PC.SS ---
Follow up note: Waiting for SITA to improve. Working with PT.
--- NOTE | 2025-04-27 10:56 | PC.SS ---
Addendum entered by Tamia Altamirano 04/27/25 12:34: SS spoke to who provided patient's physical address: [address] [place] [address]. SS met with Mil from PT who explained is requesting a hospital bed and commode. SS has DME order using [employer]. Original Note: SS spoke to by phone regarding patient's d/c plan to return to [facility] or home. refuses for pt to return to [facility]. Per , pt will be returning home and she will be caring for pt at home. is requesting HH and does not have presence. Per , pt followed up with PCP, Suzanne Novak from [facility] in February,
--- NOTE | 2025-04-27 11:44 | EKG_ITS ---
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 : 1950 Requested By: Lizette Cedeño Order Number: [id number] Reading MD: Lizette Cedeño Measurements Intervals [place] Rate: 75 P: 13 DC: 181 QRS: 266 QRSD: 158 T: 57 QT: 430 QTc: 482 Interpretive Statements SINUS RHYTHM INTRAVENTRICULAR CONDUCTION DELAY RIGHT VENTRICULAR HYPERTROPHY PROBABLE SEPTAL MYOCARDIAL INFARCTION , PROBABLY OLD Compared to ECG 04/27/2025 04:46:25 Intraventricular conduction delay now present Right ventricular hypertrophy now present Right-axis deviation no longer present Right bundle-branch block no longer present Myocardial infarct finding still present /store/S0/[id number].pdf
--- NOTE | 2025-04-27 12:57 | ESPR_ITS ---
Documentation for date of: 04/27/25 Subjective Subjective Interval history: Patient seen and examined at bedside. Overnight patient was reported to have a atrial tachycardia rate 130s and was asymptomatic, patient reports he was sleeping at the time and was unaware. No interventions done at the time. In a.m., patient remains asymptomatic no complaints, denies chest pain, shortness of breath, or palpitations. Metoprolol succinate increased to 50 mg with parameters SBP above 90. Post metoprolol succinate 50 mg, repeat EKG shows sinus rhythm rate 75 and blood pressure at bedside 120/70. 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 Patient is currently on Libtayo infusions q3wk for chemo, last session 02/2025 due to recent hospitalizations. Regarding SITA, recent admitted to [facility] with renal operation done per , questionable CKD history and current creatinine may be new baseline. Will consider urine electrolytes or renal ultrasound if creatinine up trends. Completed ceftriaxone course for UTI today. CIWA discontinued as CIWA has been 0 of late. Pending PT eval. Exam Vital Signs Temp Pulse Resp BP Pulse Ox O2 Del Method 96.9 F 135 H 18 113/85 H 97 Room Air 04/27/25 12:00 04/27/25 12:00 04/27/25 12:00 04/27/25 12:00 04/27/25 12:00 04/27/25 12:00 Narrative Exam GENERAL: AOx2, no acute distress, sitting up comfortably HEENT: mucous membranes moist, bilateral sclera anicteric CARDIOVASCULAR: irregular rate and regular rhythm, S1/S2 present, no murmurs appreciated PULMONARY: clear to auscultation bilaterally, no rales/rhonchi/wheezes ABDOMINAL: soft, non-tender, non-distended, no rebound/guarding, bowel sounds present EXTREMITIES: no peripheral edema SKIN: warm and dry, intact, no rashes NEURO: CN II-XII grossly intact, no focal deficits, alert, following commands Objective Labs 04/27/25 04:28 04/27/25 04:28 Labs: Laboratory Results - last 24 hr 04/27/25 04:28 WBC 9.2 RBC 3.55 L Hgb 9.7 L Hct 29.9 L MCV 84 MCH 27.3 MCHC 32.4 RDW Std Deviation 51.6 H Plt Count 224 D Neut % (Auto) 80 Lymph % (Auto) 9 L Mccreary % (Auto) 6 Eos % (Auto) 3 Baso % (Auto) 1 Neut # (Auto) 7.4 Lymph # (Auto) 0.9 L Mccreary # (Auto) 0.6 Eos # (Auto) 0.3 Baso # (Auto) 0.1 Immature Gran # (Auto) 0.04 H Absolute Nucleated RBC 0.00 Immature Gran % 0 Nucleated RBC % 0 Sodium 137 Potassium 4.0 Chloride 102 Carbon Dioxide 25.2 Anion Gap 10 BUN 18 Creatinine 1.6 H Estim Creat Clear Calc 42.5 L eGFR 44 L BUN/Creatinine Ratio 11 L Glucose 104 Calculated Osmolality 275 Calcium 8.7 Corrected Calcium 8.7 Phosphorus 2.7 Magnesium 2.4 Total Bilirubin 0.7 AST 57 H ALT 39 Alkaline Phosphatase 170 H D Total Protein 7.4 Albumin 4.0 Globulin 3.4 Albumin/Globulin Ratio 1.2 Quality Measures Quality Measures VTE prophylaxis and none Advance care planning discussed with:: patient Assessment & Plan Assessment Current Active Medications: Generic Name Dose Route Start Last Admin Trade Name Freq PRN Reason Stop Dose Admin Acetaminophen 650 mg 04/23/25 21:24 Acetaminophen 325 Mg Tablet PO 05/23/25 21:23 Q6H PRN Fever >101.5 Amiodarone HCl 200 mg 04/25/25 14:45 04/27/25 08:41 Amiodarone Hcl 200 Mg Tablet PO 05/25/25 14:44 200 mg BID SHONA Administration Apixaban 5 mg 04/27/25 09:00 04/27/25 08:41 Apixaban 2.5 Mg Tablet PO 05/27/25 08:59 5 mg BID SHONA Administration Aspirin 81 mg 04/24/25 13:00 04/27/25 08:42 Aspirin Ec 81 Mg Tabec PO 05/24/25 12:59 81 mg QDAY SHONA Administration Atorvastatin Calcium 40 mg 04/24/25 21:00 04/26/25 20:30 Atorvastatin Calcium 20 Mg Tablet PO 05/24/25 20:59 40 mg HS SHONA Administration Diazepam 10 mg 04/23/25 21:24 Diazepam Inj 5 Mg/Ml Vial 2 Ml IVP X1 PRN Breakthrough Agitation Folic Acid 1 mg 04/24/25 09:00 04/27/25 08:42 Folic Acid 1 Mg Tablet PO 05/24/25 08:59 1 mg QDAY SHONA Administration Ceftriaxone Sodium/Dextrose 1 gm in 50 mls @ 100 mls/hr 04/23/25 21:58 04/27/25 08:43 Rocephin/D5w 1gm Iv Premix IV 04/30/25 21:57 100 mls/hr QDAY SHONA Administration Levothyroxine Sodium 50 mcg 04/24/25 11:45 04/27/25 05:39 Levothyroxine Sodium 25 Mcg Tablet PO 05/24/25 11:44 50 mcg ACBR SHONA Administration Metoprolol Succinate 25 mg 04/25/25 14:45 04/27/25 08:40 Metoprolol Succinate Xl 25 Mg Tabcr PO 05/25/25 14:44 25 mg QDAY SHONA Administration Montelukast Sodium 10 mg 04/25/25 21:00 04/26/25 20:30 Montelukast Sodium 10 Mg Tablet PO 05/25/25 20:59 10 mg QPM SHONA Administration Pantoprazole Sodium 40 mg 04/27/25 09:00 04/27/25 08:41 Pantoprazole 40 Mg Tablet PO 05/27/25 08:59 40 mg QDAY SHONA Administration Tamsulosin HCl 0.4 mg 04/24/25 12:00 04/27/25 08:41 Tamsulosin Hcl 0.4 Mg Capsule PO 05/24/25 11:59 0.4 mg QDAY SHONA Administration Thiamine HCl 100 mg 04/24/25 09:00 04/27/25 08:43 Thiamine Inj 100 Mg/Ml Vial 2 Ml IVP 05/24/25 08:59 100 mg QDAY SHONA Administration Plan 75 year old male with history of atrial fibrillation, hypertension, diabetes, hyperlipidemia, hypothyroidism, BPH, 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 #A fib with RVR, history of #?V. tach episode, by history EKG (in ED chart) HR 146 QTC 413. Amiodarone drip started in ED HR resolved from 150 to 65. Patient in sinus rhythm today, going in and out of A-fib likely, possible [facility] Trops negative and BNP 234 Echocardiogram showed normal left ventricular size and systolic function. EF 50 to 55%. Mild aortic valve regurg. RV size and fx normal as it appeared. In the context of history of A-fib, A-flutter with 2-1 block and underlying right bundle branch block is more likely to be be the predominant rhythm at presentation Patient denies any chest pain, shortness of breath, palpitation which is atypical for V. tach, vitals were appeared to be stable. 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 Has lung pulmonary metastases. Rales heard on physical exam. CXR pneumonia right base, could be volume overload. 04/[address] Alvarez who reports patient is on Libtayo 300 mg IV infusion over 30 minutes, last in 02/2025. Patient is diagnosed with squamous cell carcinoma with inguinal mass with metastasis to liver and bone, however they are unsure if it is skin cancer with metastasis to the inguinal region versus anorectal carcinoma however recent colonoscopy negative Plan: - No antibiotics at the moment - patient just completed augmentin at [facility] - Follow-up sputum culture, Gram stain so far-no organisms seen #SIAT on CKD? Cr 1.7/1.8.BUN 20, and BUN/Cr 12. Per [facility] discharge papers patient admitted previously for SITA however no values written, baseline still unclear. Ddx: CKD although eGFR greater than 60 11/2024, prerenal etiology given pneumonia found to right base versus cancer Plan: - CTM Cr - Consider ultrasound and/or urine electrolytes if creatinine starts uptrending again - Avoid nephrotoxic agents and renally dose meds #UTI reports dysuria. Suprapubic tenderness on physical exam. UA Turbid LE + 29 RBC 20 WBC +2 calcium oxalate. No stones seen on imaging. Please consider CTAP for best visualization or concern for stones is enhanced. U ctx negative 04/26, however urine sample was collected after initiation of antibiotic therapy. Ceftriaxone (04/23 to 04/27) Plan: -CTM for urinary symptoms #Alcohol dependence Patient drinks 12-24 beers/day has never had alcohol withdrawals. Plan: -CIWA discontinued -Folic acid -Thiamine #Hypertension Patient family unable to assist with medications Plan - Hold antihypertensive for now #Prediabetic Patient was noted to be pre-diabetic. A1c 6.2 Plan: -Diabetes education #Hyperlipidemia Patient family unable to assist with medications Plan - Lipid panel shows LDL 74, start atorvastatin 40 nightly #hx hypothyroidism Patient family unable to assist with medications Plan - Resume home levothyroxine #hx of BPH Patient family unable to assist with medications Plan - Resume home tamsulosin Health Maintenance: Code status: Full DVT prophylaxis: Eliquis 5 mg BID GI prophylaxis: protonix Diet: carb consistent Lines: PIV Supplemental O2: NC Disposition: Tele bed afib with RVR control and PT eval Case discussed with Attending Physician Dr. Ernie Cedeño, DO Internal Medicine PGY-1 Senior Resident Attestation: Overnight patient's heart rate was in 130s, and metoprolol succinate dose was increased to 50 mg daily. He is heart rate stabilized, and was sinus rhythm. We will watch overnight, and DC tomorrow. I discussed with and supervised the internal medicine nurse physician involved in the care of this patient. I personally saw and examined the patient and discussed the assessment and plan with the entire medicine team, including my attending. I agree with the assessment and plan as documented above. Anjel Zamarripa MD PGY3 Internal Medicine Attending Provider Attestation/Addendum Heart rate still in the 130s during rounds. Adjusted dose of metoprolol was started. Repeat EKG this afternoon showed sinus rhythm in the 70s. Continue to monitor patient's heart rhythm. Check blood pressure. No orthostatic vitals if indicated. Patient has squamous cell carcinoma involving the right inguinal area. He has metastatic disease. He will follow-up with Dr. Mercedes from [place]. He was contacted by housestaff earlier and provided more information, ? unknown primary site. Discussed with staff.
--- NOTE | 2025-04-27 13:08 | ESPR_ITS ---
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 The patient has completed radiation therapy under the care of Dr. Vasquez. He also has a history of atrial fibrillation hypertension, diabetes, hyperlipidemia, hypothyroidism, BPH, and dementia. The patient presents to the emergency department for evaluation of an abnormal heart rate. The patient is alert and oriented only to person and birthday and is a poor historian, with baseline confusion and dementia. He denies chest pain, palpitations, shortness of breath, dizziness, paroxysmal nocturnal dyspnea , or other associated symptoms. snf staff reported that the patient had complained of feeling short of breath and desaturated to 88%. He was placed on oxygen, and EMS was called. On EMS arrival, the patient was found to be in ventricular tachycardia, though he denied any associated symptoms such as chest pain or shortness of breath. The patient was recently admitted to [facility] for A-fib RVR, NSTEMI and SITA. Additional history is unavailable at this time. Recent Imaging: Chest CT (03/26/2025): Mild aneurysmal dilatation of the ascending thoracic aorta. Left lateral para-aortic lymphadenopathy has improved compared to the prior scan (August 2024). Notably, the left common iliac node measures 23 mm (compared to 11 mm in August 2024) and additional external iliac lymph nodes, with the largest measuring 25 mm. Lymph [place] mass in the right groin measures 4 cm (down from 7 cm in August 2024). ED Course: Vitals: BP 112/77 mmHg, HR 150 bpm, RR 20, Temp 98.5?F, O2 saturation 98% on room air. Labs:WBC 10.9 x 10?/?L,Hemoglobin 10.6 g/dL, Coagulation profile within normal limits.BUN 22 mg/dL, Creatinine 1.8 mg/dL (Creatinine Clearance 33.3 mL/min),AST 38 U/L, ALP 125 U/L,Troponin: Negative Urinalysis: Turbid, leukocyte esterase (LE) +, 29 RBCs, 20 WBCs, calcium oxalate crystals. Imaging: Head CT: No acute hemorrhage, mass effect, or midline shift.,Chest X- ray: Pneumonia in the right base. EKG: Vtach vs Aflutter with 2;2;1 block, underlying RBBB. HR 146 bpm, QTc 413 ms. Treatment in ED:1 L Normal Saline bolus. Ziprasidone 10 mg for agitation..Amiodarone drip started. Lorazepam 1 mg x2 for anxiety/agitation. Amiodarone 200 mg IV bolus. Past medical history as above Home Medications:Amiodarone 200 mg daily.Aspirin 81 mg daily.Losartan 50 mg daily.Metoprolol tartrate 25 mg twice daily.Quetiapine 50 mg twice daily.Tamsulosin 0.4 mg daily.Tramadol (unspecified dosing).Xarelto 20 mg daily. Past Surgical History:Patient is unable to provide any surgical history at this time. Allergies: NKDA. Family History:The patient denies any history of heart disease in the family. Social History:The patient lives with his and has a history of alcohol use, consuming 12-24 beers daily. He denies smoking or recreational drug use. 04/25/2025. No acute overnight. Patient was seen and examined. On telemetry patient is found sinus rhythm, patient completed amiodarone drip, overnight patient had A-fib with RVR, received additional metoprolol tartrate 25 mg, recommend to restart home metoprolol tartrate 25 mg twice daily and amiodarone 200 mg twice daily. Can be transitioned from heparin drip to Xarelto. Patient will need extensive cardiac ischemic workup outpatient including [facility]. However will need to follow-up with oncology regarding the treatment plan and prognosis before proceeding with invasive procedures. 04/26/2025 No acute overnight events. Patient was seen and examined at bedside and found to be in normal sinus rhythm on telemetry. Currently on Xarelto 15 mg, tamsulosin 0.4 mg, amiodarone 200 mg twice daily. He needs workup cardiology workup from outpatient given his significant cardiac history and multiple episodes of A-fib with RVR and nonspecific ST?T wave changes with complaints of some chest pain with negative troponins. 04/27/2025 overnight patient's heart rate noted to be in RVR in the 130s, Telemetry reviewed this morning patient noted to be in RVR heart rate 125. Patient seen at bedside has no current complaints. Discussed with primary team regarding increasing the dose of metoprolol succinate to 50 mg daily. Continue amiodarone 200 mg twice daily. Patient was switched from Xarelto to Eliquis continue Eliquis 5 twice daily. Continue atorvastatin for LDL control. Continue aspirin as well. Started on Lasix 40 mg p.o. daily. Exam Vital Signs Temp Pulse Resp BP Pulse Ox O2 Del Method 96.9 F 135 H 18 113/85 H 97 Room Air 04/27/25 12:00 04/27/25 12:00 04/27/25 12:00 04/27/25 12:00 04/27/25 12:00 04/27/25 12:00 Narrative Exam GENERAL: AOx2, no acute distress, sitting up comfortably HEENT: mucous membranes moist, bilateral sclera anicteric CARDIOVASCULAR: irregular rate and regular rhythm, S1/S2 present, no murmurs appreciated PULMONARY: clear to auscultation bilaterally, no rales/rhonchi/wheezes ABDOMINAL: soft, non-tender, non-distended, no rebound/guarding, bowel sounds present EXTREMITIES: 1+ bilateral lower extremity edema SKIN: warm and dry, intact, no rashes NEURO: CN II-XII grossly intact, no focal deficits, alert, following commands Objective Labs 04/28/25 04:35 04/28/25 04:35 Labs: Laboratory Results - last 24 hr 04/27/25 04:28 WBC 9.2 RBC 3.55 L Hgb 9.7 L Hct 29.9 L MCV 84 MCH 27.3 MCHC 32.4 RDW Std Deviation 51.6 H Plt Count 224 D Neut % (Auto) 80 Lymph % (Auto) 9 L [place] % (Auto) 6 Eos % (Auto) 3 Baso % (Auto) 1 Neut # (Auto) 7.4 Lymph # (Auto) 0.9 L [place] # (Auto) 0.6 Eos # (Auto) 0.3 Baso # (Auto) 0.1 Immature Gran # (Auto) 0.04 H Absolute Nucleated RBC 0.00 Immature Gran % 0 Nucleated RBC % 0 Sodium 137 Potassium 4.0 Chloride 102 Carbon Dioxide 25.2 Anion Gap 10 BUN 18 Creatinine 1.6 H Estim Creat Clear Calc 42.5 L eGFR 44 L BUN/Creatinine Ratio 11 L Glucose 104 Calculated Osmolality 275 Calcium 8.7 Corrected Calcium 8.7 Phosphorus 2.7 Magnesium 2.4 Total Bilirubin 0.7 AST 57 H ALT 39 Alkaline Phosphatase 170 H D Total Protein 7.4 Albumin 4.0 Globulin 3.4 Albumin/Globulin Ratio 1.2 Quality Measures Quality Measures VTE prophylaxis and none Advance care planning discussed with:: patient and spouse Assessment & Plan Assessment Current Active Medications: Generic Name Dose Route Start Last Admin Trade Name Freq PRN Reason Stop Dose Admin Acetaminophen 650 mg 04/23/25 21:24 Acetaminophen 325 Mg Tablet PO 05/23/25 21:23 Q6H PRN Fever >101.5 Amiodarone HCl 200 mg 04/25/25 14:45 04/27/25 08:41 Amiodarone Hcl 200 Mg Tablet PO 05/25/25 14:44 200 mg BID SHONA Administration Apixaban 5 mg 04/27/25 09:00 04/27/25 08:41 Apixaban 2.5 Mg Tablet PO 05/27/25 08:59 5 mg BID SHONA Administration Aspirin 81 mg 04/24/25 13:00 04/27/25 08:42 Aspirin Ec 81 Mg Tabec PO 05/24/25 12:59 81 mg QDAY SHONA Administration Atorvastatin Calcium 40 mg 04/24/25 21:00 04/26/25 20:30 Atorvastatin Calcium 20 Mg Tablet PO 05/24/25 20:59 40 mg HS SHONA Administration Diazepam 10 mg 04/23/25 21:24 Diazepam Inj 5 Mg/Ml Vial 2 Ml IVP X1 PRN Breakthrough Agitation Folic Acid 1 mg 04/24/25 09:00 04/27/25 08:42 Folic Acid 1 Mg Tablet PO 05/24/25 08:59 1 mg QDAY SHONA Administration Ceftriaxone Sodium/Dextrose 1 gm in 50 mls @ 100 mls/hr 04/23/25 21:58 04/27/25 08:43 Rocephin/D5w 1gm Iv Premix IV 04/30/25 21:57 100 mls/hr QDAY SHONA Administration Levothyroxine Sodium 50 mcg 04/24/25 11:45 04/27/25 05:39 Levothyroxine Sodium 25 Mcg Tablet PO 05/24/25 11:44 50 mcg ACBR SHONA Administration Metoprolol Succinate 25 mg 04/25/25 14:45 04/27/25 08:40 Metoprolol Succinate Xl 25 Mg Tabcr PO 05/25/25 14:44 25 mg QDAY SHONA Administration Montelukast Sodium 10 mg 04/25/25 21:00 04/26/25 20:30 Montelukast Sodium 10 Mg Tablet PO 05/25/25 20:59 10 mg QPM SHONA Administration Pantoprazole Sodium 40 mg 04/27/25 09:00 04/27/25 08:41 Pantoprazole 40 Mg Tablet PO 05/27/25 08:59 40 mg QDAY SHONA Administration Tamsulosin HCl 0.4 mg 04/24/25 12:00 04/27/25 08:41 Tamsulosin Hcl 0.4 Mg Capsule PO 05/24/25 11:59 0.4 mg QDAY SHONA Administration Thiamine HCl 100 mg 04/24/25 09:00 04/27/25 08:43 Thiamine Inj 100 Mg/Ml Vial 2 Ml IVP 05/24/25 08:59 100 mg QDAY SHONA Administration Plan Assessment and plan: Summary: Mr Saul is a 75-year-old male with a past medical history of metastatic squamous cell carcinoma stage IV of right inguinal region metastasis to bone and lung s/p radiation therapy and follows Dr. Vasquez, paroxysmal atrial fibrillation, mild CAD by cardiac cath in 2020, dilated dilated ascending thoracic aorta at 4.5 cm, essential hypertension, type 2 diabetes mellitus, hyperlipidemia, SITA on CKD, hydronephrosis with ureteral stent in 03/2025 at [facility], BPH, mild cognitive deficiency versus dementia, significant lymphadenopathy including para-aortic as well as, iliac and external iliac lymph nodes, history of alcohol abuse for many years 12-24 beers daily presented to [facility] emergency department on 04/23/2025 with a chief complaint of questionable V. tach at care home facility, was seen in ED for uncontrollable heart rate found to have wide-complex tachycardia with regular rhythm, underlying atrial flutter with 2 is to 1 AV block. Admitted on amiodarone drip. #Wide-complex tachycardia with possible VT versus atrial fibrillation EKG reviewed mostly has atrial flutter 2 is to 1 block with underlying right bundle branch block giving the appearance of wide-complex tachycardia, patient hemodynamically stable and does have history of previous atrial fibrillation. [id number] Score: 5 HAS BLED score 2 points ? Patient was started on amiodarone drip which was eventually transition to amiodarone 200 mg twice daily ? Patient was initially on heparin drip and was transition to Xarelto 15 mg twice daily which was changed to Eliquis 5 mg twice daily ? Patient was started on metoprolol succinate 25 mg daily for rate control however had episode of RVR overnight. Recommendations: ? Continue amiodarone 200 mg p.o. twice daily ? Increase metoprolol succinate to 50 mg daily ? Start Eliquis 5 mg twice daily, discontinue Xarelto ? Continue telemetry monitoring ? Keep potassium more than 4 and magnesium greater than 2 #Coronary artery disease Patient had cardiac catheterization done in 2020 which showed only mild CAD 20% stenosis in distal RCA and some mild diffuse disease. Troponin negative x 2 for this admission. BNP 234 on 04/24 ECHO:04/24/25: Summary 1. Normal Left ventricle size and systolic function is normal. Estimated ejection fraction is 50-55%. 2. The right ventricle not well visualized but function appears normal. 3. There is mild aortic valve regurgitation. Mild AV sclerosis without stenosis. 4. There is trace mitral valve regurgitation. Mild MAC. 5. There is trace tricuspid valve regurgitation. ?Continue aspirin 81 mg and atorvastatin 40 mg for CAD prevention and control modifiable disease factors ? Outpatient cardiology follow-up with Dr. Patel ? Continue Lasix 40 mg daily, strict FRANCESCA, daily weight, fluid restriction 1800 cc. #Hypertension ?Continue metoprolol succinate as blood pressure is permissible #Hyperlipidemia Lipid panel 04/24/25 shows triglycerides 71, cholesterol 124, LDL 74, HDL 36 ?Continue atorvastatin 40 mg at bedtime, LDL goal less than 70 #Diabetes melitis by history, A1c 6.2 Patient has history of diabetes, A1c for the hospitalization is 6.2. Maintain blood glucose control #Hypothyroidism Patient has history of hypothyroidism TSH 04/24 3.16 ? Continue home dose levothyroxine 50 mcg AC SC #Acute hypoxic respiratory failure #Pneumonia #SITA on CKD #UTI #Alcohol dependence #BPH Management as per primary team Case discussed with Attending Physician Dr. Jakob Ahn MD Internal Medicine PGY-2 Disclaimer: This note was dictated by speech recognition. Minor errors in poker supervisor may be present due to voice recognition software. Attending Provider Attestation/Addendum I have personally seen and examined the patient separately on the above date of service and discussed the plan of care with the resident. I reviewed the resident Dr. Vamshi Ahn consultation progress note and agree with the resident findings and plan in the note above and have also edited the documentation to reflect my findings and plan. Jakob Juan Anumandla M.D. Interventional Cardiology
[2025-04-27 14:03] LABS: Cocci Serology, IgG Negative (Negative)
--- NOTE | 2025-04-27 14:48 | PC.PT ---
Patient is safe to continue using the bedside commode with staff assist. RN made aware.
--- NOTE | 2025-04-27 16:12 | PC.SS ---
Hospital Bed Patient?s diagnosis requires positioning of the head or upper body to be elevated more than 30 degrees. Also the diagnosis requires positioning in order to alleviate pain and if the patient requires frequent changes in the body positioning and/or has an immediate need for change in the body position. Pillows and wedges have been considered and ruled out. Bedside Commode Patient is physically incapable of utilizing regular toilet facilities because his or her diagnosis confines the patient to a single room. Patient is confined to a single level, and there is no toilet on that level; patient cannot access the toilet facilities in a timely manner due to lack of ambulation.
[2025-04-27] MEDS: MONTELUKAST SODIUM 10 MG TABLET PO (20:38)
[2025-04-27] MEDS: ATORVASTATIN CALCIUM 20 MG TABLET 40 MG PO (20:39)
[2025-04-28] VITALS (9 sets, daily range): BP systolic 120–131; BP diastolic 61–77; PULSE 61–70; RESP 17–30; TEMP 35.9–36.3; O2SAT 95–96; BMI 13.0
[2025-04-28] MEDS: LEVOTHYROXINE SODIUM 25 MCG TABLET 50 MCG PO (05:26)
[2025-04-28 06:03] LABS: Basophils # (Auto) 0.1 Thou/mm3 (0.0-0.2); Basophils % (Auto) 1 % (0-2.5); Eosinophils # (Auto) 0.4 Thou/mm3 (0.0-0.5); Eosinophils % (Auto) 5 % (0-10); Hematocrit 25.9 % (41.0-53.0); Immature Granulocytes Auto 0.04 Thou/mm3 (0.00-0.00); Lymphocytes # (Auto) 1.0 Thou/mm3 (1.0-4.8); Lymphocytes % (Auto) 12 % (10-50); Mean Corpuscular HGB Conc 32.0 g/dl (31.0-37.0); Mean Corpuscular Hemoglobin 26.3 pg (25.0-35.0); Mean Corpuscular Volume 82 fL (80-100); Monocytes # (Auto) 0.6 Thou/mm3 (0.0-0.8); Monocytes % (Auto) 7 % (0-12); Neutrophils # (Auto) 5.7 Thou/mm3 (1.8-7.7); Neutrophils % (Auto) 75 % (37-80); Nucleated Red Blood Cell # 0.00 Thou/mm3 (0.00-0.00); Nucleated Red Blood Cell % 0 /100 WBC (0); Platelet Count 219 Thou/mm3 (140-440); RDW Standard Deviation 49.8 fL (35.1-43.9); Red Blood Count 3.15 Miln/mm3 (4.50-5.90); White Blood Count 7.7 Thou/mm3 (3.8-10.6)
[2025-04-28 07:57] LABS: Hemoglobin 8.3 g/dL (13.5-16.0)
[2025-04-28] MEDS: THIAMINE INJ 100 MG/ML VIAL 2 ML IVP (08:26)
[2025-04-28] MEDS: AMIODARONE HCL 200 MG TABLET PO (08:27)
[2025-04-28] MEDS: PANTOPRAZOLE 40 MG TABLET PO (08:27)
[2025-04-28] MEDS: TAMSULOSIN HCL 0.4 MG CAPSULE PO (08:28)
[2025-04-28] MEDS: ASPIRIN EC 81 MG TABEC PO (08:28)
[2025-04-28] MEDS: METOPROLOL SUCCINATE XL 25 MG TABCR 50 MG PO (08:29)
[2025-04-28] MEDS: FOLIC ACID 1 MG TABLET PO (08:29)
[2025-04-28] MEDS: APIXABAN 2.5 MG TABLET 5 MG PO (08:30)
[2025-04-28 09:27] LABS: Alanine Aminotransferase 28 U/L (10-49); Albumin, Serum 3.6 gm/dL (3.4-4.8); Alkaline Phosphatase 139 U/L (46-116); Anion Gap 9 (7-16); Aspartate Amino Transferase 33 U/L (0-34); BUN/Creatinine Ratio 9 Ratio (12-20); Bilirubin,Total 0.8 mg/dL (0.3-1.2); Blood Urea Nitrogen 13 mg/dL (9-23); Calcium 8.5 mg/dL (8.3-10.6); Calcium (Corrected) 8.8 mg/dL (8.5-10.1); Carbon Dioxide 25.1 mMol/L (20.0-31.0); Chloride 101 mMol/L (98-107); Creatinine (Component) 1.5 mg/dL (0.6-1.3); Estimated Creatinine Clearance 45.8 mL/min (>60); Glucose 90 mg/dL (74-106); Magnesium 1.8 mg/dL (1.6-2.6); Osmolality,Calculated 270 (275-295); Phosphorous 3.0 mg/dL (2.4-5.1); Potassium 4.1 mMol/L (3.4-5.1); Sodium 135 mMol/L (136-145); eGFR 48 See Note
[2025-04-28] MEDS: Magnesium Sulfate 2 GM Ivpb 2 GM/50 ML BAG IV ×2 (09:40→11:45)
--- NOTE | 2025-04-28 11:20 | PD.RESPRO ---
Documentation for date of: 04/28/25 Subjective Subjective Interval history: Patient seen and examined at bedside, discharge was held yesterday was pending physical therapy. Patient had no overnight events, stable at bedside labs and vitals reviewed. Patient was given IV magnesium and potassium, started on furosemide. Continue amiodarone 200 mg twice daily and metoprolol succinate 50 mg daily. Continue Eliquis 5 mg p.o. twice daily. Patient will be discharged back to SNF today. Exam Vital Signs Temp Pulse Resp BP Pulse Ox O2 Del Method 96.9 F 65 28 H 125/65 95 Room Air 04/28/25 08:00 04/28/25 08:29 04/28/25 08:00 04/28/25 08:29 04/28/25 08:00 04/28/25 08:00 Narrative Exam GENERAL: AOx2, no acute distress, sitting up comfortably HEENT: mucous membranes moist, bilateral sclera anicteric CARDIOVASCULAR: irregular rate and regular rhythm, S1/S2 present, no murmurs appreciated PULMONARY: clear to auscultation bilaterally, no rales/rhonchi/wheezes ABDOMINAL: soft, non-tender, non-distended, no rebound/guarding, bowel sounds present EXTREMITIES: 1+ bilateral lower extremity edema SKIN: warm and dry, intact, no rashes NEURO: CN II-XII grossly intact, no focal deficits, alert, following commands Objective Labs 04/28/25 04:35 04/28/25 04:35 Labs: Laboratory Results - last 24 hr 04/24/25 04/28/25 08:47 04:35 WBC 7.7 RBC 3.15 L Hgb 8.3 L Hct 25.9 L MCV 82 MCH 26.3 MCHC 32.0 RDW Std Deviation 49.8 H Plt Count 219 Neut % (Auto) 75 Lymph % (Auto) 12 [place] % (Auto) 7 Eos % (Auto) 5 Baso % (Auto) 1 Neut # (Auto) 5.7 Lymph # (Auto) 1.0 [place] # (Auto) 0.6 Eos # (Auto) 0.4 Baso # (Auto) 0.1 Immature Gran # (Auto) 0.04 H Absolute Nucleated RBC 0.00 Immature Gran % 1 H Nucleated RBC % 0 Sodium 135 L Potassium 4.1 Chloride 101 Carbon Dioxide 25.1 Anion Gap 9 BUN 13 Creatinine 1.5 H Estim Creat Clear Calc 45.8 L eGFR 48 L BUN/Creatinine Ratio 9 L Glucose 90 Calculated Osmolality 270 L Calcium 8.5 Corrected Calcium 8.8 Phosphorus 3.0 Magnesium 1.8 Total Bilirubin 0.8 AST 33 ALT 28 Alkaline Phosphatase 139 H D Albumin 3.6 Coccidioides IgG Ab Negative Quality Measures Quality Measures VTE prophylaxis and none Advance care planning discussed with:: patient Assessment & Plan Assessment Current Active Medications: Generic Name Dose Route Start Last Admin Trade Name Freq PRN Reason Stop Dose Admin Acetaminophen 650 mg 04/23/25 21:24 Acetaminophen 325 Mg Tablet PO 05/23/25 21:23 Q6H PRN Fever >101.5 Amiodarone HCl 200 mg 04/25/25 14:45 04/28/25 08:27 Amiodarone Hcl 200 Mg Tablet PO 05/25/25 14:44 200 mg BID SHONA Administration Apixaban 5 mg 04/27/25 09:00 04/28/25 08:30 Apixaban 2.5 Mg Tablet PO 05/27/25 08:59 5 mg BID SHONA Administration Aspirin 81 mg 04/24/25 13:00 04/28/25 08:28 Aspirin Ec 81 Mg Tabec PO 05/24/25 12:59 81 mg QDAY SHONA Administration Atorvastatin Calcium 40 mg 04/24/25 21:00 04/27/25 20:39 Atorvastatin Calcium 20 Mg Tablet PO 05/24/25 20:59 40 mg HS SHONA Administration Diazepam 10 mg 04/23/25 21:24 Diazepam Inj 5 Mg/Ml Vial 2 Ml IVP X1 PRN Breakthrough Agitation Folic Acid 1 mg 04/24/25 09:00 04/28/25 08:29 Folic Acid 1 Mg Tablet PO 05/24/25 08:59 1 mg QDAY SHONA Administration Furosemide 40 mg 04/28/25 09:00 04/28/25 08:29 Furosemide 40 Mg Tablet PO 05/28/25 08:59 40 mg QDAY SHONA Administration Magnesium Sulfate 2 gm in 50 mls @ 25 mls/hr 04/28/25 09:29 04/28/25 09:40 Magnesium Sulfate Ivpb IV 04/28/25 11:28 25 mls/hr X1 ONE Administration Magnesium Sulfate 2 gm in 50 mls @ 25 mls/hr 04/28/25 12:00 Magnesium Sulfate Ivpb IV 04/28/25 13:59 X1 ONE Levothyroxine Sodium 50 mcg 04/24/25 11:45 04/28/25 05:26 Levothyroxine Sodium 25 Mcg Tablet PO 05/24/25 11:44 50 mcg ACBR SHONA Administration Metoprolol Succinate 50 mg 04/28/25 09:00 04/28/25 08:29 Metoprolol Succinate Xl 25 Mg Tabcr PO 05/28/25 08:59 50 mg QDAY SHONA Administration Montelukast Sodium 10 mg 04/25/25 21:00 04/27/25 20:38 Montelukast Sodium 10 Mg Tablet PO 05/25/25 20:59 10 mg QPM SHONA Administration Pantoprazole Sodium 40 mg 04/27/25 09:00 04/28/25 08:27 Pantoprazole 40 Mg Tablet PO 05/27/25 08:59 40 mg QDAY SHONA Administration Tamsulosin HCl 0.4 mg 04/24/25 12:00 04/28/25 08:28 Tamsulosin Hcl 0.4 Mg Capsule PO 05/24/25 11:59 0.4 mg QDAY SHONA Administration Thiamine HCl 100 mg 04/24/25 09:00 04/28/25 08:26 Thiamine Inj 100 Mg/Ml Vial 2 Ml IVP 05/24/25 08:59 100 mg QDAY SHONA Administration Plan Assessment and plan: Summary: Mr Saul is a 75-year-old male with a past medical history of metastatic squamous cell carcinoma stage IV of right inguinal region metastasis to bone and lung s/p radiation therapy and follows Dr. Vasquez, paroxysmal atrial fibrillation, mild CAD by cardiac cath in 2020, dilated dilated ascending thoracic aorta at 4.5 cm, essential hypertension, type 2 diabetes mellitus, hyperlipidemia, SITA on CKD, hydronephrosis with ureteral stent in 03/2025 at [facility], BPH, mild cognitive deficiency versus dementia, significant lymphadenopathy including para-aortic as well as, iliac and external iliac lymph nodes, history of alcohol abuse for many years 12-24 beers daily presented to [facility] emergency department on 04/23/2025 with a chief complaint of questionable [facility] at [facility], was seen in ED for uncontrollable heart rate found to have wide-complex tachycardia with regular rhythm, underlying atrial flutter with 2 is to 1 AV block. Admitted on amiodarone drip. #Wide-complex tachycardia with possible VT versus atrial fibrillation EKG reviewed mostly has atrial flutter 2 is to 1 block with underlying right bundle branch block giving the appearance of wide-complex tachycardia, patient hemodynamically stable and does have history of previous atrial fibrillation. [id number] Score: 5 HAS BLED score 2 points ? Patient was started on amiodarone drip which was eventually transition to amiodarone 200 mg twice daily ? Patient was initially on heparin drip and was transition to Xarelto 15 mg twice daily which was changed to Eliquis 5 mg twice daily ? Patient was started on metoprolol succinate 25 mg daily for rate control however had episode of RVR overnight. Recommendations: ? Continue amiodarone 200 mg p.o. twice daily ? Continue metoprolol succinate to 50 mg daily ? Continue Eliquis 5 mg twice daily, discontinue Xarelto ? Continue telemetry monitoring ? Keep potassium more than 4 and magnesium greater than 2 #Coronary artery disease Patient had cardiac catheterization done in 2020 which showed only mild CAD 20% stenosis in distal RCA and some mild diffuse disease. Troponin negative x 2 for this admission. BNP 234 on 04/24 ECHO:04/24/25: Summary 1. Normal Left ventricle size and systolic function is normal. Estimated ejection fraction is 50-55%. 2. The right ventricle not well visualized but function appears normal. 3. There is mild aortic valve regurgitation. Mild AV sclerosis without stenosis. 4. There is trace mitral valve regurgitation. Mild MAC. 5. There is trace tricuspid valve regurgitation. ? Continue aspirin 81 mg and atorvastatin 40 mg for CAD prevention and control modifiable disease factors ? Outpatient cardiology follow-up with Dr. Patel ? Continue Lasix 40 mg daily, strict FRANCESCA, daily weight, fluid restriction 1800 cc. #Hypertension ?Continue metoprolol succinate as blood pressure is permissible #Hyperlipidemia Lipid panel 04/24/25 shows triglycerides 71, cholesterol 124, LDL 74, HDL 36 ?Continue atorvastatin 40 mg at bedtime, LDL goal less than 70 #Diabetes melitis by history, A1c 6.2 Patient has history of diabetes, A1c for the hospitalization is 6.2. Maintain blood glucose control #Hypothyroidism Patient has history of hypothyroidism TSH 04/24 3.16 ? Continue home dose levothyroxine 50 mcg ACBR #Acute hypoxic respiratory failure #Pneumonia #SITA on CKD #UTI #Alcohol dependence #BPH Management as per primary team Case discussed with Attending Physician Dr. Jakob Ahn MD Internal Medicine PGY-2 Disclaimer: This note was dictated by speech recognition. Minor errors in financial agent may be present due to voice recognition software. Attending Provider Attestation/Addendum I have personally seen and examined the patient separately on the above date of service and discussed the plan of care with the resident. I reviewed the resident Vamshi Ahn consultation progress note and agree with the resident findings and plan in the note above and have also edited the documentation to reflect my findings and plan. Jakob Milian M.D. Interventional Cardiology
--- NOTE | 2025-04-28 11:58 | ESDS_ITS ---
Planned Discharge Date 04/28/25 DS: Providers Provider Date of admission: 04/23/25 22:25 Primary care physician: Nathan Sigala MD Admitting Provider: Jericho Hall MD Attending Provider on Admission: Talib Faulkner DO Consults: 04/24/25 10:35 Consult to Cardiology Routine Comment: A fib Consulting Provider: Jakob Milian 04/24/25 12:47 Consult to Oncology Stat Comment: Lung CA Consulting Provider: James Vasquez 04/25/25 16:37 Referral Physical Therapy Stat Comment: Physician Instructions: Attending Provider on DC: Talib Faulkner DO Discharging Provider: Talib Faulkner DO DS: Diagnosis Problem List Completed Was Problem List Reviewed/Reconciled?: Yes Hospital Course Hospital Course Hospital course: Summary: Kraig Saul 75M pmhx significant for 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 At the time, patient denied any symptoms however [facility] staff reported that patient complained of shortness of breath and was saturating at 88% on room air. Patient does have a history of pulmonary metastases. Acute hypoxic respiratory failure resolved quite quickly as chest x-ray showed right base pneumonia however patient [facility]. Patient's atrial fibrillation with RVR controlled with amiodarone drip followed by oral amiodarone and metoprolol. Of note on admission, patient was noted to have dysuria per and suprapubic tenderness. Antibiotics were started prior to urine culture collection and urine culture resulted negative. Patient also has history of alcohol dependence drinking 12-24 beers a day and was treated with WA protocol and vitamin supplementation. During hospital admission, creatinine was also noted to be elevated and [facility] discharge papers also did report SITA on that hospital ization. On discharge, patient is hemodynamically stable, labs and vitals reviewed to be stable and patient is ready to be discharged home as patient and family do not want to return to facility. Imaging: Echocardiogram shows normal LV size and systolic function. Estimated EF 50 to 55%. Right ventricle normal visualized but function appears normal. Mild AVR, mild AV sclerosis without stenosis, trace MVR, mild MAC, trace TVR Discharge Recommendations: - Please take all medications as prescribed - Please take amiodarone twice daily for 1 month and transition to once daily - STOP Xarelto - START Eliquis 5 mg twice daily - START metoprolol succinate 50 mg twice daily, do not take if SBP <90 - START Lasix 40 mg daily, take one extra if your body weight increases by 5 lbs within 2 days - AVOID drinking excessive water, LIMIT sodium intake, TAKE daily weights - Continue all home medications except as above - Follow up with your linux network engineer or linux network engineer, Dr. Milian outpatient. His office number is [phone]. Please see a linux network engineer within 1-2 weeks of discharge - Please follow up with your PCP within one week of discharge - If your symptoms worsen, please seek immediate medical attention and return to your nearest emergency room. - If you do not have a PCP, you may follow up at the [facility] at [address] [place] [address] [id number] [id number], Hospital Diagnoses: #A fib with RVR, history of #?V. tach episode, by history #Acute hypoxic respiratory failure #Pneumonia Rt base #hx of squamous cell carcinoma malignant neoplasm with liver lung and bone metastasis and lower limb lymph nodes #SITA on CKD? #UTI #Alcohol dependence #Hypertension #Prediabetic #Hyperlipidemia #hx hypothyroidism #hx of BPH Plan of care discussed with attending Dr. Faulkner and PGY-3 Dr. Zamarripa. Lizette Cedeño, DO Internal Medicine, PGY-1 Senior Resident Attestation: I discussed with and supervised the geotechnical intern physician involved in the care of this patient. I personally saw and examined the patient and discussed the assessment and plan with the entire medicine team, including my attending. I agree with the discharge plan as documented above. Anjel Zamarripa MD PGY3 Internal Medicine Time Spent with Patient Time attestation: Total time spent providing and/or coordinating discharge services: Time spent: Greater than 30 minutes Home Health Home Health Referral Orders: 04/28/25 09:14 Home Health Referral Routine Reason For Exam: debility Home-Bound The patient must either because of illness or injury, need the aid of supportive devices such as crutches, canes, wheelchairs, and walkers; the use of special transportation; or the assistance of another person in order to leave their place of residence; OR have a condition such that leaving his or her home is medically contraindicated. In addition, the patient also meets the following criteria: patient is normally unable to leave the home and leaving home requires considerable taxing effort. Addendum to Home Health Certification Practitioner's Certification: I certify that the patient has been under my care in the hospital and the care of attending physician (see below). We had a [id number] encounter on (see date below). My clinical findings indicate that the patient is home bound per the above criteria and the Home Health Services noted in these orders are medically necessary. The primary reason for the dtuj-fy-eena encounter is related to the fact that the patient requires home health services. Date Certifying Oxwc-jq-Enzi Physician Encounter: 04/23/25 Physician's Name who will Assume Oversight for Services: Nathan Sigala Physician's Phone No.who will Assume Oversight for Service: HEAT TREATING BLUER - Community Resources: No PT to Evaluate: Yes PT to evaluate and provide a treatmnet plan to increase patient's mobility and strength. Wound Care: No IV Therapy: No Discontinue PICC Line Once Treatment Complete: No RN Safety Evaluation: Yes RN to evaluate and create a plan of care that will produce positive outcomes. Palliative Treatment: No Palliative treatment and evaluate the need for hospice. Home Health Aide - Personal Care: No Home Health Aide to assist with any ADL's. Exam Vital Signs Temp Pulse Resp BP Pulse Ox O2 Del Method 96.9 F 61 28 H 125/65 95 Room Air 04/28/25 08:00 04/28/25 11:51 04/28/25 08:00 04/28/25 08:29 04/28/25 08:00 04/28/25 08:00 Narrative Exam GENERAL: AOx2, no acute distress, sitting up comfortably HEENT: mucous membranes moist, bilateral sclera anicteric CARDIOVASCULAR: regular rate and regular rhythm, S1/S2 present, no murmurs appreciated PULMONARY: clear to auscultation bilaterally, no rales/rhonchi/wheezes ABDOMINAL: soft, non-tender, non-distended, no rebound/guarding, bowel sounds present EXTREMITIES: no peripheral edema SKIN: warm and dry, intact, no rashes NEURO: CN II-XII grossly intact, no focal deficits, alert, following commands Discharge Plan Plan Patient Disposition: Home w/HOME HEALTH Patient condition on transfer: Stable Care Plan Goals: - Take amiodarone 2 tablets a day for one month and then take one a day. - We have stopped your Xarelto and started Eliquis. ? Continue taking the rest of your home medications as before ? You will have to restrict your daily liquid intake to 1.5 Litres / 50 ounces per day. This includes water, teas, coffees and soups. ? You will have to follow a low salt diet for the rest of your life. This means no [place]ine[place] food or fast food. ? You will have to take your weight daily. If your weight increases by more than 5-10 pounds in 1-2 days, take an extra water pill that day. ? You will have to measure your blood pressure daily. If the top number is less than 100, do not take your blood pressure medications that day. ? Keep a log of your blood pressures to take to your primary doctor and linux network engineer. - Follow up with your linux network engineer or linux network engineer, Dr. Milian outpatient. His office number is [phone]. Please see a linux network engineer within 1-2 weeks of discharge - Follow up with your primary care physician within 1 week of discharge. If you do not have a primary care physician, please follow up with the [facility] Residents clinic ([phone]) ? If you experience any new, worsening or persistent symptoms either call your primary doctor, or dial 911 or present to the emergency department. Prescriptions/Referrals Prescriptions/Med Rec: New amiodarone 200 mg tablet 200 mg PO BID Qty: 60 0RF Eliquis 5 mg tablet 5 mg PO BID Qty: 60 2RF furosemide 40 mg Tablet 40 mg PO QDAY 30 Days Qty: 30 0RF metoprolol succinate 25 mg Tablet Extended Release 24 Hr 50 mg PO QDAY Qty: 60 0RF thiamine HCl (vitamin B1) 100 mg capsule 100 mg PO QDAY 30 Days Qty: 30 0RF Continued tamsulosin 0.4 mg Capsule 0.4 mg PO QDAY docusate sodium 100 mg capsule 100 mg PO QDAY levothyroxine [Synthroid] 50 mcg tablet 50 mcg PO QDAY aspirin 81 mg tablet,delayed release (DR/EC) 81 mg PO QDAY Patient Comments: TAKE 1 TABLET BY MOUTH ONCE DAILY montelukast 10 mg tablet 10 mg PO QDAY magnesium hydroxide [Gentle Laxative (mag hydrox)] 400 mg/5 mL suspension 5 ml PO QDAY PRN (Reason: constipation) Rx Instructions: NO BM for 3 days quetiapine 25 mg tablet 50 mg PO BID Discontinued amiodarone 200 mg Tablet 200 mg PO QDAY Xarelto 20 mg Tablet 20 mg PO QDAY Rx Instructions: must administer with evening meal tramadol 50 mg tablet 50 mg PO Q8H furosemide 20 mg tablet 20 mg PO QDAY losartan 50 mg tablet 50 mg PO QDAY metoprolol tartrate [Lopressor] 50 mg tablet 25 mg PO BID Referrals: Jakob Milian MD [Physician, Cardiology] Nathan Sigala MD [Primary Care Provider] Patient/Caregiver Discharge Instructions Other Discharge Activity Instructions:: Take amiodarone 2 tablets a day for one month and then take one a day. - We have stopped your Xarelto and started Eliquis. ? Continue taking the rest of your home medications as before ? You will have to restrict your daily liquid intake to 1.5 Litres / 50 ounces per day. This includes water, teas, coffees and soups. ? You will have to follow a low salt diet for the rest of your life. This means no [place] food or fast food. ? You will have to take your weight daily. If your weight increases by more than 5-10 pounds in 1-2 days, take an extra water pill that day. ? You will have to measure your blood pressure daily. If the top number is less than 100, do not take your blood pressure medications that day. ? Keep a log of your blood pressures to take to your primary doctor and linux network engineer. - Follow up with your linux network engineer or linux network engineer, Dr. Milian outpatient. His office number is [phone]. Please see a linux network engineer within 1-2 weeks of discharge - Follow up with your primary care physician within 1 week of discharge. If you do not have a primary care physician, please follow up with the [facility] Residents clinic ([phone]) ? If you experience any new, worsening or persistent symptoms either call your primary doctor, or dial 911 or present to the emergency department. Education Materials: AFL/[employer] Print Language: Macedonian Stand Alone Forms: Nedra Award Info., Patient Portal Info Letter Discharge Order Discharge Orders: Discharge (Routine); Ordered 04/28/25 Ordered By: Beny Schwab Quality Discharge Quality Measures VTE prophylaxis Attestestation Attestation I have discussed and was present for the essential components of the discharge history, physical examination, diagnosis, and discharge treatment plan with the resident. I agree with the patient's discharge care as documented by the resident and amended herein by me. Caesar Faulkner DO. The patient understood all discharge instructions, all questions were answered s atisfactorily. The patient was instructed to return to the Emergency Department is symptoms worsened or persisted. Patient was stable, afebrile, tolerating p.o. intake at time of discharge home with home health. Although this document has been carefully reviewed, there may still be some phonetic and other typographical errors. These errors are purely grammatical due to imperfections in the software program and should not be construed in any way to compromise the substance of the patient's medical care during this visit.
[2025-04-28 13:23] LABS: Albumin/Globulin Ratio 1.1 (1.2-2.2); Globulin 3.4 gm/dL (2.3-3.5); Total Protein 7.0 gm/dL (5.7-8.2)
--- NOTE | 2025-04-28 15:53 | PC.CC ---
HH ref sent out, waiting for responses.
[2025-04-28] MEDS: HEPARIN SOD LOCK SYR 100 UNIT/ML 500 UNIT IV (16:33)
--- NOTE | 2025-04-29 18:49 | PC.CM ---
[facility] accepted patient we are pending start of care date.
--- NOTE | 2025-04-30 09:58 | PC.CC ---
[facility] 05/01
== END 2025-04-28 17:00 | disposition home health service (06) | DRG 201 ==
LOC: SERX 18:14 → SERHOLD 23:10 → S2NX 04-24 05:50
PROVIDERS: Internal Medicine Cardiovascular Disease; Admitting Provider Student in an Organized Health Care Education/Training Program; Emergency Provider Family Medicine; PCP Hospitalist; Visit Provider Student in an Organized Health Care Education/Training Program
DX: I48.0 Paroxysmal atrial fibrillation (principal); J96.01 Acute respiratory failure with hypoxia; C77.4 Secondary and unspecified malignant neoplasm of inguinal and lower limb lymph nodes; E78.5 Hyperlipidemia, unspecified; I12.9 Hypertensive chronic kidney disease with stage 1 through stage 4 chronic kidney disease, or unspecified chronic kidney disease; E11.22 Type 2 diabetes mellitus with diabetic chronic kidney disease; N18.9 Chronic kidney disease, unspecified; E03.9 Hypothyroidism, unspecified; N40.0 Benign prostatic hyperplasia without lower urinary tract symptoms; C79.51 Secondary malignant neoplasm of bone; C78.00 Secondary malignant neoplasm of unspecified lung; C78.7 Secondary malignant neoplasm of liver and intrahepatic bile duct; N17.9 Acute kidney failure, unspecified; N39.0 Urinary tract infection, site not specified; J18.9 Pneumonia, unspecified organism; D50.9 Iron deficiency anemia, unspecified; F03.90 Unspecified dementia, unspecified severity, without behavioral disturbance, psychotic disturbance, mood disturbance, and anxiety; I44.0 Atrioventricular block, first degree; F10.20 Alcohol dependence, uncomplicated; I25.10 Atherosclerotic heart disease of native coronary artery without angina pectoris; Z87.891 Personal history of nicotine dependence; Z79.01 Long term (current) use of anticoagulants; Z79.4 Long term (current) use of insulin; I45.10 Unspecified right bundle-branch block; I48.92 Unspecified atrial flutter; Z79.82 Long term (current) use of aspirin; Z79.84 Long term (current) use of oral hypoglycemic drugs; Z79.890 Hormone replacement therapy; Z79.899 Other long term (current) drug therapy; Z92.3 Personal history of irradiation
CPT/HCPCS: 36415; 51702; 70450; 71045; 80053; 80061; 80320; 81001; 82607; 82746; 83036; 83540; 83550; 83735; 83880; 84100; 84145; 84439; 84443; 84484; 85025; 85610; 85730; 86331; 86635; 87081; 87086; 87205; 87811; 93005; 93306; 96365; 96366; 96372; 96375; 97162; 99285; A4314; J0283; J0696; J1642; J1644; J2060; J2470; J3411; J3475; J3486; J7030; J7999; A9270; G0480